=== PATIENT | male | born 1950 | race Asian ===

== ENCOUNTER 2018-08-08 03:59 | Inpatient (IN) | payer MEDICARE, MEDICAID ==
[~2018-08-08] VITALS: Ht 165.1 cm; Wt 59.9 kg
--- NOTE | 2018-08-08 04:07 | NUR ---
ED Nurse Note: Received report from PERLA Aguilar. Patient awake and eating. AO2. NAD. Denies pain and SOB.
--- NOTE | 2018-08-08 04:08 | Emergency Room Report ---
History of Present Illness General Chief Complaint: Altered Level of Consciousness Source: Patient, Medical Record, EMS Present Illness HPI Is a 67-year-old Irish male with a history of insulin-dependent diabetes. He presents with chief complaint of hypoglycemia. He was at long term and was diaphoretic and hypotensive and altered mental status. Blood glucose was 27. He was given amp of D50. He felt better now. Still weak. No nausea no vomiting. No fever chills. Unknown reason why he was hypoglycemic. Allergies: Coded Allergies: No Known Allergies (Unverified , 08/08/18) Patient History Past Medical History: see triage record, old chart reviewed, DM Past Surgical History: other Pertinent Family History: none Social History: Denies: smoking Immunizations: other Reviewed Nursing Documentation: PMH: Agreed; PSxH: Agreed Nursing Documentation-PMH Past Medical History Deferred: Patient Unconscious Review of Systems Constitutional: Reports: malaise, weakness Eye: Denies: eye pain, blurred vision ENT: Denies: ear pain, nose congestion, throat swelling Respiratory: Denies: cough, shortness of breath Cardiovascular: Denies: chest pain, palpitations Gastrointestinal: Denies: abdominal pain, diarrhea, nausea, vomiting Musculoskeletal: Denies: back pain, joint pain Skin: Denies: rash Neurological: Denies: headache, numbness Endocrine: Denies: increased thirst, increased urine Hematologic/Lymphatic: Denies: easy bruising All Other Systems: negative except mentioned in HPI Physical Exam Vital Signs Date Time Temp Pulse Resp B/P (MAP) Pulse Ox O2 Delivery O2 Flow Rate FiO2 08/08/18 03:41 98.4 60 22 100/53 100 Room Air vitals normal Sp02 EP Interpretation: reviewed, normal General Appearance: well appearing, no apparent distress, alert, lethargic Head: normocephalic, atraumatic Eyes: bilateral eye PERRL, bilateral eye EOMI ENT: hearing grossly normal, normal pharynx Neck: full range of motion, supple, no meningismus Respiratory: chest non-tender, lungs clear, normal breath sounds Cardiovascular #1: regular rate, rhythm, no murmur Gastrointestinal: normal bowel sounds, non tender, no mass, no organomegaly, no bruit, non-distended Musculoskeletal: back normal, normal range of motion Psychiatric: mood/affect normal Skin: warm/dry Medical Decision Making Diagnostic Impression: Primary Impression: Altered level of consciousness Additional Impressions: Hypoglycemia due to type 1 diabetes mellitus UTI (urinary tract infection) Qualified Codes: N30.00 - Acute cystitis without hematuria Anemia Qualified Codes: D64.9 - Anemia, unspecified Leukopenia Qualified Codes: D72.819 - Decreased white blood cell count, unspecified Thrombocytopenia ER Course Patient presents with altered mental status secondary to hypoglycemia. Blood sugar glucose improved. Patient failure. He still little bit confused. No focal deficit to indicate TIA or CVA. He does have infectious process. We'll treat for UTI. Will admit for glucose monitoring and IV antibiotics. I discussed the case with Dr. Fontenot who will admit. Lab Results Impression lab with pantocytopenia EKG Diagnostic Results Rate: normal Rhythm: NSR ST Segments: no acute changes Rhythm Strip Diag. Results Rhythm Strip Time: 04:08 EP Interpretation: yes Rate: 60 Rhythm: NSR, no PVC's, no ectopy Last Vital Signs Date Time Temp Pulse Resp B/P (MAP) Pulse Ox O2 Delivery O2 Flow Rate FiO2 08/08/18 03:41 98.4 60 22 100/53 100 Room Air Status: improved Disposition: ADMITTED INPATIENT Condition: Serious Mauri Jackson MD Aug 08, 2018 04:08
--- NOTE | 2018-08-08 04:15 | NUR ---
ED Nurse Note: Imaging at bedside
[2018-08-08 04:26] LABS: HEMATOCRIT 29.4 % (42.0-52.0); HEMOGLOBIN 10.4 G/DL (14.2-18.0); MEAN CORPUSCULAR VOLUME 95 FL (80-99); PLATELET COUNT 47 K/UL (150-450); RED BLOOD COUNT 3.09 M/UL (4.70-6.10); RED CELL DISTRIBUTION WIDTH 12.6 % (11.6-14.8); WHITE BLOOD COUNT 2.9 K/UL (4.8-10.8)
[2018-08-08 04:37] VITALS: BP 104/51
[2018-08-08 04:38] LABS: ANION GAP 3 mmol/L (5-15); BLOOD UREA NITROGEN 19 mg/dL (7-18); CALCIUM 7.6 MG/DL (8.5-10.1); CARBON DIOXIDE 29 MMOL/L (21-32); CHLORIDE 104 MMOL/L (98-107); CREATININE 0.8 MG/DL (0.55-1.30); POTASSIUM 3.3 MMOL/L (3.5-5.1); SODIUM 136 MMOL/L (136-145)
--- NOTE | 2018-08-08 04:50 | NUR ---
ED Nurse Note: Urine collected; sent down to lab. Assessed blood glucose; 171. ERMD made aware
[2018-08-08 05:27] LABS: APPEARANCE,URINE CLOUDY; BILIRUBIN, URINE NEGATIVE (NEGATIVE); COLOR,URINE PALE YELLOW; GLUCOSE, URINE (UA) 2+ (NEGATIVE); KETONES,URINE NEGATIVE (NEGATIVE); LEUKOCYTE ESTERASE ,URINE 3+ (NEGATIVE); NITRITE,URINE NEGATIVE (NEGATIVE); PH,URINE 7 (4.5-8.0); PROTEIN,URINE 1+ (NEGATIVE); UROBILINOGEN,URINE NORMAL MG/DL (0.0-1.0)
--- NOTE | 2018-08-08 05:31 | NUR ---
Spoke with Luba at [facility]-aware of patient going back by ambulance.
--- NOTE | 2018-08-08 05:44 | NUR ---
Spoke with Luba again, informed her of patient being admitted to [facility] [place] [place].
[2018-08-08] MEDS ORDERED: cefTRIAXone 1 GM in NS 55 ML IVPB ONE (05:45)
--- NOTE | 2018-08-08 05:58 | NUR ---
ED Nurse Note: VRE CRE MRSA swabs collected; sent down to lab
[2018-08-08 06:00] VITALS: BP 102/66
[2018-08-08] MEDS ORDERED: XIFAXAN550 MG ORAL (06:11)
[2018-08-08] MEDS ORDERED: TAMSULOSIN HCL0.4 MG ORAL (06:11)
[2018-08-08] MEDS ORDERED: LACTULOSE20 GM/301 ORAL (06:11)
[2018-08-08] MEDS ORDERED: SPIRONOLACTONE100 MG ORAL (06:11)
[2018-08-08] MEDS ORDERED: PROPRANOLOL HCL10 MG ORAL (06:11)
[2018-08-08] MEDS ORDERED: VIREAD300 MG ORAL (06:11)
[2018-08-08] MEDS ORDERED: DITROPAN10 MG ORAL (06:11)
[2018-08-08] MEDS ORDERED: HUMALOG100 UNIT/3 SUBQ (06:11)
[2018-08-08] MEDS ORDERED: FUROSEMIDE20 M1 ORAL (06:11)
[2018-08-08] MEDS ORDERED: ASPIR 8181 MG ORAL (06:11)
[2018-08-08] MEDS ORDERED: ATORVASTATIN CA20 MG ORAL (06:11)
[2018-08-08] MEDS ORDERED: NOVOLIN 70100 UNIT/2 SQ ×2 (06:11)
[2018-08-08] MEDS ORDERED: ISOSORBIDE DINI30 MG ORAL (06:11)
[2018-08-08 06:30] VITALS: BP 115/55
[2018-08-08 07:00] VITALS: BP 102/81
[2018-08-08] MEDS: D5 1/2NS w/KCl 20mEq 1,000 ML IV SCH ×6 (07:04→16:14)
--- NOTE | 2018-08-08 07:12 | NUR ---
ED Nurse Note: Called Med Surg for report. Currently shift change report. Will attempt again at 0730
--- NOTE | 2018-08-08 07:31 | NUR ---
TRANSFER TO FLOOR: Patient transferred to Med Surg 315-2 as ordered, per MD Po. Report given to PERLA Rapp. Belongings list completed with receiving RN. Pt AO2. PARAG. VSS.
--- NOTE | 2018-08-08 08:00 | NUR ---
NURSE NOTES: Pt received from ER Polish speaker. Will follow up with Dr Fontenot for orders. Breathing room air no signs of distress or facial grimace of pain
[2018-08-08] MEDS: cefTRIAXone 1 GM in D5W 55 ML IVPB SCH (12:00)
--- NOTE | 2018-08-08 12:22 | Consultation ---
History of Present Illness General Date patient seen: Aug 08, 2018 Chief Complaint: Altered Level of Consciousness Present Illness HPI 67-year-old Faroese male with a history of insulin-dependent diabetes, Hepatitis , cirrhosis, was recently discharged form [facility] to [facility] , brought in by paramedics with CC of ALOC secondary to hypoglycemia. He was diaphoretic and hypotensive. His Blood glucose was 27. He was given amp of D50. Pt is admitted for further work up. Pt is awake, doesn't speak Australian and according to children at bed site, he is confused. Allergies: Coded Allergies: No Known Allergies (Unverified , 08/08/18) Medication History Scheduled Aspirin* (Aspir 81*), 81 MG ORAL DAILY, (Reported) Atorvastatin Calcium* (Atorvastatin Calcium*), 20 MG ORAL BEDTIME, (Reported) Furosemide* (Lasix*), 20 MG ORAL DAILY, (Reported) Insulin NPH Hum/Reg Insulin Hm (Novolin 70-30 Flexpen), 50 UNIT SQ QHS, ( Reported) Isosorbide Dinitrate* (Isordil*), 30 MG ORAL DAILY, (Reported) Lactulose (Lactulose*), 30 ML ORAL BID, (Reported) Oxybutynin Chloride (Oxybutynin Chloride), 10 MG ORAL DAILY, (Reported) Propranolol Hcl* (Inderal*), 10 MG ORAL BID, (Reported) Rifaximin* (Xifaxan*), 550 MG ORAL TWICE A DAY, (Reported) Spironolactone* (Spironolactone*), 50 MG ORAL DAILY, (Reported) Tamsulosin Hcl (Tamsulosin Hcl*), 0.4 MG ORAL BEDTIME, (Reported) Tenofovir Disoproxil Fumarate* (Viread*), 25 MG ORAL DAILY, (Reported) Miscellaneous Medications Insulin Lispro (Humalog), 0 SUBQ, (Reported) Insulin NPH Hum/Reg Insulin Hm (Novolin 70-30 Flexpen), 100 UNIT SQ, (Reported) Patient History Healthcare decision maker Resuscitation status Full Code Advanced Directive on File Past Medical/Surgical History Past Medical/Surgical History: (1) History of diabetes mellitus (2) Hepatic cirrhosis (3) hepatitis Review of Systems All Other Systems: negative except mentioned in HPI Physical Exam General Appearance: cachetic Lines, tubes and drains: peripheral HEENT: normocephalic, atraumatic Neck: non-tender, normal alignment Respiratory/Chest: chest wall non-tender, lungs clear Breasts: no masses Cardiovascular/Chest: normal peripheral pulses, normal rate Abdomen: normal bowel sounds, no organomegaly, other - ? ascites Genitourinary/Rectal: normal genital exam Extremities: normal range of motion Skin Exam: normal pigmentation Last 24 Hour Vital Signs Date Time Temp Pulse Resp B/P (MAP) Pulse Ox O2 Delivery O2 Flow Rate FiO2 08/08/18 08:13 Room Air 08/08/18 07:23 97.6 67 15 102/81 100 Nasal Cannula 2.0 08/08/18 07:00 97.6 67 15 102/81 100 Nasal Cannula 2.0 08/08/18 06:30 97.6 63 18 115/55 96 Nasal Cannula 2.0 08/08/18 06:00 98.4 64 16 102/66 99 Nasal Cannula 2.0 08/08/18 05:29 60 22 Nasal Cannula 2.0 08/08/18 04:37 98.4 60 22 104/51 100 Nasal Cannula 2.0 08/08/18 03:41 98.4 60 22 100/53 100 Room Air Intake and Output 08/07/18 08/08/18 19:00 07:00 Intake Total 1055 ml Balance 1055 ml Intake IV Total 1055 ml # Voids 1 Laboratory Tests Test 08/08/18 04:02 08/08/18 04:50 White Blood Count 2.9 K/UL (4.8-10.8) L Red Blood Count 3.09 M/UL (4.70-6.10) L Hemoglobin 10.4 G/DL (14.2-18.0) L Hematocrit 29.4 % (42.0-52.0) L Mean Corpuscular Volume 95 FL (80-99) Mean Corpuscular Hemoglobin 33.5 PG (27.0-31.0) H Mean Corpuscular Hemoglobin Concent 35.3 G/DL (32.0-36.0) Red Cell Distribution Width 12.6 % (11.6-14.8) Platelet Count 47 K/UL (150-450) L Mean Platelet Volume 7.6 FL (6.5-10.1) Neutrophils (%) (Auto) % (45.0-75.0) Lymphocytes (%) (Auto) % (20.0-45.0) Monocytes (%) (Auto) % (1.0-10.0) Eosinophils (%) (Auto) % (0.0-3.0) Basophils (%) (Auto) % (0.0-2.0) Differential Total Cells Counted 100 Neutrophils % (Manual) 70 % (45-75) Lymphocytes % (Manual) 19 % (20-45) L Monocytes % (Manual) 9 % (1-10) Eosinophils % (Manual) 1 % (0-3) Basophils % (Manual) 1 % (0-2) Band Neutrophils 0 % (0-8) Platelet Estimate Decreased L Platelet Morphology Normal Hypochromasia 1+ Sodium Level 136 MMOL/L (136-145) Potassium Level 3.3 MMOL/L (3.5-5.1) L Chloride Level 104 MMOL/L (98-107) Carbon Dioxide Level 29 MMOL/L (21-32) Anion Gap 3 mmol/L (5-15) L Blood Urea Nitrogen 19 mg/dL (7-18) H Creatinine 0.8 MG/DL (0.55-1.30) Estimat Glomerular Filtration Rate > 60 mL/min (>60) Glucose Level 185 MG/DL (74-106) H Calcium Level 7.6 MG/DL (8.5-10.1) L Troponin I 0.041 ng/mL (0.000-0.056) Urine Color Pale yellow Urine Appearance Cloudy Urine pH 7 (4.5-8.0) Urine Specific [place] 1.010 (1.005-1.035) Urine Protein 1+ (NEGATIVE) H Urine Glucose (UA) 2+ (NEGATIVE) H Urine Ketones Negative (NEGATIVE) Urine Blood 4+ (NEGATIVE) H Urine Nitrite Negative (NEGATIVE) Urine Bilirubin Negative (NEGATIVE) Urine Urobilinogen Normal MG/DL (0.0-1.0) Urine Leukocyte Esterase 3+ (NEGATIVE) H Urine RBC 2-4 /HPF (0 - 0) H Urine WBC 20-30 /HPF (0 - 0) H Urine Squamous Epithelial Cells Occasional /LPF Urine Bacteria Few /HPF (NONE) Urine Yeast Moderate /HPF (NONE) H Microbiology Date/Time Source Procedure Growth Status 08/08/18 05:50 Rectum Received Height (Feet): 5 Height (Inches): 7.00 Weight (Pounds): 170 Medications Current Medications Medications (Trade) Dose Ordered Sig/Aubrey Route PRN Reason Start Time Stop Time Status Last Admin Dose Admin Ceftriaxone Sodium 1 gm/ Dextrose 55 ml @ 110 mls/hr Q24H IVPB 08/08/18 12:00 08/15/18 11:59 Dextrose (Dextrose 50%) 25 ml Q30M PRN IV Hypoglycemia 08/08/18 12:00 09/07/18 11:59 UNV Dextrose (Dextrose 50%) 50 ml Q30M PRN IV Hypoglycemia 08/08/18 12:00 09/07/18 11:59 UNV Dextrose/ Electrolytes 1,000 ml @ 100 mls/hr Q10H IV 08/08/18 07:00 09/07/18 06:59 08/08/18 07:04 Insulin Aspart (NovoLOG) BEFORE MEALS AND HS SUBQ 08/08/18 16:30 09/07/18 16:29 UNV Isosorbide Dinitrate (Isordil) 30 mg DAILY ORAL 08/08/18 11:00 09/07/18 10:59 Lactulose (Cephulac) 30 gm THREE TIMES A DAY ORAL 08/08/18 13:00 09/07/18 12:59 UNV Oxybutynin Chloride (Ditropan) 10 mg BEFORE BREAKFAST ORAL 08/09/18 06:30 09/08/18 06:29 Propranolol HCl (Inderal) 10 mg EVERY 12 HOURS ORAL 08/08/18 21:00 09/07/18 20:59 Rifaximin (Xifaxan) 550 mg EVERY 12 HOURS ORAL 08/08/18 21:00 08/15/18 20:59 Tamsulosin HCl (Flomax) 0.4 mg BEDTIME ORAL 08/08/18 21:00 09/07/18 20:59 Assessment/Plan Problem List: (1) Acute encephalopathy ICD Codes: G93.40 - Encephalopathy, unspecified SNOMED: 61847256, 670505668 (2) Hypoglycemia due to type 1 diabetes mellitus ICD Codes: E10.649 - Type 1 diabetes mellitus with hypoglycemia without coma SNOMED: 53609409373140, 41173158 (3) UTI (urinary tract infection) ICD Codes: N39.0 - Urinary tract infection, site not specified SNOMED: 08820182, 49596806 Qualifiers: Qualified Codes: N30.00 - Acute cystitis without hematuria (4) Thrombocytopenia ICD Codes: D69.6 - Thrombocytopenia, unspecified SNOMED: 315633302, 969055617 (5) Anemia ICD Codes: D64.9 - Anemia, unspecified SNOMED: 042265719 Qualifiers: Qualified Codes: D64.9 - Anemia, unspecified (6) Leukopenia ICD Codes: D72.819 - Decreased white blood cell count, unspecified SNOMED: 89212704, 679290114 Qualifiers: Qualified Codes: D72.819 - Decreased white blood cell count, unspecified (7) hepatitis (8) History of diabetes mellitus ICD Codes: Z86.39 - Personal history of other endocrine, nutritional and metabolic disease SNOMED: 603205373 (9) Hepatic cirrhosis ICD Codes: K74.60 - Unspecified cirrhosis of liver SNOMED: 04717065 Assessment/Plan paracentesis IV abx sliding scale check ammonia level GI and endo evaluation dvt prophylaxis f/u labs check pt/ptt. Macy Jasso MD Aug 08, 2018 12:22
--- NOTE | 2018-08-08 12:50 | NUR ---
NURSE NOTES: pt extremely confused family here at bedside earlier in shift stating that pt does not understand the need for IV. Georgian speaker, unable to understand what pt is saying family translating " HE is not making sense right now" Will follow up with MD for possible change from IV to PO
[2018-08-08] MEDS: Lactulose 20gm/30ml UDC ORAL SCH ×2 (13:21→17:24)
--- NOTE | 2018-08-08 15:52 | Diagnostic Imaging Report ---
EXAM: XR Chest, 1 View CLINICAL HISTORY: AMS TECHNIQUE: Frontal view of the chest. COMPARISON: No relevant prior studies available. FINDINGS: Lungs: There are some mild bronchiectatic changes in the left hilar area. Pleural space: Unremarkable. No pneumothorax. Heart: Unremarkable. No cardiomegaly. Mediastinum: Unremarkable. Bones/joints: Degenerative changes in the thoracic spine. IMPRESSION: Mild left hilar bronchiectasis. No acute consolidation.
[2018-08-08] MEDS: Fluconazole 100mg tab ORAL SCH (16:08)
[2018-08-08] MEDS: NovoLOG Insulin Flexpen SUBQ SCH ×2 (17:23→22:21)
[2018-08-08] MEDS ORDERED: Propranolol 10mg tab ORAL SCH (18:00)
--- NOTE | 2018-08-08 19:45 | NUR ---
HAND-OFF: Report given to Jesús DUNCAN.
--- NOTE | 2018-08-08 19:45 | NUR ---
NURSE NOTES: Dr Fontenot phoned to be made aware of pt bx of pulling on iv tubing and pole, and suddenly attempting to get out of bed. Pt blood sugar running in the 300 D5 with 20meq, Dr gave orders to d/c previous fluid and change fluid to NS with [address] informed that end of shift while radio script writer was providing pereneal care hematuria noted. made aware that pt does not have heparin as a dvt prophylaxis. Pt has an order for sequential devices , yet walk frequently , placing devices may potentiate fall risk. made aware of patient impulse bx. Dr gave instructions to reattempt to place IV if not possible , gave okay to attempt in leg. If the leg iv is not successful no further orders
[2018-08-08 20:00] VITALS: BP 118/63
--- NOTE | 2018-08-08 20:00 | NUR ---
NURSE NOTES: Pt lying in bed w/bed in lowest position and call light within reach. Pt alert to self only and alternates between speaking Irish/Upper Sorbian and VSS. Per morning shift RN, pt pulled out IV and presently has no IV access; will attempt to start IV. Skin intact and pt in no apparent distress at this time. Will continue to monitor.
[2018-08-08] MEDS ORDERED: Atorvastatin 20mg tab ORAL SCH (21:00)
[2018-08-08] MEDS ORDERED: NS w/KCl 20mEq 1,000 ML IV SCH (21:00)
[2018-08-08] MEDS ORDERED: Tamsulosin 0.4mg cap ORAL SCH (21:00)
--- NOTE | 2018-08-08 21:00 | History and Physical Report ---
DATE OF ADMISSION: 08/08/2018 NOTE: INCOMPLETE DICTATION CHIEF COMPLAINT: The patient is a 67-year-old male, who presents with chief complaint of altered mental status. HISTORY OF PRESENT ILLNESS: The patient has history of insulin-dependent diabetes. The patient himself is Bulgarian-speaking. The patient is able to speak some Greek. Apparently, the patient was confused at [facility]. He was noted to have blood sugar of 27. EMS was called. The patient was transported to [facility]. The patient was admitted for hypoglycemia secondary to insulin use in diabetes. REVIEW OF SYSTEMS: CONSTITUTIONAL: The patient denies weight loss or weight gain. The patient denies fevers or chills. HEENT: The patient denies ear or throat pain. The patient denies headache. CARDIOVASCULAR: The patient denies palpitation or chest pain. CHEST: The patient denies wheeze or shortness breath. ABDOMINAL: The patient denies nausea, vomiting, diarrhea, or constipation. GENITOURINARY: The patient denies dysuria or increased frequency of urination. NEUROMUSCULAR: The patient denies seizures or generalized weakness. PAST MEDICAL HISTORY: Significant for: 1. Diabetes type 2. 2. Hypercholesterolemia. 3. Chronic hepatitis B. 4. Liver cirrhosis. 5. Portal hypertension. 6. Benign prostatic hypertrophy. PAST SURGICAL HISTORY: The patient denies. CURRENT MEDICATIONS: 1. Aspirin 81 mg one tablet p.o. daily. 2. Atorvastatin 20 mg p.o. daily. 3. Lasix 20 mg p.o. daily. 4. Lispro sliding scale. 5. Isosorbide dinitrate 30 mg p.o. daily. 6. 70/30 insulin 25 units subcutaneously nightly. 7. Insulin 70/30, 50 units subcutaneously every morning. 8. Oxybutynin 10 mg p.o. daily. 9. Propranolol 10 mg p.o. p.r.n. systolic greater than one p.o. twice daily. 10. Spironolactone 50 mg p.o. daily. 11. Flomax 0.4 mg p.o. daily. 12. Tenofovir 25 mg p.o. daily. 13. Xifaxan 550 mg p.o. twice daily. ALLERGIES: No known drug allergies. SOCIAL HISTORY: The patient is single and is a resident of [facility]. The patient denies tobacco or alcohol use. PHYSICAL EXAMINATION: VITAL SIGNS: Temperature 98.4, respirations 16, blood pressure 102/66, pulse 64. GENERAL: The patient is thin-appearing male, in no apparent distress. HEENT: Eyes, pupils equal and responsive to light and accommodation. Extraocular movements are intact. NECK: Supple without lymphadenopathy. CHEST: Lungs are clear to auscultation bilaterally without wheezes or rales. CARDIOVASCULAR: Regular rhythm and rate. S1 and S2 normal without murmurs, rubs, or gallops. ABDOMEN: Soft, nontender, and nondistended. Positive bowel sounds. No evidence of hepatosplenomegaly. Currently, no rebound or guarding noted. EXTREMITIES: Negative for clubbing, cyanosis, or edema. RECTAL: Refused. GENITAL: Refused. NEUROLOGIC: Cranial nerves II through XII are grossly intact without focal deficits. Motor strength is 5/5 bilaterally intact. Deep tendon reflexes are 2+, plantar. LABORATORY STUDIES: WBC 2.9, hemoglobin 10.4, hematocrit 29.4, platelets 47,000. Sodium 136, potassium 3.3, chloride 104, CO2 29, BUN 19, creatinine 0.8, glucose 185. Urinalysis showed 1+ protein, 2+ glucose, 4+ blood, 3+ leukocyte esterase with 20-30 wbc's. ASSESSMENT: This is a 67-year-old male with: 1. Hypoglycemia. 2. Urinary tract infection. 3. Diabetes type 2. 4. Hypercholesterolemia. 5. Chronic hepatitis B. 6. Liver cirrhosis. 7. Portal hypertension. 8. Benign prostatic hypertrophy. TREATMENT: 1. Hypoglycemia/diabetes type 2. The patient has been started on NovoLog sliding scale. The patient is currently receiving intravenous fluids. An endocrinology consultation has been obtained with Dr. Kellogg. 2. Urinary tract infection. The patient has been started empirically on intravenous ceftriaxone. A urine culture is pending. We will follow recommendation. 3. Hypercholesterolemia. Continue Lipitor as above. 4. Hypertension. Prudence Whitaker JOB#: [id number] CC:
--- NOTE | 2018-08-08 21:30 | NUR ---
NURSE NOTES: Per morning shift RN stated that if cannot re-establish IV access may DC IVF. Will attempt to start IV.
--- NOTE | 2018-08-08 21:45 | History and Physical Report ---
DATE OF ADMISSION: 08/08/2018 CHIEF COMPLAINT: The patient is a 67-year-old male, who presents with chief complaint of low blood sugar. HISTORY OF PRESENT ILLNESS: The patient is a resident of [facility]. The patient became increasingly confused this morning. The patient's blood sugar was checked. The patient's fingerstick glucose was found to be 27. The patient was transported to [facility]. The patient was admitted for hypoglycemia. REVIEW OF SYSTEMS: CONSTITUTIONAL: The patient denies weight loss or weight gain. The patient denies fevers or chills. HEENT: The patient denies ear or throat pain. The patient denies headache. CARDIOVASCULAR: The patient denies palpitations or chest pain. CHEST: The patient denies wheeze or shortness of breath. ABDOMEN: The patient denies nausea, vomiting, diarrhea, or constipation. GENITOURINARY: The patient denies dysuria or increased frequency of urination. NEUROMUSCULAR: The patient denies seizures or generalized weakness. PAST MEDICAL HISTORY: Significant for, 1. Diabetes type 2. 2. Hypercholesterolemia. 3. Chronic hepatitis B. 4. Liver cirrhosis. 5. Portal hypertension. 6. Benign prostatic hypertrophy. PAST SURGICAL HISTORY: The patient denies. CURRENT MEDICATIONS: 1. Aspirin 81 mg one tablet p.o. daily. 2. Atorvastatin 20 mg p.o. daily. 3. Furosemide 20 mg p.o. daily. 4. Lispro sliding scale. 5. Isosorbide dinitrate 30 mg p.o. daily. 6. Lactulose 30 mL p.o. twice daily. 7. NPH insulin 25 units subcutaneously at bedtime. 8. 70/30, insulin 50 units subcutaneously q.a.m. 9. 70/30, insulin 25 units subcutaneously at bedtime. 10. Oxybutynin 10 mg p.o. daily. 11. Propranolol 10 mg p.o. twice daily. 12. Spironolactone 50 mg p.o. daily. 13. Flomax 0.4 mg p.o. daily. 14. Tenofovir 25 mg p.o. daily. 15. Xifaxan 550 mg p.o. twice daily. ALLERGIES: No known drug allergies. SOCIAL HISTORY: The patient is single and lives at [facility]. The patient denies tobacco or alcohol use. PHYSICAL EXAMINATION: VITAL SIGNS: Temperature 98.4, respirations 16, pulse 64, and blood pressure 102/66. GENERAL: The patient is a well-developed and well-nourished thin appearing male, in no apparent distress. HEENT: Eyes, pupils are equal and responsive to light and accommodation. Extraocular movements are intact. NECK: Supple without lymphadenopathy. CHEST: Lungs are clear to auscultation bilaterally without wheezes or rales. CARDIOVASCULAR: Regular rhythm and rate. S1 and S2 are normal without murmurs, rubs, or gallops. ABDOMEN: Soft, nontender, and nondistended. Positive bowel sounds. No evidence of hepatosplenomegaly. Currently, no rebound or guarding noted. EXTREMITIES: Negative for clubbing, cyanosis, or edema. RECTAL: Refused. GENITAL: Refused. NEUROLOGIC: Cranial nerves II through XII are grossly intact without focal deficits. Motor strength is 5/5 bilaterally. Deep tendon reflexes are 2+ plantar. LABORATORY STUDIES: WBC 2.9, hemoglobin 10.4, hematocrit 29.4, and platelets 47,000. Sodium 136, potassium 3.2, chloride 104, CO2 29, BUN 19, creatinine 0.8, and glucose 185. Ammonia level elevated at 80. Urinalysis showed 1+ protein, 2+ glucose, 4+ blood, and 3+ leukocyte esterase with 20 to 30 wbc's. ASSESSMENT: This is a 67-year-old male. 1. Hypoglycemia. 2. Diabetes type 2. 3. Hypercholesteremia. 4. Hepatitis B. 5. Liver cirrhosis. 6. Portal hypertension. 7. Benign prostatic hypertrophy. TREATMENT: 1. Hypoglycemia/diabetes type 2. The patient has already been placed on NovoLog sliding scale. An Endocrinology consultation is pending with Dr. Kellogg. The patient is currently receiving D5 intravenously. 2. Urinary tract infection. A urine culture is pending. The patient has been started on ceftriaxone empirically. 3. Hypercholesteremia. Continue Lipitor as above. 4. Hepatitis B. Continue tenofovir as above. 5. Liver cirrhosis. 6. Portal hypertension. 7. Benign prostatic hypertrophy. Continue Flomax as above. Salty Bailey M.D. DR: MARIUSZ JOB#: [id number] CC:
[2018-08-08] MEDS: Propranolol 10mg tab ORAL SCH (22:17)
[2018-08-08] MEDS: Tamsulosin 0.4mg cap ORAL SCH (22:17)
[2018-08-09] VITALS: BP 132/64
[2018-08-09 04:00] VITALS: BP 104/68
--- NOTE | 2018-08-09 04:00 | NUR ---
NURSE NOTES: Left vm for re: pt's fever of 101.7 F; do not have acetaminophen order but implemented cooling measures. Will await call back.
--- NOTE | 2018-08-09 04:30 | NUR ---
NURSE NOTES: Left second vm for MD re: pt's fever of 101.7 F. Will continue to monitor.
[2018-08-09] MEDS: Oxybutynin 5mg tab ORAL SCH (06:27)
[2018-08-09] MEDS: NovoLOG Insulin Flexpen SUBQ SCH ×5 (06:29→21:01)
--- NOTE | 2018-08-09 07:30 | NUR ---
NURSE NOTES: Patient is in bed awake and able to verbalize needs. Patient denies pain at this time. Patient is stable with no s/s acute distress. Patient had blood drawn for morning labs. Patient in bed in lowest and locked position and call light within reach. All safety measures provided. Will continue to monitor.
--- NOTE | 2018-08-09 07:30 | NUR ---
HAND-OFF: Report given to PERLA Reynolds. Endorsed pt has fever and to please administer Tylenol 650 mg PO once it's verified by pharmacy.
[2018-08-09 08:00] VITALS: BP 112/58
--- NOTE | 2018-08-09 08:00 | NUR ---
NURSE NOTES: Rechecked patient's temperature 99.4. Will recheck temperature in 15 minutes.
--- NOTE | 2018-08-09 08:15 | NUR ---
NURSE NOTES: Rechecked patient's temperature, 98.4. Will continue to monitor.
[2018-08-09 08:28] LABS: HEMATOCRIT 26.1 % (42.0-52.0); HEMOGLOBIN 8.9 G/DL (14.2-18.0); MEAN CORPUSCULAR VOLUME 97 FL (80-99); PLATELET COUNT 29 K/UL (150-450); RED BLOOD COUNT 2.68 M/UL (4.70-6.10); RED CELL DISTRIBUTION WIDTH 13.1 % (11.6-14.8); WHITE BLOOD COUNT 4.4 K/UL (4.8-10.8)
[2018-08-09 08:37] LABS: LACTATE DEHYDROGENASE 322 U/L (81-234)
[2018-08-09] MEDS: Fluconazole 100mg tab ORAL SCH (08:49)
[2018-08-09] MEDS: Lactulose 20gm/30ml UDC ORAL SCH ×3 (08:49→17:32)
[2018-08-09] MEDS: Propranolol 10mg tab ORAL SCH ×2 (08:49→21:00)
[2018-08-09] MEDS: Spironolactone 50mg tab ORAL SCH (08:49)
[2018-08-09 08:51] LABS: % IRON SATURATION 23 % (15-50); IRON 39 ug/dL (50-175); TOTAL IRON BINDING CAPACITY 169 ug/dL (250-450)
[2018-08-09] MEDS: [UNRECOGNIZED DRUG - REMARK] ORAL SCH (08:51)
[2018-08-09 08:57] LABS: ALANINE AMINOTRANSFERASE 98 U/L (12-78); ALBUMIN 1.4 G/DL (3.4-5.0); ALBUMIN/GLOBULIN RATIO 0.4 (1.0-2.7); ALKALINE PHOSPHATASE 114 U/L (46-116); ANION GAP 3 mmol/L (5-15); ASPARTATE AMINO TRANSFERASE 92 U/L (15-37); BILIRUBIN,TOTAL 3.2 MG/DL (0.2-1.0); CALCIUM 6.6 MG/DL (8.5-10.1); CARBON DIOXIDE 21 MMOL/L (21-32); CHLORIDE 112 MMOL/L (98-107); CREATININE 0.9 MG/DL (0.55-1.30); PHOSPHORUS 1.9 MG/DL (2.5-4.9); SODIUM 136 MMOL/L (136-145)
[2018-08-09] MEDS ORDERED: Aspirin Baby 81mg ORAL SCH (09:00)
--- NOTE | 2018-08-09 09:20 | NUR ---
NURSE NOTES:K:7 RESULT GIVEN BY MELQUIADES(FR. LAB),RELAYED TO ASHLEE DUNCAN(PRIMARY NURSE).
[2018-08-09 09:23] LABS: BLOOD UREA NITROGEN 21 mg/dL (7-18)
[2018-08-09 09:24] LABS: BILIRUBIN,DIRECT 1.1 MG/DL (0.0-0.3)
--- NOTE | 2018-08-09 09:33 | NUR ---
NURSE NOTES: Left message for Dr. Bailey regarding lab values. Potassium level 7.0. Awaiting response. Patient is stable, will continue to monitor.
--- NOTE | 2018-08-09 10:16 | NUR ---
NURSE NOTES: Spoke to Dr. Fontenot about patient's potassium level 7.0. Received new orders to recheck potassium level and hold NS with 20meq KCl IV. Will continue to monitor patient.
[2018-08-09] MEDS ORDERED: NS w/KCl 20mEq 1,000 ML IV SCH (10:30)
--- NOTE | 2018-08-09 11:06 | Diagnostic Imaging Report ---
EXAM: XR Chest, 1 View CLINICAL HISTORY: INFECT TECHNIQUE: Frontal view of the chest. COMPARISON: Chest x-ray dated 08/08/18 FINDINGS: Lungs: Mildly prominent perihilar interstitial markings with mild bronchiectasis, not significantly changed. The lungs are otherwise clear without focal consolidation. Pleural space: Unremarkable. The costophrenic angles are sharp. No visible pneumothorax. Heart: Unremarkable. No cardiomegaly. Mediastinum: Unremarkable. Bones/joints: Unremarkable. IMPRESSION: Mildly prominent perihilar interstitial markings with mild bronchiectasis, not significantly changed.
--- NOTE | 2018-08-09 11:44 | NUR ---
NURSE NOTES: Left a message for Dr. Fontenot about patient's rechecked potassium level within range. Awaiting response. Will continue to monitor patient.
[2018-08-09 11:59] VITALS: BP 108/58
--- NOTE | 2018-08-09 12:30 | NUR ---
NURSE NOTES: Received new orders to change patient's diet to CCHO medium, patient tolerated meal well. Will continue to monitor.
--- NOTE | 2018-08-09 13:00 | General Progress Note ---
Assessment/Plan Problem List: (1) Hepatic cirrhosis ICD Codes: K74.60 - Unspecified cirrhosis of liver SNOMED: 99776920 (2) History of diabetes mellitus ICD Codes: Z86.39 - Personal history of other endocrine, nutritional and metabolic disease SNOMED: 858339610 (3) Acute encephalopathy ICD Codes: G93.40 - Encephalopathy, unspecified SNOMED: 59235574, 447203712 (4) Hypoglycemia due to type 1 diabetes mellitus ICD Codes: E10.649 - Type 1 diabetes mellitus with hypoglycemia without coma SNOMED: 60862900128532, 53724688 (5) Thrombocytopenia ICD Codes: D69.6 - Thrombocytopenia, unspecified SNOMED: 832389235, 168637365 Assessment/Plan start Levemir 15 units daily - first dose now start Novolog 5 units ac tid continue NISS Subjective ROS Limited/Unobtainable: Yes Allergies: Coded Allergies: No Known Allergies (Unverified , 08/08/18) Subjective admitted with hypoglycemia resident of [facility] DM managed by mixed insulin 70/30 he is currently NPO for abdominal US Objective Last 24 Hour Vital Signs Date Time Temp Pulse Resp B/P (MAP) Pulse Ox O2 Delivery O2 Flow Rate FiO2 08/09/18 11:59 99.6 99 19 108/58 (75) 98 08/09/18 09:00 Room Air 08/09/18 08:49 90 112/58 08/09/18 08:49 112/58 08/09/18 08:00 99.4 90 18 112/58 (76) 98 08/09/18 05:30 100.9 08/09/18 04:00 101.7 104 20 104/68 (80) 98 08/09/18 00:00 98.5 108 20 132/64 (86) 97 08/08/18 22:17 113 118/63 08/08/18 21:00 Room Air 08/08/18 20:00 100.3 113 19 118/63 (81) 97 08/08/18 16:00 98.7 08/08/18 16:00 61 17 97 Intake and Output 08/08/18 08/09/18 19:00 07:00 Intake Total 360 ml Balance 360 ml Intake Oral 360 ml # Voids 4 Laboratory Tests 08/09/18 08:00: White Blood Count 4.4#L, Red Blood Count 2.68L, Hemoglobin 8.9L, Hematocrit 26.1L, Mean Corpuscular Volume 97, Mean Corpuscular Hemoglobin 33.1H, Mean Corpuscular Hemoglobin Concent 34.1, Red Cell Distribution Width 13.1, Platelet Count 29L, Mean Platelet Volume 10.4H, Neutrophils (%) (Auto) , Lymphocytes (%) (Auto) , Monocytes (%) (Auto) , Eosinophils (%) (Auto) , Basophils (%) (Auto) , Differential Total Cells Counted 100, Neutrophils % (Manual) 83H, Lymphocytes % (Manual) 10L, Monocytes % (Manual) 4, Eosinophils % (Manual) 0, Basophils % ( Manual) 0, Band Neutrophils 3, Platelet Estimate DecreasedL, Platelet Morphology Normal, Polychromasia Occasional, Hypochromasia 1+, Erythrocyte Sedimentation Rate 23H, Reticulocyte Count 4.2H, Prothrombin Time 19.9H, Prothromb Time International Ratio 2.0H, Activated Partial Thromboplast Time 52H , Sodium Level 136, Potassium Level 7.0#*H, Chloride Level 112H, Carbon Dioxide Level 21, Anion Gap 3L, Blood Urea Nitrogen 21H, Creatinine 0.9, Estimat Glomerular Filtration Rate > 60, Glucose Level 225H, Calcium Level 6.6L, Phosphorus Level 1.9L, Magnesium Level 1.2L, Iron Level 39L, Total Iron Binding Capacity 169L, Percent Iron Saturation 23, Unsaturated Iron Binding 130, Total Bilirubin 3.2H, Direct Bilirubin 1.1H, Aspartate Amino Transf (AST/SGOT) 92H, Alanine Aminotransferase (ALT/SGPT) 98H, Alkaline Phosphatase 114, Ammonia 32, Lactate Dehydrogenase 322H, Total Protein 4.6L, Albumin 1.4L, Globulin 3.2, Albumin/Globulin Ratio 0.4L, Carcinoembryonic Antigen [Pending], Vitamin B12 Level 1804H, Folate 9.2 08/09/18 10:30: Potassium Level 4.6 Height (Feet): 5 Height (Inches): 7.00 Weight (Pounds): 170 General Appearance: no apparent distress Neck: normal alignment Cardiovascular: normal rate Respiratory/Chest: lungs clear Abdomen: normal bowel sounds Edema: no edema noted Arm (L), no edema noted Arm (R), no edema noted Leg (L), no edema noted Leg (R), no edema noted Pedal (L), no edema noted Pedal (R), no edema noted Generalized Objective Current Medications Medications (Trade) Dose Ordered Sig/Aubrey Route PRN Reason Start Time Stop Time Status Last Admin Dose Admin Acetaminophen (Tylenol) 650 mg Q6H PRN ORAL Mild Pain/Temp > 100.5 08/09/18 07:45 09/08/18 07:44 Ceftriaxone Sodium 1 gm/ Dextrose 55 ml @ 110 mls/hr Q24H IVPB 08/08/18 12:00 08/15/18 11:59 08/08/18 12:00 Dextrose (Dextrose 50%) 25 ml Q30M PRN IV Hypoglycemia 08/08/18 12:00 09/07/18 11:59 Dextrose (Dextrose 50%) 50 ml Q30M PRN IV Hypoglycemia 08/08/18 12:00 09/07/18 11:59 Fluconazole (Diflucan) 100 mg DAILY ORAL 08/08/18 16:00 08/15/18 15:59 08/09/18 08:49 Insulin Aspart (NovoLOG) BEFORE MEALS AND HS SUBQ 08/08/18 16:30 09/07/18 16:29 08/09/18 12:20 Isosorbide Dinitrate (Isordil) 30 mg DAILY ORAL 08/08/18 11:00 09/07/18 10:59 08/09/18 08:49 Lactulose (Cephulac) 30 gm THREE TIMES A DAY ORAL 08/08/18 13:00 09/07/18 12:59 08/09/18 08:49 Oxybutynin Chloride (Ditropan) 10 mg BEFORE BREAKFAST ORAL 08/09/18 06:30 09/08/18 06:29 08/09/18 06:27 Patient Own Medication (Patient's Own Med) 1 ea DAILY ORAL 08/09/18 09:00 09/08/18 08:59 08/09/18 08:51 Propranolol HCl (Inderal) 10 mg EVERY 12 HOURS ORAL 08/08/18 21:00 09/07/18 20:59 08/09/18 08:49 Rifaximin (Xifaxan) 550 mg EVERY 12 HOURS ORAL 08/08/18 21:00 08/15/18 20:59 08/09/18 08:49 Sodium Chloride 1,000 ml @ 50 mls/hr Q20H IV 08/09/18 10:30 09/07/18 10:29 Spironolactone (Aldactone) 50 mg DAILY ORAL 08/09/18 09:00 09/08/18 08:59 08/09/18 08:49 Tamsulosin HCl (Flomax) 0.4 mg BEDTIME ORAL 08/08/18 21:00 09/07/18 20:59 08/08/18 22:17 Item Value Date Time Bedside Blood Glucose 292 mg/dl H 08/09/18 1220 Bedside Blood Glucose 268 mg/dl H 08/09/18 0630 Bedside Blood Glucose 373 mg/dl H 08/08/18 2221 Bedside Blood Glucose 354 mg/dl H 08/08/18 1723 Cedric Kellogg MD Aug 09, 2018 13:00
[2018-08-09] MEDS: cefTRIAXone 1 GM in D5W 55 ML IVPB SCH (13:02)
[2018-08-09] MEDS ORDERED: Levemir Flexpen SUBQ SCH (14:00)
--- NOTE | 2018-08-09 14:41 | Internal Med Progress Note ---
Subjective Date of Service: Aug 09, 2018 Physician Name Salty Bailey Attending Physician Charles Fontenot MD Current Medications Medications (Trade) Dose Ordered Sig/Aubrey Route PRN Reason Start Time Stop Time Status Last Admin Dose Admin Acetaminophen (Tylenol) 650 mg Q6H PRN ORAL Mild Pain/Temp > 100.5 08/09/18 07:45 09/08/18 07:44 Ceftriaxone Sodium 1 gm/ Dextrose 55 ml @ 110 mls/hr Q24H IVPB 08/08/18 12:00 08/15/18 11:59 08/09/18 13:02 Dextrose (Dextrose 50%) 25 ml Q30M PRN IV Hypoglycemia 08/09/18 13:15 09/08/18 13:14 Dextrose (Dextrose 50%) 50 ml Q30M PRN IV Hypoglycemia 08/09/18 13:15 09/08/18 13:14 Fluconazole (Diflucan) 100 mg DAILY ORAL 08/08/18 16:00 08/15/18 15:59 08/09/18 08:49 Insulin Aspart (NovoLOG) BEFORE MEALS AND HS SUBQ 08/08/18 16:30 09/07/18 16:29 08/09/18 12:20 Insulin Aspart (NovoLOG) 5 units NOVOTIAC SUBQ 08/09/18 16:50 09/08/18 16:49 Insulin Detemir (Levemir) 15 units DAILY SUBQ 08/09/18 14:00 09/08/18 13:59 08/09/18 13:45 Isosorbide Dinitrate (Isordil) 30 mg DAILY ORAL 08/08/18 11:00 09/07/18 10:59 08/09/18 08:49 Lactulose (Cephulac) 30 gm THREE TIMES A DAY ORAL 08/08/18 13:00 09/07/18 12:59 08/09/18 13:02 Oxybutynin Chloride (Ditropan) 10 mg BEFORE BREAKFAST ORAL 08/09/18 06:30 09/08/18 06:29 08/09/18 06:27 Patient Own Medication (Patient's Own Med) 1 ea DAILY ORAL 08/09/18 09:00 09/08/18 08:59 08/09/18 08:51 Propranolol HCl (Inderal) 10 mg EVERY 12 HOURS ORAL 08/08/18 21:00 09/07/18 20:59 08/09/18 08:49 Rifaximin (Xifaxan) 550 mg EVERY 12 HOURS ORAL 08/08/18 21:00 08/15/18 20:59 08/09/18 08:49 Sodium Chloride 1,000 ml @ 50 mls/hr Q20H IV 08/09/18 10:30 09/07/18 10:29 Spironolactone (Aldactone) 50 mg DAILY ORAL 08/09/18 09:00 09/08/18 08:59 08/09/18 08:49 Tamsulosin HCl (Flomax) 0.4 mg BEDTIME ORAL 08/08/18 21:00 09/07/18 20:59 08/08/18 22:17 Allergies: Coded Allergies: No Known Allergies (Unverified , 08/08/18) ROS Limited/Unobtainable: No Constitutional: Reports: no symptoms HEENT: Reports: no symptoms Cardiovascular: Reports: no symptoms Respiratory: Reports: no symptoms Gastrointestinal/Abdominal: Reports: no symptoms Genitourinary: Reports: no symptoms Neurologic/Psychiatric: Reports: no symptoms Subjective 67 YO M admitted with hypoglycemia. Now UTI. Febrile overnight. Cover for Int Med-Dr Fontenot. Objective Last Vital Signs Date Time Temp Pulse Resp B/P (MAP) Pulse Ox O2 Delivery O2 Flow Rate FiO2 08/09/18 11:59 99.6 99 19 108/58 (75) 98 08/09/18 09:00 Room Air 08/08/18 07:23 2.0 General Appearance: WD/WN, no apparent distress, alert EENT: PERRL/EOMI, normal ENT inspection Neck: non-tender, normal alignment, supple, normal inspection Cardiovascular: normal peripheral pulses, normal rate, regular rhythm, no gallop/murmur, no JVD Respiratory/Chest: chest wall non-tender, lungs clear, normal breath sounds, no respiratory distress, no accessory muscle use Abdomen: normal bowel sounds, non tender, soft, no organomegaly, no mass Extremities: normal range of motion, non-tender Neurologic: kinesiology internship II-XII grossly normal, no motor/sensory deficits Skin: normal pigmentation, warm/dry Laboratory Tests Test 08/09/18 08:00 08/09/18 10:30 White Blood Count 4.4 K/UL (4.8-10.8) #L Red Blood Count 2.68 M/UL (4.70-6.10) L Hemoglobin 8.9 G/DL (14.2-18.0) L Hematocrit 26.1 % (42.0-52.0) L Mean Corpuscular Volume 97 FL (80-99) Mean Corpuscular Hemoglobin 33.1 PG (27.0-31.0) H Mean Corpuscular Hemoglobin Concent 34.1 G/DL (32.0-36.0) Red Cell Distribution Width 13.1 % (11.6-14.8) Platelet Count 29 K/UL (150-450) L Mean Platelet Volume 10.4 FL (6.5-10.1) H Neutrophils (%) (Auto) % (45.0-75.0) Lymphocytes (%) (Auto) % (20.0-45.0) Monocytes (%) (Auto) % (1.0-10.0) Eosinophils (%) (Auto) % (0.0-3.0) Basophils (%) (Auto) % (0.0-2.0) Differential Total Cells Counted 100 Neutrophils % (Manual) 83 % (45-75) H Lymphocytes % (Manual) 10 % (20-45) L Monocytes % (Manual) 4 % (1-10) Eosinophils % (Manual) 0 % (0-3) Basophils % (Manual) 0 % (0-2) Band Neutrophils 3 % (0-8) Platelet Estimate Decreased L Platelet Morphology Normal Polychromasia Occasional Hypochromasia 1+ Erythrocyte Sedimentation Rate 23 MM/HR (0-20) H Reticulocyte Count 4.2 % (0.0-2.0) H Prothrombin Time 19.9 SEC (9.30-11.50) H Prothromb Time International Ratio 2.0 (0.9-1.1) H Activated Partial Thromboplast Time 52 SEC (23-33) H Sodium Level 136 MMOL/L (136-145) Potassium Level 7.0 MMOL/L (3.5-5.1) #*H 4.6 MMOL/L (3.5-5.1) Chloride Level 112 MMOL/L (98-107) H Carbon Dioxide Level 21 MMOL/L (21-32) Anion Gap 3 mmol/L (5-15) L Blood Urea Nitrogen 21 mg/dL (7-18) H Creatinine 0.9 MG/DL (0.55-1.30) Estimat Glomerular Filtration Rate > 60 mL/min (>60) Glucose Level 225 MG/DL (74-106) H Calcium Level 6.6 MG/DL (8.5-10.1) L Phosphorus Level 1.9 MG/DL (2.5-4.9) L Magnesium Level 1.2 MG/DL (1.8-2.4) L Iron Level 39 ug/dL (50-175) L Total Iron Binding Capacity 169 ug/dL (250-450) L Percent Iron Saturation 23 % (15-50) Unsaturated Iron Binding 130 ug/dL (112-346) Total Bilirubin 3.2 MG/DL (0.2-1.0) H Direct Bilirubin 1.1 MG/DL (0.0-0.3) H Aspartate Amino Transf (AST/SGOT) 92 U/L (15-37) H Alanine Aminotransferase (ALT/SGPT) 98 U/L (12-78) H Alkaline Phosphatase 114 U/L (46-116) Ammonia 32 umol/L (11-32) Lactate Dehydrogenase 322 U/L (81-234) H Total Protein 4.6 G/DL (6.4-8.2) L Albumin 1.4 G/DL (3.4-5.0) L Globulin 3.2 g/dL Albumin/Globulin Ratio 0.4 (1.0-2.7) L Carcinoembryonic Antigen Pending Vitamin B12 Level 1804 PG/ML (193-986) H Folate 9.2 NG/ML (8.6-58.9) Microbiology Date/Time Source Procedure Growth Status 08/08/18 04:50 Urine,Clean Catch Urine Culture - Preliminary Resulted 08/08/18 05:50 Rectum Received Intake and Output 08/08/18 08/09/18 19:00 07:00 Intake Total 360 ml Balance 360 ml Intake Oral 360 ml # Voids 4 Assessment/Plan Problem List: (1) Diabetes mellitus type II, uncontrolled Assessment & Plan: Continue levemir and novolog sliding sclae per endocrinology (2) Hepatitis B (3) Cirrhosis of liver (4) Portal hypertension (5) BPH (benign prostatic hyperplasia) Assessment & Plan: Continue flomax (6) Hypoglycemia due to type 1 diabetes mellitus Assessment & Plan: See endocrinology note. (7) UTI (urinary tract infection) Assessment & Plan: Await culture results. Continue ceftriaxone for now (8) Fever Assessment & Plan: Continue ceftriaxone. Await blood culture results. Status: not improved Salty Bailey MD Aug 09, 2018 14:41
--- NOTE | 2018-08-09 15:30 | Consultation ---
DATE OF CONSULTATION: 08/09/2018 GASTROENTEROLOGY CONSULTATION CONSULTING PHYSICIAN: Jamarcus Floyd M.D. CHIEF COMPLAINT: Fever, abdominal pain, cirrhosis, hepatitis B, and altered mental status. HISTORY OF PRESENT ILLNESS: This is a 67-year-old Portuguese male, living in long term, with history of hepatitis C induced cirrhosis, was admitted to the hospital with altered mental status. This admission, he has been having some fevers. GI consultation was requested for evaluation of cirrhosis and abdominal pain. PAST MEDICAL HISTORY: 1. Diabetes type 2. 2. Hypercholesterolemia. 3. Chronic hepatitis B. 4. Liver cirrhosis. 5. Portal hypertension. 6. BPH. ALLERGIES: No known drug allergies. MEDICATIONS: Please see medication reconciliation list. SOCIAL HISTORY: Currently lives in a long term. No recent history of tobacco, alcohol, or drug abuse. FAMILY HISTORY: Noncontributory. PAST SURGICAL HISTORY: None. PHYSICAL EXAMINATION: VITAL SIGNS: Temperature is 101.7, T-max was 101.7, T-current is 100.9, pulse is 104, respirations are 20, and blood pressure is 104/68. HEENT: Normocephalic and atraumatic. Sclerae mildly pale. NECK: Supple. No evidence of lymphadenopathy. CARDIOVASCULAR: Tachy. Regular rate. Plus S1 and S2. LUNGS: Decreased breath sounds bilaterally based on the supine exam. ABDOMEN: Soft. Bowel sounds are present. No rebound. No guarding. No peritoneal sign. EXTREMITIES: No cyanosis, no clubbing, and no edema. LABORATORY DATA: White count is 2.9, hemoglobin 10.4, hematocrit 29, and platelet count is 47,000. Sodium is 136, potassium 3.3, BUN is 19, creatinine is 0.8, glucose is 185, and ammonia is 80. ASSESSMENT AND PLAN: A 67-year-old male with hepatitis B cirrhosis complicated with thrombocytopenia, most probably has portal hypertension, most probably has varices. The patient is currently on propranolol. Most probably at one point had a variceal bleeding and that is why he is on propranolol. He is also currently on lactulose and Xifaxan for encephalopathy and his ammonia level was 80. Plan is to do an abdominal ultrasound for evaluation of the liver malignancy and also ascites and degree of cirrhosis. Continue on lactulose and Xifaxan. Continue on propranolol. Serum alpha-fetoprotein. The patient might benefit from an endoscopy for evaluation of varices, consider the patient is more stable and afebrile. The patient also had fever of 101.7 last night. Plan will be to continue on ceftriaxone. Order blood cultures, UA, urine cultures, and chest x-ray. We will follow. I want to thank, Dr. Charles Fontenot, for this kind referral. Jamarcus Floyd M.D. DR: YUN JOB#: [id number] CC: Charles Fontenot M.D.; Fax#: [phone]
--- NOTE | 2018-08-09 15:49 | Pulmonology Progress Note ---
Assessment/Plan Problems: (1) Acute encephalopathy (2) Hepatic cirrhosis (3) Hypoglycemia due to type 1 diabetes mellitus (4) UTI (urinary tract infection) (5) Thrombocytopenia (6) Anemia (7) Leukopenia (8) hepatitis (9) History of diabetes mellitus Assessment/Plan f/u ammonia level check cultures iv fluids lactulose blood smear pending feeling better Hepatitis panel pending Subjective ROS Limited/Unobtainable: No Constitutional: Reports: no symptoms HEENT: Repors: no symptoms Respiratory: Reports: no symptoms Allergies: Coded Allergies: No Known Allergies (Unverified , 08/08/18) Objective Last 24 Hour Vital Signs Date Time Temp Pulse Resp B/P (MAP) Pulse Ox O2 Delivery O2 Flow Rate FiO2 08/09/18 11:59 99.6 99 19 108/58 (75) 98 08/09/18 09:00 Room Air 08/09/18 08:49 90 112/58 08/09/18 08:49 112/58 08/09/18 08:00 99.4 90 18 112/58 (76) 98 08/09/18 05:30 100.9 08/09/18 04:00 101.7 104 20 104/68 (80) 98 08/09/18 00:00 98.5 108 20 132/64 (86) 97 08/08/18 22:17 113 118/63 08/08/18 21:00 Room Air 08/08/18 20:00 100.3 113 19 118/63 (81) 97 08/08/18 16:00 98.7 08/08/18 16:00 61 17 97 Intake and Output 08/08/18 08/09/18 19:00 07:00 Intake Total 360 ml Balance 360 ml Intake Oral 360 ml # Voids 4 General Appearance: cachetic HEENT: normocephalic, atraumatic Respiratory/Chest: chest wall non-tender, lungs clear Cardiovascular: normal peripheral pulses, normal rate Abdomen: normal bowel sounds, soft, non tender, no scars Extremities: no clubbing Skin: no rash Microbiology Date/Time Source Procedure Growth Status 08/08/18 04:50 Urine,Clean Catch Urine Culture - Preliminary Resulted 08/08/18 05:50 Rectum Received Laboratory Tests 08/09/18 08:00: White Blood Count 4.4#L, Red Blood Count 2.68L, Hemoglobin 8.9L, Hematocrit 26.1L, Mean Corpuscular Volume 97, Mean Corpuscular Hemoglobin 33.1H, Mean Corpuscular Hemoglobin Concent 34.1, Red Cell Distribution Width 13.1, Platelet Count 29L, Mean Platelet Volume 10.4H, Neutrophils (%) (Auto) , Lymphocytes (%) (Auto) , Monocytes (%) (Auto) , Eosinophils (%) (Auto) , Basophils (%) (Auto) , Differential Total Cells Counted 100, Neutrophils % (Manual) 83H, Lymphocytes % (Manual) 10L, Monocytes % (Manual) 4, Eosinophils % (Manual) 0, Basophils % ( Manual) 0, Band Neutrophils 3, Platelet Estimate DecreasedL, Platelet Morphology Normal, Polychromasia Occasional, Hypochromasia 1+, Erythrocyte Sedimentation Rate 23H, Reticulocyte Count 4.2H, Prothrombin Time 19.9H, Prothromb Time International Ratio 2.0H, Activated Partial Thromboplast Time 52H , Sodium Level 136, Potassium Level 7.0#*H, Chloride Level 112H, Carbon Dioxide Level 21, Anion Gap 3L, Blood Urea Nitrogen 21H, Creatinine 0.9, Estimat Glomerular Filtration Rate > 60, Glucose Level 225H, Calcium Level 6.6L, Phosphorus Level 1.9L, Magnesium Level 1.2L, Iron Level 39L, Total Iron Binding Capacity 169L, Percent Iron Saturation 23, Unsaturated Iron Binding 130, Total Bilirubin 3.2H, Direct Bilirubin 1.1H, Aspartate Amino Transf (AST/SGOT) 92H, Alanine Aminotransferase (ALT/SGPT) 98H, Alkaline Phosphatase 114, Ammonia 32, Lactate Dehydrogenase 322H, Total Protein 4.6L, Albumin 1.4L, Globulin 3.2, Albumin/Globulin Ratio 0.4L, Carcinoembryonic Antigen [Pending], Vitamin B12 Level 1804H, Folate 9.2 08/09/18 10:30: Potassium Level 4.6 Current Medications Medications (Trade) Dose Ordered Sig/Aubrey Route PRN Reason Start Time Stop Time Status Last Admin Dose Admin Acetaminophen (Tylenol) 650 mg Q6H PRN ORAL Mild Pain/Temp > 100.5 08/09/18 07:45 09/08/18 07:44 Ceftriaxone Sodium 1 gm/ Dextrose 55 ml @ 110 mls/hr Q24H IVPB 08/08/18 12:00 08/15/18 11:59 08/09/18 13:02 Dextrose (Dextrose 50%) 25 ml Q30M PRN IV Hypoglycemia 08/09/18 13:15 09/08/18 13:14 Dextrose (Dextrose 50%) 50 ml Q30M PRN IV Hypoglycemia 08/09/18 13:15 09/08/18 13:14 Fluconazole (Diflucan) 100 mg DAILY ORAL 08/08/18 16:00 08/15/18 15:59 08/09/18 08:49 Insulin Aspart (NovoLOG) BEFORE MEALS AND HS SUBQ 08/08/18 16:30 09/07/18 16:29 08/09/18 12:20 Insulin Aspart (NovoLOG) 5 units NOVOTIAC SUBQ 08/09/18 16:50 09/08/18 16:49 Insulin Detemir (Levemir) 15 units DAILY SUBQ 08/09/18 14:00 09/08/18 13:59 08/09/18 13:45 Isosorbide Dinitrate (Isordil) 30 mg DAILY ORAL 08/08/18 11:00 09/07/18 10:59 08/09/18 08:49 Lactulose (Cephulac) 30 gm THREE TIMES A DAY ORAL 08/08/18 13:00 09/07/18 12:59 08/09/18 13:02 Oxybutynin Chloride (Ditropan) 10 mg BEFORE BREAKFAST ORAL 08/09/18 06:30 09/08/18 06:29 08/09/18 06:27 Patient Own Medication (Patient's Own Med) 1 ea DAILY ORAL 08/09/18 09:00 09/08/18 08:59 08/09/18 08:51 Propranolol HCl (Inderal) 10 mg EVERY 12 HOURS ORAL 08/08/18 21:00 09/07/18 20:59 08/09/18 08:49 Rifaximin (Xifaxan) 550 mg EVERY 12 HOURS ORAL 08/08/18 21:00 08/15/18 20:59 08/09/18 08:49 Sodium Chloride 1,000 ml @ 50 mls/hr Q20H IV 08/09/18 15:00 09/08/18 14:59 08/09/18 15:10 Spironolactone (Aldactone) 50 mg DAILY ORAL 08/09/18 09:00 09/08/18 08:59 08/09/18 08:49 Tamsulosin HCl (Flomax) 0.4 mg BEDTIME ORAL 08/08/18 21:00 09/07/18 20:59 08/08/18 22:17 Macy Jasso MD Aug 09, 2018 15:49
[2018-08-09 16:00] VITALS: BP 122/60
[2018-08-09] MEDS ORDERED: LORazepam Inj 2mg/ml 1ml IV PRN ×2 (16:00)
--- NOTE | 2018-08-09 16:05 | NUR ---
CASE MANAGEMENT:REVIEW BIBA FROM [facility] CC: ALOC. HYPOGLYCEMIA GLUCOSE 27 SI: ANEMIA. LEUKOPENIA. UTI THROMBOCYTOPENIA. HYPOGLYCEMIA 98.5 60 22 100/53 100% ON RA WBC-2.9 PLT-47 IS: IV D50 GIVEN BY EMS 1L NS BOLUS IV ROCEPHIN URINE CX CXR : TO MED/SURG [facility]
--- NOTE | 2018-08-09 17:00 | NUR ---
NURSE NOTES: Patient is agitated, confused, and wandering around the unit. Patient became aggressive and grabbed [employer] and RN. Security called. Received new orders for Ativan IV for agitation. Will give medication as ordered. All safety measures provided. Will continue to monitor patient.
--- NOTE | 2018-08-09 18:56 | NUR ---
NURSE NOTES: Patient's daughter Krupa requested for Dr. Fontenot to call her to answer some questions she has about her father. She can be reached at
--- NOTE | 2018-08-09 19:20 | NUR ---
HAND-OFF: Report given to Brooklyn DUNCAN. Patient is stable.
--- NOTE | 2018-08-09 19:30 | NUR ---
NURSE NOTES: Received report from outgoing RN Gail. Pt in bed asleep. IV right hand 20g dry & intact. Call light in reach, bed in lowest position, side rails up x2. Will continue to monitor pt.
[2018-08-09 20:00] VITALS: BP 107/55
[2018-08-09] MEDS: Tamsulosin 0.4mg cap ORAL SCH ×2 (20:59→21:00)
--- NOTE | 2018-08-09 21:00 | NUR ---
NURSE NOTES: Pt asleep/ lethargic. Unable to give 2100 PO meds. Per day shift RN Gail, Risperidone 0.25mg given at 1713 and Ativan 0.5mg IV at 1618. VSS, no signs of distress, will continue to monitor.
[2018-08-10] VITALS: BP 116/55
[2018-08-10 04:00] VITALS: BP 113/58
[2018-08-10 06:29] LABS: HEMATOCRIT 28.1 % (42.0-52.0); HEMOGLOBIN 9.6 G/DL (14.2-18.0); MEAN CORPUSCULAR VOLUME 98 FL (80-99); PLATELET COUNT 31 K/UL (150-450); RED BLOOD COUNT 2.87 M/UL (4.70-6.10); RED CELL DISTRIBUTION WIDTH 13.5 % (11.6-14.8)
[2018-08-10] MEDS: NovoLOG Insulin Flexpen SUBQ SCH ×7 (06:30→21:33)
[2018-08-10 06:37] LABS: INR 1.7 (0.9-1.1)
[2018-08-10] MEDS: Oxybutynin 5mg tab ORAL SCH (06:53)
[2018-08-10 06:57] LABS: ALANINE AMINOTRANSFERASE 93 U/L (12-78); ALBUMIN 1.5 G/DL (3.4-5.0); ALBUMIN/GLOBULIN RATIO 0.4 (1.0-2.7); ALKALINE PHOSPHATASE 119 U/L (46-116); ANION GAP 3 mmol/L (5-15); ASPARTATE AMINO TRANSFERASE 73 U/L (15-37); BLOOD UREA NITROGEN 23 mg/dL (7-18); CALCIUM 7.7 MG/DL (8.5-10.1); CARBON DIOXIDE 26 MMOL/L (21-32); CHLORIDE 105 MMOL/L (98-107); CREATININE 0.9 MG/DL (0.55-1.30); POTASSIUM 4.7 MMOL/L (3.5-5.1); SODIUM 134 MMOL/L (136-145)
[2018-08-10 07:00] LABS: BILIRUBIN,DIRECT 1.1 MG/DL (0.0-0.3)
--- NOTE | 2018-08-10 07:08 | General Progress Note ---
Assessment/Plan Problem List: (1) Hepatic cirrhosis ICD Codes: K74.60 - Unspecified cirrhosis of liver SNOMED: 82566911 (2) History of diabetes mellitus ICD Codes: Z86.39 - Personal history of other endocrine, nutritional and metabolic disease SNOMED: 271934277 (3) Acute encephalopathy ICD Codes: G93.40 - Encephalopathy, unspecified SNOMED: 44355945, 915685910 (4) Hypoglycemia due to type 1 diabetes mellitus ICD Codes: E10.649 - Type 1 diabetes mellitus with hypoglycemia without coma SNOMED: 21201915073603, 70811386 (5) Thrombocytopenia ICD Codes: D69.6 - Thrombocytopenia, unspecified SNOMED: 320699304, 247666881 Assessment/Plan increase Levemir to 12 units bid increase Novolog to 8 units ac tid continue NISS Subjective ROS Limited/Unobtainable: Yes Allergies: Coded Allergies: No Known Allergies (Unverified , 08/08/18) Subjective events noted Objective Last 24 Hour Vital Signs Date Time Temp Pulse Resp B/P (MAP) Pulse Ox O2 Delivery O2 Flow Rate FiO2 08/10/18 04:00 97.2 77 19 113/58 (76) 97 08/10/18 00:00 98.2 80 18 116/55 (75) 97 08/09/18 21:00 Room Air 08/09/18 21:00 89 107/55 08/09/18 20:00 98.4 87 19 107/55 (72) 96 08/09/18 16:39 99.6 08/09/18 16:00 100.5 98 17 122/60 (80) 96 08/09/18 11:59 99.6 99 19 108/58 (75) 98 08/09/18 09:00 Room Air 08/09/18 08:49 90 112/58 08/09/18 08:49 112/58 08/09/18 08:00 99.4 90 18 112/58 (76) 98 Intake and Output 08/09/18 08/10/18 18:59 06:59 Intake Total 205 ml 490 ml Balance 205 ml 490 ml Intake Oral 240 ml IV Total 205 ml 250 ml # Voids 1 Laboratory Tests 08/09/18 08:00: White Blood Count 4.4#L, Red Blood Count 2.68L, Hemoglobin 8.9L, Hematocrit 26.1L, Mean Corpuscular Volume 97, Mean Corpuscular Hemoglobin 33.1H, Mean Corpuscular Hemoglobin Concent 34.1, Red Cell Distribution Width 13.1, Platelet Count 29L, Mean Platelet Volume 10.4H, Neutrophils (%) (Auto) , Lymphocytes (%) (Auto) , Monocytes (%) (Auto) , Eosinophils (%) (Auto) , Basophils (%) (Auto) , Differential Total Cells Counted 100, Neutrophils % (Manual) 83H, Lymphocytes % (Manual) 10L, Monocytes % (Manual) 4, Eosinophils % (Manual) 0, Basophils % ( Manual) 0, Band Neutrophils 3, Platelet Estimate DecreasedL, Platelet Morphology Normal, Polychromasia Occasional, Hypochromasia 1+, Erythrocyte Sedimentation Rate 23H, Reticulocyte Count 4.2H, Prothrombin Time 19.9H, Prothromb Time International Ratio 2.0H, Activated Partial Thromboplast Time 52H , Sodium Level 136, Potassium Level 7.0#*H, Chloride Level 112H, Carbon Dioxide Level 21, Anion Gap 3L, Blood Urea Nitrogen 21H, Creatinine 0.9, Estimat Glomerular Filtration Rate > 60, Glucose Level 225H, Calcium Level 6.6L, Phosphorus Level 1.9L, Magnesium Level 1.2L, Iron Level 39L, Total Iron Binding Capacity 169L, Percent Iron Saturation 23, Unsaturated Iron Binding 130, Total Bilirubin 3.2H, Direct Bilirubin 1.1H, Aspartate Amino Transf (AST/SGOT) 92H, Alanine Aminotransferase (ALT/SGPT) 98H, Alkaline Phosphatase 114, Ammonia 32, Lactate Dehydrogenase 322H, Total Protein 4.6L, Albumin 1.4L, Globulin 3.2, Albumin/Globulin Ratio 0.4L, Carcinoembryonic Antigen [Pending], Vitamin B12 Level 1804H, Folate 9.2 08/09/18 10:30: Potassium Level 4.6 08/10/18 05:10: White Blood Count 3.0L, Red Blood Count 2.87L, Hemoglobin 9.6L, Hematocrit 28.1L , Mean Corpuscular Volume 98, Mean Corpuscular Hemoglobin 33.5H, Mean Corpuscular Hemoglobin Concent 34.2, Red Cell Distribution Width 13.5, Platelet Count 31L, Mean Platelet Volume 8.9, Neutrophils (%) (Auto) , Lymphocytes (%) ( Auto) , Monocytes (%) (Auto) , Eosinophils (%) (Auto) , Basophils (%) (Auto) , Neutrophils % (Manual) [Pending], Lymphocytes % (Manual) [Pending], Platelet Estimate [Pending], Platelet Morphology [Pending], Prothrombin Time 17.4H, Prothromb Time International Ratio 1.7H, Sodium Level 134L, Potassium Level 4.7 , Chloride Level 105, Carbon Dioxide Level 26, Anion Gap 3L, Blood Urea Nitrogen 23H, Creatinine 0.9, Estimat Glomerular Filtration Rate > 60, Glucose Level 272H, Calcium Level 7.7L, Iron Level [Pending], Unsaturated Iron Binding [ Pending], Total Bilirubin 3.0H, Direct Bilirubin 1.1H, Aspartate Amino Transf ( AST/SGOT) 73H, Alanine Aminotransferase (ALT/SGPT) 93H, Alkaline Phosphatase 119H, Ammonia [Pending], Total Protein 5.2L, Albumin 1.5L, Globulin 3.7, Albumin /Globulin Ratio 0.4L, Folate [Pending], Alpha Fetoprotein [Pending] Height (Feet): 5 Height (Inches): 7.00 Weight (Pounds): 170 General Appearance: no apparent distress Neck: normal alignment Cardiovascular: normal rate Respiratory/Chest: lungs clear Abdomen: normal bowel sounds Pelvis: normal external exam Objective Current Medications Medications (Trade) Dose Ordered Sig/Aubrey Route PRN Reason Start Time Stop Time Status Last Admin Dose Admin Acetaminophen (Tylenol) 650 mg Q6H PRN ORAL Mild Pain/Temp > 100.5 08/09/18 07:45 09/08/18 07:44 08/09/18 16:09 Ceftriaxone Sodium 1 gm/ Dextrose 55 ml @ 110 mls/hr Q24H IVPB 08/08/18 12:00 08/15/18 11:59 08/09/18 13:02 Dextrose (Dextrose 50%) 25 ml Q30M PRN IV Hypoglycemia 08/09/18 13:15 09/08/18 13:14 Dextrose (Dextrose 50%) 50 ml Q30M PRN IV Hypoglycemia 08/09/18 13:15 09/08/18 13:14 Fluconazole (Diflucan) 100 mg DAILY ORAL 08/08/18 16:00 08/15/18 15:59 08/09/18 08:49 Insulin Aspart (NovoLOG) BEFORE MEALS AND HS SUBQ 08/08/18 16:30 09/07/18 16:29 08/10/18 06:56 Insulin Aspart (NovoLOG) 5 units NOVOTIAC SUBQ 08/09/18 16:50 09/08/18 16:49 Insulin Detemir (Levemir) 15 units DAILY SUBQ 08/09/18 14:00 09/08/18 13:59 08/09/18 13:45 Isosorbide Dinitrate (Isordil) 30 mg DAILY ORAL 08/08/18 11:00 09/07/18 10:59 08/09/18 08:49 Lactulose (Cephulac) 30 gm THREE TIMES A DAY ORAL 08/08/18 13:00 09/07/18 12:59 08/09/18 17:32 Lorazepam (Ativan 2mg/ml 1ml) 1 mg Q4H PRN IV For Anxiety 08/09/18 19:00 08/16/18 18:59 Oxybutynin Chloride (Ditropan) 10 mg BEFORE BREAKFAST ORAL 08/09/18 06:30 09/08/18 06:29 08/10/18 06:53 Patient Own Medication (Patient's Own Med) 1 ea DAILY ORAL 08/09/18 09:00 09/08/18 08:59 08/09/18 08:51 Propranolol HCl (Inderal) 10 mg EVERY 12 HOURS ORAL 08/08/18 21:00 09/07/18 20:59 08/09/18 08:49 Rifaximin (Xifaxan) 550 mg EVERY 12 HOURS ORAL 08/08/18 21:00 08/15/18 20:59 08/09/18 08:49 Sodium Chloride 1,000 ml @ 50 mls/hr Q20H IV 08/09/18 15:00 09/08/18 14:59 08/09/18 15:10 Spironolactone (Aldactone) 50 mg DAILY ORAL 08/09/18 09:00 09/08/18 08:59 08/09/18 08:49 Tamsulosin HCl (Flomax) 0.4 mg BEDTIME ORAL 08/08/18 21:00 09/07/18 20:59 08/08/18 22:17 Item Value Date Time Bedside Blood Glucose 298 mg/dl H 08/10/18 0656 Bedside Blood Glucose 360 mg/dl H 08/09/18 2101 Bedside Blood Glucose 355 mg/dl H 08/09/18 1733 Bedside Blood Glucose 292 mg/dl H 08/09/18 1345 Bedside Blood Glucose 268 mg/dl H 08/09/18 0630 Cedric Kellogg MD Aug 10, 2018 07:08
[2018-08-10 07:29] LABS: % IRON SATURATION 25 % (15-50); IRON 38 ug/dL (50-175); TOTAL IRON BINDING CAPACITY 151 ug/dL (250-450)
--- NOTE | 2018-08-10 07:30 | NUR ---
NURSE NOTES: Patient is in bed awake and confused. Patient denies pain at this time. Patient is stable, no s/s distress at this time. Patient is in bed in locked position and call light within reach. All needs met at this time. Will continue to monitor.
--- NOTE | 2018-08-10 07:34 | NUR ---
HAND-OFF: Report given to PERLA Reynolds. Pt is stable.
[2018-08-10 07:50] LABS: AMMONIA 56 umol/L (11-32)
[2018-08-10 08:00] VITALS: BP 120/65
[2018-08-10] MEDS: Lactulose 20gm/30ml UDC ORAL SCH ×3 (08:38→18:47)
[2018-08-10] MEDS: Fluconazole 100mg tab ORAL SCH (08:39)
[2018-08-10] MEDS: [UNRECOGNIZED DRUG - REMARK] ORAL SCH (08:39)
[2018-08-10] MEDS: Propranolol 10mg tab ORAL SCH ×2 (08:39→21:00)
[2018-08-10] MEDS: Spironolactone 50mg tab ORAL SCH (08:39)
[2018-08-10] MEDS: LORazepam Inj 2mg/ml 1ml IV PRN (08:41)
[2018-08-10] MEDS: Levemir Flexpen SUBQ SCH ×2 (09:00→18:47)
--- NOTE | 2018-08-10 10:28 | Consultation ---
History of Present Illness General Date patient seen: Aug 10, 2018 Chief Complaint: Altered Level of Consciousness Reason for Consultation: UTI Present Illness HPI Ms. Reilly is a 67 yo male with PMHx of DM, Hep B, Liver cerrhosis and BPH who [facility] for increaed confusion and and low bloos sugar. He had a fever to 102 on admit but no leukcocytosis. His UA was positive and he is growing yeast. Today he is awake and alert but still somewhat confused. He has no complaints and says that he feels well. No dysuria or hematuria ID was consulted for UTI PMHx/PSHx DM HLD Liver cirrhosis Hep B Portal hypertention BPH SocHx No E/T/D FamHx Not contributory Allergies: Coded Allergies: No Known Allergies (Unverified , 08/08/18) Medication History Scheduled Aspirin* (Aspir 81*), 81 MG ORAL DAILY, (Reported) Atorvastatin Calcium* (Atorvastatin Calcium*), 20 MG ORAL BEDTIME, (Reported) Furosemide* (Lasix*), 20 MG ORAL DAILY, (Reported) Insulin NPH Hum/Reg Insulin Hm (Novolin 70-30 Flexpen), 50 UNIT SQ QHS, ( Reported) Isosorbide Dinitrate* (Isordil*), 30 MG ORAL DAILY, (Reported) Lactulose (Lactulose*), 30 ML ORAL BID, (Reported) Oxybutynin Chloride (Oxybutynin Chloride), 10 MG ORAL DAILY, (Reported) Propranolol Hcl* (Inderal*), 10 MG ORAL BID, (Reported) Rifaximin* (Xifaxan*), 550 MG ORAL TWICE A DAY, (Reported) Spironolactone* (Spironolactone*), 50 MG ORAL DAILY, (Reported) Tamsulosin Hcl (Tamsulosin Hcl*), 0.4 MG ORAL BEDTIME, (Reported) Tenofovir Disoproxil Fumarate* (Viread*), 25 MG ORAL DAILY, (Reported) Miscellaneous Medications Insulin Lispro (Humalog), 0 SUBQ, (Reported) Insulin NPH Hum/Reg Insulin Hm (Novolin 70-30 Flexpen), 100 UNIT SQ, (Reported) Patient History Healthcare decision maker Resuscitation status Full Code Advanced Directive on File Review of Systems ROS Narrative 12 point ROS negative except as note in the HPI. Physical Exam Last 24 Hour Vital Signs Date Time Temp Pulse Resp B/P (MAP) Pulse Ox O2 Delivery O2 Flow Rate FiO2 08/10/18 09:00 120/65 08/10/18 09:00 Room Air 08/10/18 08:39 84 120/65 08/10/18 08:00 97.6 84 18 120/65 (83) 97 08/10/18 04:00 97.2 77 19 113/58 (76) 97 08/10/18 00:00 98.2 80 18 116/55 (75) 97 08/09/18 21:00 Room Air 08/09/18 21:00 89 107/55 08/09/18 20:00 98.4 87 19 107/55 (72) 96 08/09/18 16:39 99.6 08/09/18 16:00 100.5 98 17 122/60 (80) 96 08/09/18 11:59 99.6 99 19 108/58 (75) 98 Intake and Output 08/09/18 08/10/18 19:00 07:00 Intake Total 205 ml 840 ml Balance 205 ml 840 ml Intake Oral 240 ml IV Total 205 ml 600 ml # Voids 1 Laboratory Tests Test 08/09/18 10:30 08/10/18 05:10 Potassium Level 4.6 MMOL/L (3.5-5.1) 4.7 MMOL/L (3.5-5.1) White Blood Count 3.0 K/UL (4.8-10.8) L Red Blood Count 2.87 M/UL (4.70-6.10) L Hemoglobin 9.6 G/DL (14.2-18.0) L Hematocrit 28.1 % (42.0-52.0) L Mean Corpuscular Volume 98 FL (80-99) Mean Corpuscular Hemoglobin 33.5 PG (27.0-31.0) H Mean Corpuscular Hemoglobin Concent 34.2 G/DL (32.0-36.0) Red Cell Distribution Width 13.5 % (11.6-14.8) Platelet Count 31 K/UL (150-450) L Mean Platelet Volume 8.9 FL (6.5-10.1) Neutrophils (%) (Auto) % (45.0-75.0) Lymphocytes (%) (Auto) % (20.0-45.0) Monocytes (%) (Auto) % (1.0-10.0) Eosinophils (%) (Auto) % (0.0-3.0) Basophils (%) (Auto) % (0.0-2.0) Differential Total Cells Counted 100 Neutrophils % (Manual) 86 % (45-75) H Lymphocytes % (Manual) 9 % (20-45) L Monocytes % (Manual) 5 % (1-10) Eosinophils % (Manual) 0 % (0-3) Basophils % (Manual) 0 % (0-2) Band Neutrophils 0 % (0-8) Platelet Estimate Decreased L Platelet Morphology Normal Hypochromasia 1+ Prothrombin Time 17.4 SEC (9.30-11.50) H Prothromb Time International Ratio 1.7 (0.9-1.1) H Sodium Level 134 MMOL/L (136-145) L Chloride Level 105 MMOL/L (98-107) Carbon Dioxide Level 26 MMOL/L (21-32) Anion Gap 3 mmol/L (5-15) L Blood Urea Nitrogen 23 mg/dL (7-18) H Creatinine 0.9 MG/DL (0.55-1.30) Estimat Glomerular Filtration Rate > 60 mL/min (>60) Glucose Level 272 MG/DL (74-106) H Calcium Level 7.7 MG/DL (8.5-10.1) L Iron Level 38 ug/dL (50-175) L Total Iron Binding Capacity 151 ug/dL (250-450) L Percent Iron Saturation 25 % (15-50) Unsaturated Iron Binding 113 ug/dL (112-346) Total Bilirubin 3.0 MG/DL (0.2-1.0) H Direct Bilirubin 1.1 MG/DL (0.0-0.3) H Aspartate Amino Transf (AST/SGOT) 73 U/L (15-37) H Alanine Aminotransferase (ALT/SGPT) 93 U/L (12-78) H Alkaline Phosphatase 119 U/L (46-116) H Ammonia 56 umol/L (11-32) H Total Protein 5.2 G/DL (6.4-8.2) L Albumin 1.5 G/DL (3.4-5.0) L Globulin 3.7 g/dL Albumin/Globulin Ratio 0.4 (1.0-2.7) L Alpha Fetoprotein Pending Folate 12.2 NG/ML (8.6-58.9) Height (Feet): 5 Height (Inches): 7.00 Weight (Pounds): 170 Medications Current Medications Medications (Trade) Dose Ordered Sig/Aubrey Route PRN Reason Start Time Stop Time Status Last Admin Dose Admin Acetaminophen (Tylenol) 650 mg Q6H PRN ORAL Mild Pain/Temp > 100.5 08/09/18 07:45 09/08/18 07:44 08/09/18 16:09 Ceftriaxone Sodium 1 gm/ Dextrose 55 ml @ 110 mls/hr Q24H IVPB 08/08/18 12:00 08/15/18 11:59 08/09/18 13:02 Dextrose (Dextrose 50%) 25 ml Q30M PRN IV Hypoglycemia 08/09/18 13:15 09/08/18 13:14 Dextrose (Dextrose 50%) 50 ml Q30M PRN IV Hypoglycemia 08/09/18 13:15 09/08/18 13:14 Fluconazole (Diflucan) 100 mg DAILY ORAL 08/08/18 16:00 08/15/18 15:59 08/10/18 08:39 Insulin Aspart (NovoLOG) BEFORE MEALS AND HS SUBQ 08/08/18 16:30 09/07/18 16:29 08/10/18 06:56 Insulin Aspart (NovoLOG) 8 units NOVOTIAC SUBQ 08/10/18 11:50 09/08/18 16:49 Insulin Detemir (Levemir) 12 units BID SUBQ 08/10/18 09:00 09/08/18 13:59 Isosorbide Dinitrate (Isordil) 30 mg DAILY ORAL 08/08/18 11:00 09/07/18 10:59 08/09/18 08:49 Lactulose (Cephulac) 30 gm THREE TIMES A DAY ORAL 08/08/18 13:00 09/07/18 12:59 08/10/18 08:38 Lorazepam (Ativan 2mg/ml 1ml) 1 mg Q4H PRN IV For Anxiety 08/09/18 19:00 08/16/18 18:59 08/10/18 08:41 Oxybutynin Chloride (Ditropan) 10 mg BEFORE BREAKFAST ORAL 08/09/18 06:30 09/08/18 06:29 08/10/18 06:53 Patient Own Medication (Patient's Own Med) 1 ea DAILY ORAL 08/09/18 09:00 09/08/18 08:59 08/10/18 08:39 Propranolol HCl (Inderal) 10 mg EVERY 12 HOURS ORAL 08/08/18 21:00 09/07/18 20:59 08/10/18 08:39 Rifaximin (Xifaxan) 550 mg EVERY 12 HOURS ORAL 08/08/18 21:00 08/15/18 20:59 08/10/18 08:39 Sodium Chloride 1,000 ml @ 50 mls/hr Q20H IV 08/09/18 15:00 09/08/18 14:59 08/09/18 15:10 Spironolactone (Aldactone) 50 mg DAILY ORAL 08/09/18 09:00 09/08/18 08:59 08/10/18 08:39 Tamsulosin HCl (Flomax) 0.4 mg BEDTIME ORAL 08/08/18 21:00 09/07/18 20:59 08/08/18 22:17 Objective Narrative Gen: NAD, well appearing, alert on RA but confused HEENT: NCAT, MMM, EOMI, PERRL, No Oral lesion, no scleral icterus NECK: full range of motion, supple, no meningismus, No LAD, No JVD LUNGS: CTAB, No W/C, No Accessory muscle use CARDS: RRR, S1, S2, No M/R/G, ABD: Soft, NT, Distended, No R/G, + BS, No HSM, No Masses : Deferred Ext: C/C/E, Pulses 2+ B/L (DP, Rad): Right hip tender NEURO: A/O x 2, Strength and Sensation Grossly intact, Mild tremor PSYCH: Mood/affect normal SKIN: Warm/dry, No rashes Assessment/Plan Assessment/Plan 67 yo male with PMHx of DM, Hep B, Liver cerrhosis and BPH who [facility] for increaed confusion and and low bloos sugar. UTI UA positive, confusion decreased glucose UCx 08/08 - Yeast Fever 102 - resolved No leukocytosis Hypogylcememia - Resolved Confusion - Not at baseline per family Ascites No pain or leukocytosis so SBP less likely DM HLD Liver cirrhosis Hep B Portal hypertention BPH PLAN - Continue Ceftriaxone #2 - (UTI? less likely SBP) - Will stop if no infection evident - Continue Flucoanzole 100mg PO Qday for 7 days ( End date 08/15/18) - Consider paracentesis - Monitor CBC and temps Thank you for this consult. We will continue to follow the patient during this hospitalization. Raji Thomas MD Aug 10, 2018 10:28
--- NOTE | 2018-08-10 10:50 | GI Progress Note ---
Assessment/Plan Problems: (1) Acute encephalopathy ICD Codes: G93.40 - Encephalopathy, unspecified SNOMED: 33964707, 432026168 (2) Hepatic cirrhosis ICD Codes: K74.60 - Unspecified cirrhosis of liver SNOMED: 46859975 (3) Anemia ICD Codes: D64.9 - Anemia, unspecified SNOMED: 302015963 Qualifiers: Qualified Codes: D64.9 - Anemia, unspecified (4) Cirrhosis of liver ICD Codes: K74.60 - Unspecified cirrhosis of liver SNOMED: 75825480 (5) Hepatitis B ICD Codes: B19.10 - Unspecified viral hepatitis B without hepatic coma SNOMED: 94117306 (6) Portal hypertension ICD Codes: K76.6 - Portal hypertension SNOMED: 66083867 (7) hepatitis Status: stable Status Narrative Discussed with Dr. Floyd Assessment/Plan Follow-up abdominal ultrasound continue propranolol Continue lactulose and rifaximin Follow-up alpha-fetoprotein As needed transfusions PPI Patient may benefit from endoscopy for evaluation of varices when more stable Follow-up labs The patient was seen and examined at bedside and all new and available data was reviewed in the patients chart. I agree with the above findings, impression and plan. (Patient seen earlier today. Signature stamp does not reflect patient encounter time.). - Jamarcus Floyd MD Subjective Subjective Limited Objective Last 24 Hour Vital Signs Date Time Temp Pulse Resp B/P (MAP) Pulse Ox O2 Delivery O2 Flow Rate FiO2 08/10/18 09:00 120/65 08/10/18 09:00 Room Air 08/10/18 08:39 84 120/65 08/10/18 08:00 97.6 84 18 120/65 (83) 97 08/10/18 04:00 97.2 77 19 113/58 (76) 97 08/10/18 00:00 98.2 80 18 116/55 (75) 97 08/09/18 21:00 Room Air 08/09/18 21:00 89 107/55 08/09/18 20:00 98.4 87 19 107/55 (72) 96 08/09/18 16:39 99.6 08/09/18 16:00 100.5 98 17 122/60 (80) 96 08/09/18 11:59 99.6 99 19 108/58 (75) 98 Intake and Output 1/6/19 1/7/19 19:00 07:00 Intake Total 205 ml 840 ml Balance 205 ml 840 ml Intake Oral 240 ml IV Total 205 ml 600 ml # Voids 1 Laboratory Tests Test 08/10/18 05:10 White Blood Count 3.0 K/UL (4.8-10.8) L Red Blood Count 2.87 M/UL (4.70-6.10) L Hemoglobin 9.6 G/DL (14.2-18.0) L Hematocrit 28.1 % (42.0-52.0) L Mean Corpuscular Volume 98 FL (80-99) Mean Corpuscular Hemoglobin 33.5 PG (27.0-31.0) H Mean Corpuscular Hemoglobin Concent 34.2 G/DL (32.0-36.0) Red Cell Distribution Width 13.5 % (11.6-14.8) Platelet Count 31 K/UL (150-450) L Mean Platelet Volume 8.9 FL (6.5-10.1) Neutrophils (%) (Auto) % (45.0-75.0) Lymphocytes (%) (Auto) % (20.0-45.0) Monocytes (%) (Auto) % (1.0-10.0) Eosinophils (%) (Auto) % (0.0-3.0) Basophils (%) (Auto) % (0.0-2.0) Differential Total Cells Counted 100 Neutrophils % (Manual) 86 % (45-75) H Lymphocytes % (Manual) 9 % (20-45) L Monocytes % (Manual) 5 % (1-10) Eosinophils % (Manual) 0 % (0-3) Basophils % (Manual) 0 % (0-2) Band Neutrophils 0 % (0-8) Platelet Estimate Decreased L Platelet Morphology Normal Hypochromasia 1+ Prothrombin Time 17.4 SEC (9.30-11.50) H Prothromb Time International Ratio 1.7 (0.9-1.1) H Sodium Level 134 MMOL/L (136-145) L Potassium Level 4.7 MMOL/L (3.5-5.1) Chloride Level 105 MMOL/L (98-107) Carbon Dioxide Level 26 MMOL/L (21-32) Anion Gap 3 mmol/L (5-15) L Blood Urea Nitrogen 23 mg/dL (7-18) H Creatinine 0.9 MG/DL (0.55-1.30) Estimat Glomerular Filtration Rate > 60 mL/min (>60) Glucose Level 272 MG/DL (74-106) H Calcium Level 7.7 MG/DL (8.5-10.1) L Iron Level 38 ug/dL (50-175) L Total Iron Binding Capacity 151 ug/dL (250-450) L Percent Iron Saturation 25 % (15-50) Unsaturated Iron Binding 113 ug/dL (112-346) Total Bilirubin 3.0 MG/DL (0.2-1.0) H Direct Bilirubin 1.1 MG/DL (0.0-0.3) H Aspartate Amino Transf (AST/SGOT) 73 U/L (15-37) H Alanine Aminotransferase (ALT/SGPT) 93 U/L (12-78) H Alkaline Phosphatase 119 U/L (46-116) H Ammonia 56 umol/L (11-32) H Total Protein 5.2 G/DL (6.4-8.2) L Albumin 1.5 G/DL (3.4-5.0) L Globulin 3.7 g/dL Albumin/Globulin Ratio 0.4 (1.0-2.7) L Alpha Fetoprotein Pending Folate 12.2 NG/ML (8.6-58.9) Height (Feet): 5 Height (Inches): 7.00 Weight (Pounds): 170 General Appearance: WD/WN, no apparent distress, alert, thin Cardiovascular: normal rate Respiratory/Chest: normal breath sounds, no respiratory distress Abdominal Exam: normal bowel sounds, non tender, soft Extremities: non-tender Sujata Jackson [employer] OPER[employer] Aug 10, 2018 10:50
[2018-08-10 12:00] VITALS: BP 129/74
--- NOTE | 2018-08-10 12:32 | Pulmonology Progress Note ---
Assessment/Plan Problems: (1) Acute encephalopathy (2) Hepatic cirrhosis (3) Hypoglycemia due to type 1 diabetes mellitus (4) UTI (urinary tract infection) (5) Thrombocytopenia (6) Anemia (7) Leukopenia (8) hepatitis (9) History of diabetes mellitus Assessment/Plan all reviewed no new complains f/u ammonia level check cultures iv fluids lactulose blood smear pending feeling better Hepatitis panel pending Subjective ROS Limited/Unobtainable: No Interval Events: doing better, eating well Allergies: Coded Allergies: No Known Allergies (Unverified , 08/08/18) Objective Last 24 Hour Vital Signs Date Time Temp Pulse Resp B/P (MAP) Pulse Ox O2 Delivery O2 Flow Rate FiO2 08/10/18 09:00 120/65 08/10/18 09:00 Room Air 08/10/18 08:39 84 120/65 08/10/18 08:00 97.6 84 18 120/65 (83) 97 08/10/18 04:00 97.2 77 19 113/58 (76) 97 08/10/18 00:00 98.2 80 18 116/55 (75) 97 08/09/18 21:00 Room Air 08/09/18 21:00 89 107/55 08/09/18 20:00 98.4 87 19 107/55 (72) 96 08/09/18 16:39 99.6 08/09/18 16:00 100.5 98 17 122/60 (80) 96 Intake and Output 08/09/18 08/10/18 19:00 07:00 Intake Total 205 ml 840 ml Balance 205 ml 840 ml Intake Oral 240 ml IV Total 205 ml 600 ml # Voids 1 General Appearance: WD/WN HEENT: normocephalic Respiratory/Chest: chest wall non-tender, lungs clear Cardiovascular: normal peripheral pulses, normal rate Abdomen: normal bowel sounds, soft, non tender Genitourinary: normal external genitalia Extremities: no clubbing Skin: no rash Microbiology Date/Time Source Procedure Growth Status 08/08/18 05:50 Nasal Nares MRSA Culture - Final NO METHICILLIN RESISTANT STAPH AUREUS... Complete 08/08/18 04:50 Urine,Clean Catch Urine Culture - Preliminary YEAST Resulted 08/08/18 05:50 Rectum VRE Culture - Final Enterococcus Faecalis - Vre Complete Laboratory Tests 08/10/18 05:10: White Blood Count 3.0L, Red Blood Count 2.87L, Hemoglobin 9.6L, Hematocrit 28.1L , Mean Corpuscular Volume 98, Mean Corpuscular Hemoglobin 33.5H, Mean Corpuscular Hemoglobin Concent 34.2, Red Cell Distribution Width 13.5, Platelet Count 31L, Mean Platelet Volume 8.9, Neutrophils (%) (Auto) , Lymphocytes (%) ( Auto) , Monocytes (%) (Auto) , Eosinophils (%) (Auto) , Basophils (%) (Auto) , Differential Total Cells Counted 100, Neutrophils % (Manual) 86H, Lymphocytes % (Manual) 9L, Monocytes % (Manual) 5, Eosinophils % (Manual) 0, Basophils % ( Manual) 0, Band Neutrophils 0, Platelet Estimate DecreasedL, Platelet Morphology Normal, Hypochromasia 1+, Prothrombin Time 17.4H, Prothromb Time International Ratio 1.7H, Sodium Level 134L, Potassium Level 4.7, Chloride Level 105, Carbon Dioxide Level 26, Anion Gap 3L, Blood Urea Nitrogen 23H, Creatinine 0.9, Estimat Glomerular Filtration Rate > 60, Glucose Level 272H, Calcium Level 7.7L, Iron Level 38L, Total Iron Binding Capacity 151L, Percent Iron Saturation 25, Unsaturated Iron Binding 113, Total Bilirubin 3.0H, Direct Bilirubin 1.1H, Aspartate Amino Transf (AST/SGOT) 73H, Alanine Aminotransferase (ALT/SGPT) 93H, Alkaline Phosphatase 119H, Ammonia 56H, Total Protein 5.2L, Albumin 1.5L, Globulin 3.7, Albumin/Globulin Ratio 0.4L, Alpha Fetoprotein [ Pending], Folate 12.2 Current Medications Medications (Trade) Dose Ordered Sig/Aubrey Route PRN Reason Start Time Stop Time Status Last Admin Dose Admin Acetaminophen (Tylenol) 650 mg Q6H PRN ORAL Mild Pain/Temp > 100.5 08/09/18 07:45 09/08/18 07:44 08/09/18 16:09 Ceftriaxone Sodium 1 gm/ Dextrose 55 ml @ 110 mls/hr Q24H IVPB 08/08/18 12:00 08/15/18 11:59 08/09/18 13:02 Dextrose (Dextrose 50%) 25 ml Q30M PRN IV Hypoglycemia 08/09/18 13:15 09/08/18 13:14 Dextrose (Dextrose 50%) 50 ml Q30M PRN IV Hypoglycemia 08/09/18 13:15 09/08/18 13:14 Fluconazole (Diflucan) 100 mg DAILY ORAL 08/08/18 16:00 08/15/18 15:59 08/10/18 08:39 Insulin Aspart (NovoLOG) BEFORE MEALS AND HS SUBQ 08/08/18 16:30 09/07/18 16:29 08/10/18 12:18 Insulin Aspart (NovoLOG) 8 units NOVOTIAC SUBQ 08/10/18 11:50 09/08/18 16:49 08/10/18 12:19 Insulin Detemir (Levemir) 12 units BID SUBQ 08/10/18 09:00 09/08/18 13:59 Isosorbide Dinitrate (Isordil) 30 mg DAILY ORAL 08/08/18 11:00 09/07/18 10:59 08/09/18 08:49 Lactulose (Cephulac) 30 gm THREE TIMES A DAY ORAL 08/08/18 13:00 09/07/18 12:59 08/10/18 08:38 Lorazepam (Ativan 2mg/ml 1ml) 1 mg Q4H PRN IV For Anxiety 08/09/18 19:00 08/16/18 18:59 08/10/18 08:41 Oxybutynin Chloride (Ditropan) 10 mg BEFORE BREAKFAST ORAL 08/09/18 06:30 09/08/18 06:29 08/10/18 06:53 Patient Own Medication (Patient's Own Med) 1 ea DAILY ORAL 08/09/18 09:00 09/08/18 08:59 08/10/18 08:39 Phytonadione 1 mg/ Dextrose 55.5 ml @ 222 mls/hr ONCE IVPB 08/10/18 13:00 08/10/18 14:00 Propranolol HCl (Inderal) 10 mg EVERY 12 HOURS ORAL 08/08/18 21:00 09/07/18 20:59 08/10/18 08:39 Rifaximin (Xifaxan) 550 mg EVERY 12 HOURS ORAL 08/08/18 21:00 08/15/18 20:59 08/10/18 08:39 Sodium Chloride 1,000 ml @ 50 mls/hr Q20H IV 08/09/18 15:00 09/08/18 14:59 08/09/18 15:10 Spironolactone (Aldactone) 50 mg DAILY ORAL 08/09/18 09:00 09/08/18 08:59 08/10/18 08:39 Tamsulosin HCl (Flomax) 0.4 mg BEDTIME ORAL 08/08/18 21:00 09/07/18 20:59 08/08/18 22:17 Macy Jasso MD Aug 10, 2018 12:32
[2018-08-10] MEDS: cefTRIAXone 1 GM in D5W 55 ML IVPB SCH (12:38)
[2018-08-10] MEDS ORDERED: Phytonadione 1 MG in D5W 55 ML IVPB SCH ×2 (13:00→15:00)
--- NOTE | 2018-08-10 13:00 | NUR ---
NURSE NOTES: Patient transferred to as ordered. Patient is stable, no s/s distress noted. Skin intact. IV patent, fluids running as ordered. Patient denies pain or discomfort while transferring, tolerated well. All belongings with patient, family notified (Krupa, daughter). patient is in bed in locked position, all safety measures provided and call light within reach. Report given to Kelli DUNCAN.
--- NOTE | 2018-08-10 13:06 | Consultation ---
History of Present Illness General Date patient seen: Aug 09, 2018 Chief Complaint: Altered Level of Consciousness Reason for Consultation: UTI Present Illness HPI 67-year-old male, who presents with chief complaint of low blood sugar. The patient is a resident of [facility] and im well familiar with her. The patient became increasingly confused and unable to provide meaningful hx. the pt is disorganized and agitated. the pt is unable to provide any meaningful hx. Allergies: Coded Allergies: No Known Allergies (Unverified , 08/08/18) Medication History Scheduled Aspirin* (Aspir 81*), 81 MG ORAL DAILY, (Reported) Atorvastatin Calcium* (Atorvastatin Calcium*), 20 MG ORAL BEDTIME, (Reported) Furosemide* (Lasix*), 20 MG ORAL DAILY, (Reported) Insulin NPH Hum/Reg Insulin Hm (Novolin 70-30 Flexpen), 50 UNIT SQ QHS, ( Reported) Isosorbide Dinitrate* (Isordil*), 30 MG ORAL DAILY, (Reported) Lactulose (Lactulose*), 30 ML ORAL BID, (Reported) Oxybutynin Chloride (Oxybutynin Chloride), 10 MG ORAL DAILY, (Reported) Propranolol Hcl* (Inderal*), 10 MG ORAL BID, (Reported) Rifaximin* (Xifaxan*), 550 MG ORAL TWICE A DAY, (Reported) Spironolactone* (Spironolactone*), 50 MG ORAL DAILY, (Reported) Tamsulosin Hcl (Tamsulosin Hcl*), 0.4 MG ORAL BEDTIME, (Reported) Tenofovir Disoproxil Fumarate* (Viread*), 25 MG ORAL DAILY, (Reported) Miscellaneous Medications Insulin Lispro (Humalog), 0 SUBQ, (Reported) Insulin NPH Hum/Reg Insulin Hm (Novolin 70-30 Flexpen), 100 UNIT SQ, (Reported) Patient History Limited by: medical condition History Provided By: Medical Record, PMD Healthcare decision maker Resuscitation status Full Code Advanced Directive on File Past Medical/Surgical History Past Medical/Surgical History: (1) hepatitis (2) Portal hypertension (3) Cirrhosis of liver (4) Hepatitis B (5) Diabetes mellitus type II, uncontrolled (6) BPH (benign prostatic hyperplasia) (7) Fever (8) Anemia (9) Leukopenia (10) Thrombocytopenia (11) UTI (urinary tract infection) (12) Hypoglycemia due to type 1 diabetes mellitus (13) Hepatic cirrhosis (14) History of diabetes mellitus (15) Acute encephalopathy Review of Systems Psychiatric: Reports: prior hx, anxiety, depressed feelings, emotional problems , hallucinations Physical Exam General Appearance: alert, confused, agitated Neurologic: depressed affect Last 24 Hour Vital Signs Date Time Temp Pulse Resp B/P (MAP) Pulse Ox O2 Delivery O2 Flow Rate FiO2 08/10/18 09:00 120/65 08/10/18 09:00 Room Air 08/10/18 08:39 84 120/65 08/10/18 08:00 97.6 84 18 120/65 (83) 97 08/10/18 04:00 97.2 77 19 113/58 (76) 97 08/10/18 00:00 98.2 80 18 116/55 (75) 97 08/09/18 21:00 Room Air 08/09/18 21:00 89 107/55 08/09/18 20:00 98.4 87 19 107/55 (72) 96 08/09/18 16:39 99.6 08/09/18 16:00 100.5 98 17 122/60 (80) 96 Intake and Output 08/09/18 08/10/18 19:00 07:00 Intake Total 205 ml 840 ml Balance 205 ml 840 ml Intake Oral 240 ml IV Total 205 ml 600 ml # Voids 1 Laboratory Tests Test 08/10/18 05:10 White Blood Count 3.0 K/UL (4.8-10.8) L Red Blood Count 2.87 M/UL (4.70-6.10) L Hemoglobin 9.6 G/DL (14.2-18.0) L Hematocrit 28.1 % (42.0-52.0) L Mean Corpuscular Volume 98 FL (80-99) Mean Corpuscular Hemoglobin 33.5 PG (27.0-31.0) H Mean Corpuscular Hemoglobin Concent 34.2 G/DL (32.0-36.0) Red Cell Distribution Width 13.5 % (11.6-14.8) Platelet Count 31 K/UL (150-450) L Mean Platelet Volume 8.9 FL (6.5-10.1) Neutrophils (%) (Auto) % (45.0-75.0) Lymphocytes (%) (Auto) % (20.0-45.0) Monocytes (%) (Auto) % (1.0-10.0) Eosinophils (%) (Auto) % (0.0-3.0) Basophils (%) (Auto) % (0.0-2.0) Differential Total Cells Counted 100 Neutrophils % (Manual) 86 % (45-75) H Lymphocytes % (Manual) 9 % (20-45) L Monocytes % (Manual) 5 % (1-10) Eosinophils % (Manual) 0 % (0-3) Basophils % (Manual) 0 % (0-2) Band Neutrophils 0 % (0-8) Platelet Estimate Decreased L Platelet Morphology Normal Hypochromasia 1+ Prothrombin Time 17.4 SEC (9.30-11.50) H Prothromb Time International Ratio 1.7 (0.9-1.1) H Sodium Level 134 MMOL/L (136-145) L Potassium Level 4.7 MMOL/L (3.5-5.1) Chloride Level 105 MMOL/L (98-107) Carbon Dioxide Level 26 MMOL/L (21-32) Anion Gap 3 mmol/L (5-15) L Blood Urea Nitrogen 23 mg/dL (7-18) H Creatinine 0.9 MG/DL (0.55-1.30) Estimat Glomerular Filtration Rate > 60 mL/min (>60) Glucose Level 272 MG/DL (74-106) H Calcium Level 7.7 MG/DL (8.5-10.1) L Iron Level 38 ug/dL (50-175) L Total Iron Binding Capacity 151 ug/dL (250-450) L Percent Iron Saturation 25 % (15-50) Unsaturated Iron Binding 113 ug/dL (112-346) Total Bilirubin 3.0 MG/DL (0.2-1.0) H Direct Bilirubin 1.1 MG/DL (0.0-0.3) H Aspartate Amino Transf (AST/SGOT) 73 U/L (15-37) H Alanine Aminotransferase (ALT/SGPT) 93 U/L (12-78) H Alkaline Phosphatase 119 U/L (46-116) H Ammonia 56 umol/L (11-32) H Total Protein 5.2 G/DL (6.4-8.2) L Albumin 1.5 G/DL (3.4-5.0) L Globulin 3.7 g/dL Albumin/Globulin Ratio 0.4 (1.0-2.7) L Alpha Fetoprotein Pending Folate 12.2 NG/ML (8.6-58.9) Height (Feet): 5 Height (Inches): 7.00 Weight (Pounds): 170 Medications Current Medications Medications (Trade) Dose Ordered Sig/Aubrey Route PRN Reason Start Time Stop Time Status Last Admin Dose Admin Acetaminophen (Tylenol) 650 mg Q6H PRN ORAL Mild Pain/Temp > 100.5 08/09/18 07:45 09/08/18 07:44 08/09/18 16:09 Ceftriaxone Sodium 1 gm/ Dextrose 55 ml @ 110 mls/hr Q24H IVPB 08/08/18 12:00 08/15/18 11:59 08/10/18 12:38 Dextrose (Dextrose 50%) 25 ml Q30M PRN IV Hypoglycemia 08/09/18 13:15 09/08/18 13:14 Dextrose (Dextrose 50%) 50 ml Q30M PRN IV Hypoglycemia 08/09/18 13:15 09/08/18 13:14 Fluconazole (Diflucan) 100 mg DAILY ORAL 08/08/18 16:00 08/15/18 15:59 08/10/18 08:39 Insulin Aspart (NovoLOG) BEFORE MEALS AND HS SUBQ 08/08/18 16:30 09/07/18 16:29 08/10/18 12:18 Insulin Aspart (NovoLOG) 8 units NOVOTIAC SUBQ 08/10/18 11:50 09/08/18 16:49 08/10/18 12:19 Insulin Detemir (Levemir) 12 units BID SUBQ 08/10/18 09:00 09/08/18 13:59 Isosorbide Dinitrate (Isordil) 30 mg DAILY ORAL 08/08/18 11:00 09/07/18 10:59 08/09/18 08:49 Lactulose (Cephulac) 30 gm THREE TIMES A DAY ORAL 08/08/18 13:00 09/07/18 12:59 08/10/18 08:38 Lorazepam (Ativan 2mg/ml 1ml) 1 mg Q4H PRN IV For Anxiety 08/09/18 19:00 08/16/18 18:59 08/10/18 08:41 Oxybutynin Chloride (Ditropan) 10 mg BEFORE BREAKFAST ORAL 08/09/18 06:30 09/08/18 06:29 08/10/18 06:53 Patient Own Medication (Patient's Own Med) 1 ea DAILY ORAL 08/09/18 09:00 09/08/18 08:59 08/10/18 08:39 Phytonadione 1 mg/ Dextrose 55.5 ml @ 222 mls/hr ONCE IVPB 08/10/18 13:00 08/10/18 14:00 Propranolol HCl (Inderal) 10 mg EVERY 12 HOURS ORAL 08/08/18 21:00 09/07/18 20:59 08/10/18 08:39 Rifaximin (Xifaxan) 550 mg EVERY 12 HOURS ORAL 08/08/18 21:00 08/15/18 20:59 08/10/18 08:39 Sodium Chloride 1,000 ml @ 50 mls/hr Q20H IV 08/09/18 15:00 09/08/18 14:59 08/09/18 15:10 Spironolactone (Aldactone) 50 mg DAILY ORAL 08/09/18 09:00 09/08/18 08:59 08/10/18 08:39 Tamsulosin HCl (Flomax) 0.4 mg BEDTIME ORAL 08/08/18 21:00 09/07/18 20:59 08/08/18 22:17 Assessment/Plan Problem List: (1) Acute encephalopathy ICD Codes: G93.40 - Encephalopathy, unspecified SNOMED: 08698511, [id number] Assessment/Plan risperdal .5mg po qhs the pt lacks capacity to make decisions/ Luis Jackson MD Aug 10, 2018 13:06
--- NOTE | 2018-08-10 14:01 | Diagnostic Imaging Report ---
Indication: Abdominal pain Technique: Allison-scale and duplex images of the upper abdomen were obtained Comparison: none Findings: Exam is limited due to patient restlessness and body habitus Gallbladder is unremarkable, without stones, wall thickening, nor pericholecystic fluid. Sonographic Nicholson's sign is negative. Common bile duct measures 5 mm in diameter. No intrahepatic biliary ductal dilatation. Liver demonstrates increased echogenicity with coarsening. The surface is nodular. There is a small cyst within the left hepatic lobe. Unusual mixed echogenicity structure is seen anterior and medial to the right hepatic lobe. This equivocally demonstrates peristalsis. Portal vein and hepatic veins are patent. Pancreas is unremarkable. The spleen is enlarged, measuring 14 20 cm long axis dimension. Left kidney measures 11.3 cm in length. Right kidney measures 10.5 cm length. Both kidneys demonstrate normal echogenicity. There is no hydronephrosis. No focal abnormality . Non-aneurysmal abdominal aorta . There is trace ascites present. The splenic vein is somewhat prominent small. It is also unusually tortuous and there are questionably varices within the splenic hilum. Possible small varices are seen within the bronson hepatis. Impression: Evidence of hepatic cirrhosis, with hepatic surface nodularity and coarsened echogenicity Evidence of portal hypertension, with trace ascites, enlarged splenic vein, and possible bronson hepatis, splenic hilar varices, and splenomegaly Unusual structure anteromedial to the right hepatic lobe. Suspect that this represents a markedly stool-filled hepatic flexure of the colon, as there is equivocally some peristalsis within. However, true mass lesion not completely excludable, and CT should be considered for better characterization Somewhat technically limited exam, as described Negative for gallstones or dilated ducts
[2018-08-10 16:00] VITALS: BP 109/69
--- NOTE | 2018-08-10 18:21 | Internal Med Progress Note ---
Subjective Date of Service: Aug 10, 2018 Physician Name Salty Bailey Attending Physician Charles Fontenot MD Current Medications Medications (Trade) Dose Ordered Sig/Aubrey Route PRN Reason Start Time Stop Time Status Last Admin Dose Admin Acetaminophen (Tylenol) 650 mg Q6H PRN ORAL Mild Pain/Temp > 100.5 08/09/18 07:45 09/08/18 07:44 08/09/18 16:09 Ceftriaxone Sodium 1 gm/ Dextrose 55 ml @ 110 mls/hr Q24H IVPB 08/08/18 12:00 08/15/18 11:59 08/10/18 12:38 Dextrose (Dextrose 50%) 25 ml Q30M PRN IV Hypoglycemia 08/09/18 13:15 09/08/18 13:14 Dextrose (Dextrose 50%) 50 ml Q30M PRN IV Hypoglycemia 08/09/18 13:15 09/08/18 13:14 Fluconazole (Diflucan) 100 mg DAILY ORAL 08/08/18 16:00 08/15/18 15:59 08/10/18 08:39 Insulin Aspart (NovoLOG) BEFORE MEALS AND HS SUBQ 08/08/18 16:30 09/07/18 16:29 08/10/18 17:34 Insulin Aspart (NovoLOG) 8 units NOVOTIAC SUBQ 08/10/18 11:50 09/08/18 16:49 08/10/18 17:35 Insulin Detemir (Levemir) 12 units BID SUBQ 08/10/18 09:00 09/08/18 13:59 Isosorbide Dinitrate (Isordil) 30 mg DAILY ORAL 08/08/18 11:00 09/07/18 10:59 08/09/18 08:49 Lactulose (Cephulac) 30 gm THREE TIMES A DAY ORAL 08/08/18 13:00 09/07/18 12:59 08/10/18 14:11 Lorazepam (Ativan 2mg/ml 1ml) 1 mg Q4H PRN IV For Anxiety 08/09/18 19:00 08/16/18 18:59 08/10/18 08:41 Oxybutynin Chloride (Ditropan) 10 mg BEFORE BREAKFAST ORAL 08/09/18 06:30 09/08/18 06:29 08/10/18 06:53 Patient Own Medication (Patient's Own Med) 1 ea DAILY ORAL 08/09/18 09:00 09/08/18 08:59 08/10/18 08:39 Propranolol HCl (Inderal) 10 mg EVERY 12 HOURS ORAL 08/08/18 21:00 09/07/18 20:59 08/10/18 08:39 Rifaximin (Xifaxan) 550 mg EVERY 12 HOURS ORAL 08/08/18 21:00 08/15/18 20:59 08/10/18 08:39 Risperidone (RisperDAL) 0.5 mg BEDTIME ORAL 08/10/18 21:00 09/09/18 20:59 Sodium Chloride 1,000 ml @ 50 mls/hr Q20H IV 08/09/18 15:00 09/08/18 14:59 08/09/18 15:10 Spironolactone (Aldactone) 50 mg DAILY ORAL 08/09/18 09:00 09/08/18 08:59 08/10/18 08:39 Tamsulosin HCl (Flomax) 0.4 mg BEDTIME ORAL 08/08/18 21:00 09/07/18 20:59 08/08/18 22:17 Allergies: Coded Allergies: No Known Allergies (Unverified , 08/08/18) Subjective 67 YO M admitted with hypoglycemia. Now UTI. Febrile overnight. Cover for Int Med-Dr Fontenot. Objective Last Vital Signs Date Time Temp Pulse Resp B/P (MAP) Pulse Ox O2 Delivery O2 Flow Rate FiO2 08/10/18 12:00 98.4 81 18 129/74 (92) 98 08/10/18 09:00 Room Air 08/08/18 07:23 2.0 Laboratory Tests Test 08/10/18 05:10 White Blood Count 3.0 K/UL (4.8-10.8) L Red Blood Count 2.87 M/UL (4.70-6.10) L Hemoglobin 9.6 G/DL (14.2-18.0) L Hematocrit 28.1 % (42.0-52.0) L Mean Corpuscular Volume 98 FL (80-99) Mean Corpuscular Hemoglobin 33.5 PG (27.0-31.0) H Mean Corpuscular Hemoglobin Concent 34.2 G/DL (32.0-36.0) Red Cell Distribution Width 13.5 % (11.6-14.8) Platelet Count 31 K/UL (150-450) L Mean Platelet Volume 8.9 FL (6.5-10.1) Neutrophils (%) (Auto) % (45.0-75.0) Lymphocytes (%) (Auto) % (20.0-45.0) Monocytes (%) (Auto) % (1.0-10.0) Eosinophils (%) (Auto) % (0.0-3.0) Basophils (%) (Auto) % (0.0-2.0) Differential Total Cells Counted 100 Neutrophils % (Manual) 86 % (45-75) H Lymphocytes % (Manual) 9 % (20-45) L Monocytes % (Manual) 5 % (1-10) Eosinophils % (Manual) 0 % (0-3) Basophils % (Manual) 0 % (0-2) Band Neutrophils 0 % (0-8) Platelet Estimate Decreased L Platelet Morphology Normal Hypochromasia 1+ Prothrombin Time 17.4 SEC (9.30-11.50) H Prothromb Time International Ratio 1.7 (0.9-1.1) H Sodium Level 134 MMOL/L (136-145) L Potassium Level 4.7 MMOL/L (3.5-5.1) Chloride Level 105 MMOL/L (98-107) Carbon Dioxide Level 26 MMOL/L (21-32) Anion Gap 3 mmol/L (5-15) L Blood Urea Nitrogen 23 mg/dL (7-18) H Creatinine 0.9 MG/DL (0.55-1.30) Estimat Glomerular Filtration Rate > 60 mL/min (>60) Glucose Level 272 MG/DL (74-106) H Calcium Level 7.7 MG/DL (8.5-10.1) L Iron Level 38 ug/dL (50-175) L Total Iron Binding Capacity 151 ug/dL (250-450) L Percent Iron Saturation 25 % (15-50) Unsaturated Iron Binding 113 ug/dL (112-346) Total Bilirubin 3.0 MG/DL (0.2-1.0) H Direct Bilirubin 1.1 MG/DL (0.0-0.3) H Aspartate Amino Transf (AST/SGOT) 73 U/L (15-37) H Alanine Aminotransferase (ALT/SGPT) 93 U/L (12-78) H Alkaline Phosphatase 119 U/L (46-116) H Ammonia 56 umol/L (11-32) H Total Protein 5.2 G/DL (6.4-8.2) L Albumin 1.5 G/DL (3.4-5.0) L Globulin 3.7 g/dL Albumin/Globulin Ratio 0.4 (1.0-2.7) L Alpha Fetoprotein Pending Folate 12.2 NG/ML (8.6-58.9) Microbiology Date/Time Source Procedure Growth Status 08/08/18 05:50 Nasal Nares MRSA Culture - Final NO METHICILLIN RESISTANT STAPH AUREUS... Complete 08/08/18 04:50 Urine,Clean Catch Urine Culture - Preliminary YEAST Resulted 08/08/18 05:50 Rectum VRE Culture - Final Enterococcus Faecalis - Vre Complete Intake and Output 08/09/18 08/10/18 19:00 07:00 Intake Total 205 ml 840 ml Balance 205 ml 840 ml Intake Oral 240 ml IV Total 205 ml 600 ml # Voids 1 Assessment/Plan Problem List: (1) Diabetes mellitus type II, uncontrolled Assessment & Plan: [id number]. Continue levemir and novolog sliding sclae per endocrinology (2) Hepatitis B (3) Cirrhosis of liver (4) Portal hypertension (5) BPH (benign prostatic hyperplasia) Assessment & Plan: Continue flomax (6) Hypoglycemia due to type 1 diabetes mellitus Assessment & Plan: See endocrinology note. (7) UTI (urinary tract infection) Assessment & Plan: Yeast-start fluconazole. Continue ceftriaxone. (8) Fever Assessment & Plan: Continue ceftriaxone. Await blood culture results. Status: not improved Salty Bailey MD Aug 10, 2018 18:21
--- NOTE | 2018-08-10 19:30 | NUR ---
NURSE NOTES: Received patient in bed, awake and alert, No acute distress noted, No c/o pain or any comfort noted, IV patient and fluid running as ordered, instructed how to use call light when need assistance, Call light and need within reach, Will continue to monitor.
[2018-08-10 20:00] VITALS: BP 107/64
[2018-08-10] MEDS: Tamsulosin 0.4mg cap ORAL SCH (21:29)
--- NOTE | 2018-08-10 21:30 | NUR ---
NURSE NOTES: Noted BS 236 for 9PM Novolog sliding scale with 6 units coverage, Patient is going to be NPO midnight for EGD on 08/11/18 next morning, Called Dr. Kellogg and left message regarding patient's condition. Received call back from Dr. Kellogg with order to give 4units at this time, done.
[2018-08-11] VITALS (10 sets, daily range): BP systolic 105–121; BP diastolic 61–74
[2018-08-11] MEDS: NovoLOG Insulin Flexpen SUBQ SCH ×7 (06:29→21:46)
[2018-08-11] MEDS: Oxybutynin 5mg tab ORAL SCH (06:29)
[2018-08-11] MEDS ORDERED: Levemir Flexpen SUBQ ONE (06:30)
[2018-08-11] MEDS: Levemir Flexpen SUBQ SCH ×2 (06:32→17:24)
--- NOTE | 2018-08-11 07:03 | General Progress Note ---
Assessment/Plan Problem List: (1) Hepatic cirrhosis ICD Codes: K74.60 - Unspecified cirrhosis of liver SNOMED: 11602638 (2) History of diabetes mellitus ICD Codes: Z86.39 - Personal history of other endocrine, nutritional and metabolic disease SNOMED: 378069844 (3) Acute encephalopathy ICD Codes: G93.40 - Encephalopathy, unspecified SNOMED: 12502229, 496569117 (4) Hypoglycemia due to type 1 diabetes mellitus ICD Codes: E10.649 - Type 1 diabetes mellitus with hypoglycemia without coma SNOMED: 25745229399621, 33223051 (5) Thrombocytopenia ICD Codes: D69.6 - Thrombocytopenia, unspecified SNOMED: 794128236, 196186960 Assessment/Plan Levemir 6 units and Novolog 6 units one dose of each now after diet resumed: - resume Levemir 12 units bid - resume Novolog 8 units ac tid - continue NISS Subjective ROS Limited/Unobtainable: Yes Allergies: Coded Allergies: No Known Allergies (Unverified , 08/08/18) Subjective events noted NPO for EGD - scheduled around noon today Objective Last 24 Hour Vital Signs Date Time Temp Pulse Resp B/P (MAP) Pulse Ox O2 Delivery O2 Flow Rate FiO2 08/11/18 04:00 97.7 80 18 106/66 (79) 96 08/11/18 00:00 97.2 80 18 121/70 (87) 98 08/10/18 21:00 95 107/64 08/10/18 21:00 Room Air 08/10/18 20:00 97.3 95 18 107/64 (78) 98 08/10/18 16:00 98.1 67 18 109/69 (82) 96 08/10/18 12:00 98.4 81 18 129/74 (92) 98 08/10/18 09:00 120/65 08/10/18 09:00 Room Air 08/10/18 08:39 84 120/65 08/10/18 08:00 97.6 84 18 120/65 (83) 97 Intake and Output 08/10/18 08/11/18 18:59 06:59 Intake Total 460 ml 50 ml Balance 460 ml 50 ml Intake Oral 360 ml IV Total 100 ml 50 ml # Voids 2 2 # Bowel Movements 1 Height (Feet): 5 Height (Inches): 5.00 Weight (Pounds): 128 General Appearance: no apparent distress Neck: normal alignment Cardiovascular: normal rate Respiratory/Chest: lungs clear Abdomen: normal bowel sounds Objective Current Medications Medications (Trade) Dose Ordered Sig/Aubrey Route PRN Reason Start Time Stop Time Status Last Admin Dose Admin Acetaminophen (Tylenol) 650 mg Q6H PRN ORAL Mild Pain/Temp > 100.5 08/09/18 07:45 09/08/18 07:44 08/09/18 16:09 Ceftriaxone Sodium 1 gm/ Dextrose 55 ml @ 110 mls/hr Q24H IVPB 08/08/18 12:00 08/15/18 11:59 08/10/18 12:38 Dextrose (Dextrose 50%) 25 ml Q30M PRN IV Hypoglycemia 08/09/18 13:15 09/08/18 13:14 Dextrose (Dextrose 50%) 50 ml Q30M PRN IV Hypoglycemia 08/09/18 13:15 09/08/18 13:14 Fluconazole (Diflucan) 100 mg DAILY ORAL 08/11/18 09:00 08/18/18 08:59 Insulin Aspart (NovoLOG) BEFORE MEALS AND HS SUBQ 08/08/18 16:30 09/07/18 16:29 08/11/18 06:33 Insulin Aspart (NovoLOG) 8 units NOVOTIAC SUBQ 08/10/18 11:50 09/08/18 16:49 08/10/18 17:35 Insulin Detemir (Levemir) 12 units BID SUBQ 08/10/18 09:00 09/08/18 13:59 08/11/18 06:32 Isosorbide Dinitrate (Isordil) 30 mg DAILY ORAL 08/08/18 11:00 09/07/18 10:59 08/09/18 08:49 Lactulose (Cephulac) 30 gm THREE TIMES A DAY ORAL 08/08/18 13:00 09/07/18 12:59 08/10/18 18:47 Lorazepam (Ativan 2mg/ml 1ml) 1 mg Q4H PRN IV For Anxiety 08/09/18 19:00 08/16/18 18:59 08/10/18 08:41 Oxybutynin Chloride (Ditropan) 10 mg BEFORE BREAKFAST ORAL 08/09/18 06:30 09/08/18 06:29 08/10/18 06:53 Patient Own Medication (Patient's Own Med) 1 ea DAILY ORAL 08/09/18 09:00 09/08/18 08:59 08/10/18 08:39 Propranolol HCl (Inderal) 10 mg EVERY 12 HOURS ORAL 08/08/18 21:00 09/07/18 20:59 08/10/18 08:39 Rifaximin (Xifaxan) 550 mg EVERY 12 HOURS ORAL 08/08/18 21:00 08/15/18 20:59 08/10/18 21:29 Risperidone (RisperDAL) 0.5 mg BEDTIME ORAL 08/10/18 21:00 09/09/18 20:59 08/10/18 21:28 Sodium Chloride 1,000 ml @ 50 mls/hr Q20H IV 08/09/18 15:00 09/08/18 14:59 08/11/18 03:18 Spironolactone (Aldactone) 50 mg DAILY ORAL 08/09/18 09:00 09/08/18 08:59 08/10/18 08:39 Tamsulosin HCl (Flomax) 0.4 mg BEDTIME ORAL 08/08/18 21:00 09/07/18 20:59 08/10/18 21:29 Item Value Date Time Bedside Blood Glucose 285 mg/dl H 08/11/18 0633 Bedside Blood Glucose 236 mg/dl H 08/10/18 2133 Bedside Blood Glucose 331 mg/dl H 08/10/18 1847 Bedside Blood Glucose 235 mg/dl H 08/10/18 1219 Bedside Blood Glucose 298 mg/dl H 08/10/18 0900 Bedside Blood Glucose 298 mg/dl H 08/10/18 0656 Cedric Kellogg MD Aug 11, 2018 07:03
--- NOTE | 2018-08-11 07:13 | NUR ---
HAND-OFF: Report given to PERLA Lopez.
[2018-08-11 08:28] LABS: HEMATOCRIT 33.3 % (42.0-52.0); HEMOGLOBIN 11.7 G/DL (14.2-18.0); MEAN CORPUSCULAR VOLUME 97 FL (80-99); PLATELET COUNT 40 K/UL (150-450); RED BLOOD COUNT 3.44 M/UL (4.70-6.10); RED CELL DISTRIBUTION WIDTH 13.1 % (11.6-14.8); WHITE BLOOD COUNT 3.3 K/UL (4.8-10.8)
[2018-08-11] MEDS: Fluconazole 100mg tab ORAL SCH (08:37)
[2018-08-11] MEDS: [UNRECOGNIZED DRUG - REMARK] ORAL SCH (08:37)
[2018-08-11] MEDS: Lactulose 20gm/30ml UDC ORAL SCH ×3 (08:37→17:23)
[2018-08-11] MEDS: Spironolactone 50mg tab ORAL SCH (08:37)
[2018-08-11] MEDS: Propranolol 10mg tab ORAL SCH ×2 (08:39→20:58)
[2018-08-11 08:45] LABS: INR 1.5 (0.9-1.1)
[2018-08-11 08:57] LABS: PHOSPHORUS 2.6 MG/DL (2.5-4.9)
[2018-08-11 09:09] LABS: ALANINE AMINOTRANSFERASE 93 U/L (12-78); ALBUMIN 1.6 G/DL (3.4-5.0); ALBUMIN/GLOBULIN RATIO 0.4 (1.0-2.7); ALKALINE PHOSPHATASE 140 U/L (46-116); ANION GAP 4 mmol/L (5-15); ASPARTATE AMINO TRANSFERASE 79 U/L (15-37); BILIRUBIN,TOTAL 2.9 MG/DL (0.2-1.0); BLOOD UREA NITROGEN 13 mg/dL (7-18); CALCIUM 7.5 MG/DL (8.5-10.1); CARBON DIOXIDE 27 MMOL/L (21-32); CHLORIDE 104 MMOL/L (98-107); CREATININE 0.9 MG/DL (0.55-1.30); POTASSIUM 3.7 MMOL/L (3.5-5.1); SODIUM 135 MMOL/L (136-145)
[2018-08-11 09:13] LABS: BILIRUBIN,DIRECT 1.1 MG/DL (0.0-0.3)
--- NOTE | 2018-08-11 10:33 | Anethesia Preoperative Eval ---
Anesthesia Pre-op PMH/ROS General Date of Evaluation: Aug 11, 2018 Time of Evaluation: 10:30 Anesthesiologist: Felipe ASA Score: ASA 3 Mallampati Score Class I : Soft palate, uvula, fauces, pillars visible Class II: Soft palate, uvula, fauces visible Class III: Soft palate, base of uvula visible Class IV: Only hard plate visible Mallampati Classification: Class III Surgeon: Mariel Diagnosis: Abdominal pain Surgical Procedure: EGD Anesthesia History: none Family History: no anesthesia problems Allergies: Coded Allergies: No Known Allergies (Unverified , 08/08/18) Medications: see eMAR Patient NPO?: Yes Past Medical History Cardiovascular: Reports: HTN; Denies: CAD, CO, valve dz, arrhythmia, other Pulmonary: Denies: asthma, COPD, ALETHEA, other Gastrointestinal/Genitourinary: Reports: GERD, other - liver cirrosis; Denies: CRI, ESRD Neurologic/Psychiatric: Reports: dementia, other - hepatic encephalopathy; Denies: CVA, depression/anxiety, TIA Endocrine: Denies: DM, hypothyroidism, steroids, other HEENT: Denies: cataract (L), cataract (R), glaucoma, [place] (L), [place] (R), other Hematology/Immune: Reports: anemia - mild; Denies: DVT, bleeding disorder, other Musculoskeletal/Integumentary: Denies: OA, RA, DJD, DDD, edema, other Other: other - malnourished PMH Narrative: as above PSxH Narrative: see H&P Anesthesia Pre-op Phys. Exam Physician Exam Last Vital Signs Date Time Temp Pulse Resp B/P (MAP) Pulse Ox O2 Delivery O2 Flow Rate FiO2 08/11/18 08:39 91 112/66 08/11/18 08:00 97.4 16 98 08/10/18 21:00 Room Air 08/08/18 07:23 2.0 Constitutional: NAD Neurologic: other - unable to obtaine Cardiovascular: RRR, no M/R/G Respiratory: CTA Gastrointestinal: S/NT/ND Airway Exam Mallampati Score: Class III MO: limited Neck: stiff ROM: limited Teeth: missing Dentures: no upper, no lower Anesthesia Pre-op A/P Labs Hematology Test 08/11/18 07:40 White Blood Count 3.3 K/UL (4.8-10.8) L Red Blood Count 3.44 M/UL (4.70-6.10) L Hemoglobin 11.7 G/DL (14.2-18.0) L Hematocrit 33.3 % (42.0-52.0) L Mean Corpuscular Volume 97 FL (80-99) Mean Corpuscular Hemoglobin 33.9 PG (27.0-31.0) H Mean Corpuscular Hemoglobin Concent 35.0 G/DL (32.0-36.0) Red Cell Distribution Width 13.1 % (11.6-14.8) Platelet Count 40 K/UL (150-450) L Mean Platelet Volume 7.3 FL (6.5-10.1) Neutrophils (%) (Auto) % (45.0-75.0) Lymphocytes (%) (Auto) % (20.0-45.0) Monocytes (%) (Auto) % (1.0-10.0) Eosinophils (%) (Auto) % (0.0-3.0) Basophils (%) (Auto) % (0.0-2.0) Neutrophils % (Manual) Pending Lymphocytes % (Manual) Pending Platelet Estimate Pending Platelet Morphology Pending Erythrocyte Sedimentation Rate 36 MM/HR (0-20) H Coagulation Test 08/11/18 07:40 Prothrombin Time 15.7 SEC (9.30-11.50) H Prothromb Time International Ratio 1.5 (0.9-1.1) H Activated Partial Thromboplast Time 45 SEC (23-33) H Chemistry Test 08/11/18 07:40 Sodium Level 135 MMOL/L (136-145) L Potassium Level 3.7 MMOL/L (3.5-5.1) Chloride Level 104 MMOL/L (98-107) Carbon Dioxide Level 27 MMOL/L (21-32) Anion Gap 4 mmol/L (5-15) L Blood Urea Nitrogen 13 mg/dL (7-18) Creatinine 0.9 MG/DL (0.55-1.30) Estimat Glomerular Filtration Rate > 60 mL/min (>60) Glucose Level 220 MG/DL (74-106) H Calcium Level 7.5 MG/DL (8.5-10.1) L Phosphorus Level 2.6 MG/DL (2.5-4.9) Magnesium Level 1.6 MG/DL (1.8-2.4) L Total Bilirubin 2.9 MG/DL (0.2-1.0) H Direct Bilirubin 1.1 MG/DL (0.0-0.3) H Aspartate Amino Transf (AST/SGOT) 79 U/L (15-37) H Alanine Aminotransferase (ALT/SGPT) 93 U/L (12-78) H Alkaline Phosphatase 140 U/L (46-116) H C-Reactive Protein, Quantitative 2.3 mg/dL (0.00-0.90) H Total Protein 5.5 G/DL (6.4-8.2) L Albumin 1.6 G/DL (3.4-5.0) L Globulin 3.9 g/dL Albumin/Globulin Ratio 0.4 (1.0-2.7) L Amylase Level 42 U/L (25-115) Lipase 323 U/L (73-393) Risk Assessment & Plan Assessment: ASA 3 Plan: MAC Status Change Before Surgery: No Pre-Antibiotics Drug: none Hemal Wang MD Aug 11, 2018 10:33
[2018-08-11] MEDS ORDERED: LR 1000ml 1,000 ML IVLG SCH (10:34)
--- NOTE | 2018-08-11 10:37 | Infectious Diseases Prog Note ---
Assessment/Plan Assessment/Plan 67 yo male with PMHx of DM, Hep B, Liver cerrhosis and BPH who was sent to the ED from his longterm for increaed confusion and and low bloos sugar. UTI UA positive, confusion decreased glucose UCx 08/08 - Yeast Fever 102 - resolved No leukocytosis Hypogylcememia - Resolved Confusion - Not at baseline per family Ascites No pain or leukocytosis so SBP less likely US 08/09/18 - Evidence of hepatic cirrhosis, with hepatic surface nodularity and coarsened echogenicity, portal hypertension, with trace ascites, enlarged splenic vein, and possible bronson hepatis, splenic hilar varices, and splenomegaly, Unusual structure anteromedial to the right hepatic lobe. Stool-filled hepatic flexure of the colon. However, true mass lesion not completely excludable, and CT should be considered for better characterization DM HLD Liver cirrhosis Hep B Portal hypertention BPH PLAN - Continue Ceftriaxone #10/08 - (UTI? less likely SBP) - Will stop if no infection evident - Continue Flucoanzole 100mg PO Qday for 7 days ( End date 08/15/18) - Consider paracentesis - Monitor CBC and temps We will continue to follow the patient during this hospitalization. Subjective Allergies: Coded Allergies: No Known Allergies (Unverified , 08/08/18) Subjective Aferbile No leukocytosis Objective Vital Signs Last 24 Hour Vital Signs Date Time Temp Pulse Resp B/P (MAP) Pulse Ox O2 Delivery O2 Flow Rate FiO2 08/11/18 08:39 91 112/66 08/11/18 08:39 112/66 08/11/18 08:00 97.4 91 16 112/66 (81) 98 08/11/18 04:00 97.7 80 18 106/66 (79) 96 08/11/18 00:00 97.2 80 18 121/70 (87) 98 08/10/18 21:00 95 107/64 08/10/18 21:00 Room Air 08/10/18 20:00 97.3 95 18 107/64 (78) 98 08/10/18 16:00 98.1 67 18 109/69 (82) 96 08/10/18 12:00 98.4 81 18 129/74 (92) 98 Height (Feet): 5 Height (Inches): 5.00 Weight (Pounds): 128 Objective Gen: NAD, well appearing, alert on RA HEENT: NCAT, MMM, EOMI LUNGS: CTAB, No W CARDS: RRR, S1, S2 ABD: Soft, NT, Distended, + BS Ext: C/C/E, Pulses 2+ B/L (DP, Rad): Right hip tender NEURO: A/O x 2, Strength and Sensation Grossly intact Microbiology Date/Time Source Procedure Growth Status 08/09/18 08:15 Blood Blood Culture - Preliminary NO GROWTH AFTER 24 HOURS Resulted 08/09/18 08:00 Blood Blood Culture - Preliminary NO GROWTH AFTER 24 HOURS Resulted Laboratory Tests Test 08/11/18 07:40 White Blood Count 3.3 K/UL (4.8-10.8) L Red Blood Count 3.44 M/UL (4.70-6.10) L Hemoglobin 11.7 G/DL (14.2-18.0) L Hematocrit 33.3 % (42.0-52.0) L Mean Corpuscular Volume 97 FL (80-99) Mean Corpuscular Hemoglobin 33.9 PG (27.0-31.0) H Mean Corpuscular Hemoglobin Concent 35.0 G/DL (32.0-36.0) Red Cell Distribution Width 13.1 % (11.6-14.8) Platelet Count 40 K/UL (150-450) L Mean Platelet Volume 7.3 FL (6.5-10.1) Neutrophils (%) (Auto) % (45.0-75.0) Lymphocytes (%) (Auto) % (20.0-45.0) Monocytes (%) (Auto) % (1.0-10.0) Eosinophils (%) (Auto) % (0.0-3.0) Basophils (%) (Auto) % (0.0-2.0) Neutrophils % (Manual) Pending Lymphocytes % (Manual) Pending Platelet Estimate Pending Platelet Morphology Pending Erythrocyte Sedimentation Rate 36 MM/HR (0-20) H Prothrombin Time 15.7 SEC (9.30-11.50) H Prothromb Time International Ratio 1.5 (0.9-1.1) H Activated Partial Thromboplast Time 45 SEC (23-33) H Sodium Level 135 MMOL/L (136-145) L Potassium Level 3.7 MMOL/L (3.5-5.1) Chloride Level 104 MMOL/L (98-107) Carbon Dioxide Level 27 MMOL/L (21-32) Anion Gap 4 mmol/L (5-15) L Blood Urea Nitrogen 13 mg/dL (7-18) Creatinine 0.9 MG/DL (0.55-1.30) Estimat Glomerular Filtration Rate > 60 mL/min (>60) Glucose Level 220 MG/DL (74-106) H Calcium Level 7.5 MG/DL (8.5-10.1) L Phosphorus Level 2.6 MG/DL (2.5-4.9) Magnesium Level 1.6 MG/DL (1.8-2.4) L Total Bilirubin 2.9 MG/DL (0.2-1.0) H Direct Bilirubin 1.1 MG/DL (0.0-0.3) H Aspartate Amino Transf (AST/SGOT) 79 U/L (15-37) H Alanine Aminotransferase (ALT/SGPT) 93 U/L (12-78) H Alkaline Phosphatase 140 U/L (46-116) H C-Reactive Protein, Quantitative 2.3 mg/dL (0.00-0.90) H Total Protein 5.5 G/DL (6.4-8.2) L Albumin 1.6 G/DL (3.4-5.0) L Globulin 3.9 g/dL Albumin/Globulin Ratio 0.4 (1.0-2.7) L Amylase Level 42 U/L (25-115) Lipase 323 U/L (73-393) Current Medications Medications (Trade) Dose Ordered Sig/Aubrey Route PRN Reason Start Time Stop Time Status Last Admin Dose Admin Acetaminophen (Tylenol) 650 mg Q6H PRN ORAL Mild Pain/Temp > 100.5 08/09/18 07:45 09/08/18 07:44 08/09/18 16:09 Ceftriaxone Sodium 1 gm/ Dextrose 55 ml @ 110 mls/hr Q24H IVPB 08/08/18 12:00 08/15/18 11:59 08/10/18 12:38 Dextrose (Dextrose 50%) 25 ml Q30M PRN IV Hypoglycemia 08/09/18 13:15 09/08/18 13:14 Dextrose (Dextrose 50%) 50 ml Q30M PRN IV Hypoglycemia 08/09/18 13:15 09/08/18 13:14 Fluconazole (Diflucan) 100 mg DAILY ORAL 08/11/18 09:00 08/18/18 08:59 08/11/18 08:37 Insulin Aspart (NovoLOG) BEFORE MEALS AND HS SUBQ 08/08/18 16:30 09/07/18 16:29 08/11/18 06:33 Insulin Aspart (NovoLOG) 8 units NOVOTIAC SUBQ 08/10/18 11:50 09/08/18 16:49 08/10/18 17:35 Insulin Detemir (Levemir) 12 units BID SUBQ 08/10/18 09:00 09/08/18 13:59 08/11/18 06:32 Isosorbide Dinitrate (Isordil) 30 mg DAILY ORAL 08/08/18 11:00 09/07/18 10:59 08/09/18 08:49 Lactulose (Cephulac) 30 gm THREE TIMES A DAY ORAL 08/08/18 13:00 09/07/18 12:59 08/11/18 08:37 Lorazepam (Ativan 2mg/ml 1ml) 1 mg Q4H PRN IV For Anxiety 08/09/18 19:00 08/16/18 18:59 08/10/18 08:41 Oxybutynin Chloride (Ditropan) 10 mg BEFORE BREAKFAST ORAL 08/09/18 06:30 09/08/18 06:29 08/10/18 06:53 Patient Own Medication (Patient's Own Med) 1 ea DAILY ORAL 08/09/18 09:00 09/08/18 08:59 08/11/18 08:37 Propranolol HCl (Inderal) 10 mg EVERY 12 HOURS ORAL 08/08/18 21:00 09/07/18 20:59 08/10/18 08:39 Rifaximin (Xifaxan) 550 mg EVERY 12 HOURS ORAL 08/08/18 21:00 08/15/18 20:59 08/11/18 08:37 Risperidone (RisperDAL) 0.5 mg BEDTIME ORAL 08/10/18 21:00 09/09/18 20:59 08/10/18 21:28 Sodium Chloride 1,000 ml @ 50 mls/hr Q20H IV 08/09/18 15:00 09/08/18 14:59 08/11/18 03:18 Spironolactone (Aldactone) 50 mg DAILY ORAL 08/09/18 09:00 09/08/18 08:59 08/11/18 08:37 Tamsulosin HCl (Flomax) 0.4 mg BEDTIME ORAL 08/08/18 21:00 09/07/18 20:59 08/10/18 21:29 Raji Thomas MD Aug 11, 2018 10:37
[2018-08-11] MEDS ORDERED: fentaNYL 100 mcg/2 mL IV PRN (10:45)
[2018-08-11] MEDS ORDERED: DiphenhydrAMINE 50mg/ml Inj IVP PRN (10:45)
--- NOTE | 2018-08-11 11:56 | General Progress Note ---
Assessment/Plan Problem List: (1) Acute encephalopathy ICD Codes: G93.40 - Encephalopathy, unspecified SNOMED: 74341449, [id number] Status: stable Assessment/Plan risperdal .5mg po qhs the pt lacks capacity to make decisions/ Subjective Neurologic/Psychiatric: Reports: anxiety, depressed, emotional problems Allergies: Coded Allergies: No Known Allergies (Unverified , 08/08/18) Subjective the pt cont to be confused and disorganized Objective Last 24 Hour Vital Signs Date Time Temp Pulse Resp B/P (MAP) Pulse Ox O2 Delivery O2 Flow Rate FiO2 08/11/18 09:00 Room Air 08/11/18 08:39 91 112/66 08/11/18 08:39 112/66 08/11/18 08:00 97.4 91 16 112/66 (81) 98 08/11/18 04:00 97.7 80 18 106/66 (79) 96 08/11/18 00:00 97.2 80 18 121/70 (87) 98 08/10/18 21:00 95 107/64 08/10/18 21:00 Room Air 08/10/18 20:00 97.3 95 18 107/64 (78) 98 08/10/18 16:00 98.1 67 18 109/69 (82) 96 08/10/18 12:00 98.4 81 18 129/74 (92) 98 Intake and Output 08/10/18 08/11/18 19:00 07:00 Intake Total 510 ml 50 ml Balance 510 ml 50 ml Intake Oral 360 ml IV Total 150 ml 50 ml # Voids 2 2 # Bowel Movements 1 Laboratory Tests 08/11/18 07:40: White Blood Count 3.3L, Red Blood Count 3.44L, Hemoglobin 11.7L, Hematocrit 33.3L, Mean Corpuscular Volume 97, Mean Corpuscular Hemoglobin 33.9H, Mean Corpuscular Hemoglobin Concent 35.0, Red Cell Distribution Width 13.1, Platelet Count 40L, Mean Platelet Volume 7.3, Neutrophils (%) (Auto) , Lymphocytes (%) ( Auto) , Monocytes (%) (Auto) , Eosinophils (%) (Auto) , Basophils (%) (Auto) , Differential Total Cells Counted 100, Neutrophils % (Manual) 75, Lymphocytes % ( Manual) 17L, Monocytes % (Manual) 6, Eosinophils % (Manual) 2, Basophils % ( Manual) 0, Band Neutrophils 0, Platelet Estimate DecreasedL, Platelet Morphology Normal, Hypochromasia 1+, Anisocytosis 1+, Spherocytes 1+, Erythrocyte Sedimentation Rate 36H, Prothrombin Time 15.7H, Prothromb Time International Ratio 1.5H, Activated Partial Thromboplast Time 45H, Sodium Level 135L, Potassium Level 3.7, Chloride Level 104, Carbon Dioxide Level 27, Anion Gap 4L, Blood Urea Nitrogen 13, Creatinine 0.9, Estimat Glomerular Filtration Rate > 60, Glucose Level 220H, Calcium Level 7.5L, Phosphorus Level 2.6, Magnesium Level 1.6L, Total Bilirubin 2.9H, Direct Bilirubin 1.1H, Aspartate Amino Transf (AST/SGOT) 79H, Alanine Aminotransferase (ALT/SGPT) 93H, Alkaline Phosphatase 140H, C-Reactive Protein, Quantitative 2.3H, Total Protein 5.5L, Albumin 1.6L, Globulin 3.9, Albumin/Globulin Ratio 0.4L, Amylase Level 42, Lipase 323 Height (Feet): 5 Height (Inches): 5.00 Weight (Pounds): 128 General Appearance: alert, confused, agitated Luis Jackson MD Aug 11, 2018 11:56
[2018-08-11] MEDS: cefTRIAXone 1 GM in D5W 55 ML IVPB SCH (12:05)
--- NOTE | 2018-08-11 12:44 | Pre-Procedure Note/Attestation ---
Pre-Procedure Note/Attestation Complete Prior to Procedure Planned Procedure: not applicable Procedure Narrative: egd Indications for Procedure Pre-Operative Diagnosis: gib Attestation I attest that I discussed the nature of the procedure; its benefits; risks and complications; and alternatives (and the risks and benefits of such alternatives ), prior to the procedure, with the patient (or the patient's legal motor vehicle representative). I attest that, if there was a reasonable possibility of needing a blood transfusion, the patient (or the patient's legal motor vehicle representative) was given the [facility] standardized written summary, pursuant to the Antonino Marla Blood Safety Act ([place] Health and Safety Code # 1645, as amended). I attest that I re-evaluated the patient just prior to the surgery and that there has been no change in the patient's H&P, except as documented below: Jamarcus Floyd MD Aug 11, 2018 12:44
[2018-08-11] MEDS ORDERED: Propofol 200mg/20ml IV ONE (12:45)
[2018-08-11] MEDS ORDERED: fentaNYL 100 mcg/2 mL IV ONE (12:45)
[2018-08-11] MEDS ORDERED: Midazolam 2mg/2ml Inj ONE (12:45)
[2018-08-11] MEDS ORDERED: NS 500ML IVPB ONE (12:45)
--- NOTE | 2018-08-11 12:57 | Endoscopy Procedure Note ---
Endoscopy Procedure Note General Indication for Procedure: cirrhosis, anemia Procedures Performed: EGD Operative Findings/Diagnosis: gastritis Specimen: yes Pt Tolerated Procedure Well: Yes Estimated Blood Loss: none Anesthesia Anesthesiologist: terry Anesthesia: MAC Inserted Devices Implant(s) used?: No GI Core Measures 50 yrs or older w/o bx or poly: Not Applicable 10yrs. F/U not recommended: Not Applicable Jamarcus Floyd MD Aug 11, 2018 12:57
--- NOTE | 2018-08-11 13:10 | Immediate Post-Op Evaluation ---
Immediate Post-Op Evalulation Immediate Post-Op Evalulation Procedure: EGD with Bx. Date of Evaluation: Aug 11, 2018 Time of Evaluation: 13:09 IV Fluids: 200 Blood Products: none Estimated Blood Loss: none Urinary Output: none Blood Pressure Systolic: 116 Blood Pressure Diastolic: 72 Pulse Rate: 68 Respiratory Rate: 20 O2 Sat by Pulse Oximetry: 98 Temperature (Fahrenheit): 97.8 Pain Score (1-10): 1 Nausea: No Vomiting: No Complications none Patient Status: reacts, patent, none Hydration Status: adequate Hemal Wang MD Aug 11, 2018 13:10
--- NOTE | 2018-08-11 13:13 | 48 Hour Post Anesthesia Eval ---
Post Anesthesia Evaluation Procedure: EGD with Bx. Date of Evaluation: Aug 11, 2018 Time of Evaluation: 13:50 Blood Pressure Systolic: 118 0: 72 Pulse Rate: 68 Respiratory Rate: 18 Temperature (Fahrenheit): 97.4 O2 Sat by Pulse Oximetry: 98 Airway: patent Nausea: No Vomiting: No Pain Intensity: 1 Cardiopulmonary Status: stable Mental Status/LOC: patient returned to baseline Follow-up Care/Observations: n/a Post-Anesthesia Complications: none Follow-up care needed: N/A Hemal Wang MD Aug 11, 2018 13:13
--- NOTE | 2018-08-11 13:52 | Pulmonology Progress Note ---
Assessment/Plan Problems: (1) Acute encephalopathy (2) Hepatic cirrhosis (3) Hypoglycemia due to type 1 diabetes mellitus (4) UTI (urinary tract infection) (5) Thrombocytopenia (6) Anemia (7) Leukopenia (8) hepatitis (9) History of diabetes mellitus Assessment/Plan feeling better all reviewed no new complains f/u ammonia level check cultures iv fluids lactulose blood smear pending feeling better Hepatitis panel showing Hep S Subjective ROS Limited/Unobtainable: No Constitutional: Reports: no symptoms HEENT: Repors: no symptoms Respiratory: Reports: no symptoms Allergies: Coded Allergies: No Known Allergies (Unverified , 08/08/18) Objective Last 24 Hour Vital Signs Date Time Temp Pulse Resp B/P (MAP) Pulse Ox O2 Delivery O2 Flow Rate FiO2 08/11/18 13:32 97.8 75 18 106/65 100 Nasal Cannula 3 08/11/18 13:20 78 15 105/65 100 Nasal Cannula 3 08/11/18 13:15 78 13 111/61 100 Nasal Cannula 3 08/11/18 13:13 68 18 98 08/11/18 13:10 97.2 76 20 116/74 98 Nasal Cannula 3 08/11/18 13:10 68 20 98 08/11/18 12:00 97.5 83 16 107/61 (76) 97 08/11/18 09:00 Room Air 08/11/18 08:39 91 112/66 08/11/18 08:39 112/66 08/11/18 08:00 97.4 91 16 112/66 (81) 98 08/11/18 04:00 97.7 80 18 106/66 (79) 96 08/11/18 00:00 97.2 80 18 121/70 (87) 98 08/10/18 21:00 95 107/64 08/10/18 21:00 Room Air 08/10/18 20:00 97.3 95 18 107/64 (78) 98 08/10/18 16:00 98.1 67 18 109/69 (82) 96 Intake and Output 08/10/18 08/11/18 19:00 07:00 Intake Total 510 ml 50 ml Balance 510 ml 50 ml Intake Oral 360 ml IV Total 150 ml 50 ml # Voids 2 2 # Bowel Movements 1 General Appearance: WD/WN HEENT: normocephalic, atraumatic Respiratory/Chest: chest wall non-tender, lungs clear Cardiovascular: normal peripheral pulses, regular rhythm Abdomen: normal bowel sounds, soft, non tender Genitourinary: normal external genitalia Skin: no rash Microbiology Date/Time Source Procedure Growth Status 08/09/18 08:15 Blood Blood Culture - Preliminary NO GROWTH AFTER 24 HOURS Resulted 08/09/18 08:00 Blood Blood Culture - Preliminary NO GROWTH AFTER 24 HOURS Resulted Laboratory Tests 08/11/18 07:40: White Blood Count 3.3L, Red Blood Count 3.44L, Hemoglobin 11.7L, Hematocrit 33.3L, Mean Corpuscular Volume 97, Mean Corpuscular Hemoglobin 33.9H, Mean Corpuscular Hemoglobin Concent 35.0, Red Cell Distribution Width 13.1, Platelet Count 40L, Mean Platelet Volume 7.3, Neutrophils (%) (Auto) , Lymphocytes (%) ( Auto) , Monocytes (%) (Auto) , Eosinophils (%) (Auto) , Basophils (%) (Auto) , Differential Total Cells Counted 100, Neutrophils % (Manual) 75, Lymphocytes % ( Manual) 17L, Monocytes % (Manual) 6, Eosinophils % (Manual) 2, Basophils % ( Manual) 0, Band Neutrophils 0, Platelet Estimate DecreasedL, Platelet Morphology Normal, Hypochromasia 1+, Anisocytosis 1+, Spherocytes 1+, Erythrocyte Sedimentation Rate 36H, Prothrombin Time 15.7H, Prothromb Time International Ratio 1.5H, Activated Partial Thromboplast Time 45H, Sodium Level 135L, Potassium Level 3.7, Chloride Level 104, Carbon Dioxide Level 27, Anion Gap 4L, Blood Urea Nitrogen 13, Creatinine 0.9, Estimat Glomerular Filtration Rate > 60, Glucose Level 220H, Calcium Level 7.5L, Phosphorus Level 2.6, Magnesium Level 1.6L, Total Bilirubin 2.9H, Direct Bilirubin 1.1H, Aspartate Amino Transf (AST/SGOT) 79H, Alanine Aminotransferase (ALT/SGPT) 93H, Alkaline Phosphatase 140H, C-Reactive Protein, Quantitative 2.3H, Total Protein 5.5L, Albumin 1.6L, Globulin 3.9, Albumin/Globulin Ratio 0.4L, Amylase Level 42, Lipase 323 Current Medications Medications (Trade) Dose Ordered Sig/Aubrey Route PRN Reason Start Time Stop Time Status Last Admin Dose Admin Acetaminophen (Tylenol) 650 mg Q6H PRN ORAL Mild Pain/Temp > 100.5 08/09/18 07:45 09/08/18 07:44 08/09/18 16:09 Ceftriaxone Sodium 1 gm/ Dextrose 55 ml @ 110 mls/hr Q24H IVPB 08/08/18 12:00 08/15/18 11:59 08/11/18 12:05 Dextrose (Dextrose 50%) 25 ml Q30M PRN IV Hypoglycemia 08/09/18 13:15 09/08/18 13:14 Dextrose (Dextrose 50%) 50 ml Q30M PRN IV Hypoglycemia 08/09/18 13:15 09/08/18 13:14 Diphenhydramine HCl (Benadryl) 25 mg Q15M PRN IVP Itching 08/11/18 10:45 08/11/18 18:00 Fentanyl Citrate (Sublimaze 100 mcg/2 mL) 25 mcg Q10M PRN IV Moderate Pain (Pain Scale 4-6) 08/11/18 10:45 08/11/18 18:00 Fluconazole (Diflucan) 100 mg DAILY ORAL 08/11/18 09:00 08/18/18 08:59 08/11/18 08:37 Insulin Aspart (NovoLOG) BEFORE MEALS AND HS SUBQ 08/08/18 16:30 09/07/18 16:29 08/11/18 06:33 Insulin Aspart (NovoLOG) 8 units NOVOTIAC SUBQ 08/10/18 11:50 09/08/18 16:49 08/10/18 17:35 Insulin Detemir (Levemir) 12 units BID SUBQ 08/10/18 09:00 09/08/18 13:59 08/11/18 06:32 Isosorbide Dinitrate (Isordil) 30 mg DAILY ORAL 08/08/18 11:00 09/07/18 10:59 08/09/18 08:49 Lactulose (Cephulac) 30 gm THREE TIMES A DAY ORAL 08/08/18 13:00 09/07/18 12:59 08/11/18 08:37 Lorazepam (Ativan 2mg/ml 1ml) 1 mg Q4H PRN IV For Anxiety 08/09/18 19:00 08/16/18 18:59 08/10/18 08:41 Ondansetron HCl (Zofran) 4 mg Q1H PRN IVP Nausea & Vomiting 08/11/18 10:45 08/11/18 18:00 Oxybutynin Chloride (Ditropan) 10 mg BEFORE BREAKFAST ORAL 08/09/18 06:30 09/08/18 06:29 08/10/18 06:53 Patient Own Medication (Patient's Own Med) 1 ea DAILY ORAL 08/09/18 09:00 09/08/18 08:59 08/11/18 08:37 Propranolol HCl (Inderal) 10 mg EVERY 12 HOURS ORAL 08/08/18 21:00 09/07/18 20:59 08/10/18 08:39 Rifaximin (Xifaxan) 550 mg EVERY 12 HOURS ORAL 08/08/18 21:00 08/15/18 20:59 08/11/18 08:37 Risperidone (RisperDAL) 0.5 mg BEDTIME ORAL 08/10/18 21:00 09/09/18 20:59 08/10/18 21:28 Sodium Chloride 1,000 ml @ 50 mls/hr Q20H IV 08/09/18 15:00 09/08/18 14:59 08/11/18 03:18 Spironolactone (Aldactone) 50 mg DAILY ORAL 08/09/18 09:00 09/08/18 08:59 08/11/18 08:37 Tamsulosin HCl (Flomax) 0.4 mg BEDTIME ORAL 08/08/18 21:00 09/07/18 20:59 08/10/18 21:29 Macy Jasso MD Aug 11, 2018 13:52
--- NOTE | 2018-08-11 14:00 | NUR ---
NURSE NOTES: PT RETURNED FROM PACU FROM EGD. RECEIVED REPORT FROM PERLA REVELES. PT IN NO APPARENT DISTRESS AT THIS TIME. DENIES PAIN OR SOB. PT HAS CELLPHONE AND CELL PLASTERER CORD AT BEDSIDE. BED ALARM ON. PT IS AXOX1, CONFUSED/ PT WAS EDUCATED TO USE CALL LIGHT FOR ANY ASSISTANCE AND NOT TO AMBULATE INDEPENDENTLY. PT VERBALIZED UNDERSTANDING. BED IN LOWEST POSITION AND BEDSIDE RAILS X3 RAISED. BED ALARM ON. RESTING IN BED. WILL CONTINUE TO MONITOR.
--- NOTE | 2018-08-11 14:45 | NUR ---
PT EVALUATION NOTE: Patient seen for initial evaluation, see complete evaluation for details. Patient will benefit from skilled inpatient PT intervention to address strength, balance, safety awareness and functional mobility. Recommend SNF at discharge. DME needs to be determined based on progress. Addendum: 08/11/18 at 1525 by SEN GUZMAN PT Amended: Links added.
--- NOTE | 2018-08-11 16:15 | Procedure Note ---
DATE OF PROCEDURE: 08/11/2018 SURGEON: Jamarcus Floyd M.D. PROCEDURE: Upper endoscopy with biopsy. ANESTHESIA: Per Dr. Wang. INSTRUMENT: Olympus adult flexible upper endoscope. INDICATIONS: Cirrhosis and anemia. REASON FOR PROCEDURE: The procedure, risks, benefits, and possible consequences, including hemorrhage, aspiration, perforation and infection, and alternative treatments, were explained to the patient/legal guardian by Dr. Jamarcus Floyd and the patient/legal guardian understood and accepted these risks. PROCEDURE IN DETAIL: After informed consent was obtained and the patient was adequately sedated, Olympus upper endoscope was advanced from mouth into the second portion of the duodenum and retroflexion was performed in the stomach. The patient had 4 columns of grade 1 distal esophageal varices which was completely flattened out after we put air. There was some scar in the distal esophagus from prior banding. No need for this banding at this time. Then, the scope was advanced the stomach. There was evidence of portal hypertensive gastropathy, mild to moderate. Random biopsy from body and antrum was obtained to rule out H. pylori infection. The rest of the examination grossly within normal limits. SUMMARY OF FINDINGS: 1. Grade 1 distal esophageal varices. 2. Prior history of banding with scar in the distal esophagus. 3. Portal hypertensive gastropathy. RECOMMENDATIONS: Followup biopsy results and treat accordingly. I want to thank Dr. Charles Fontenot for this kind referral. Jamarcus Floyd M.D. DR: Bert JOB#: [id number] CC: Charles Fontenot M.D.; Fax#: [phone]
--- NOTE | 2018-08-11 18:13 | Internal Med Progress Note ---
Subjective Date of Service: Aug 11, 2018 Physician Name Salty Bailey Attending Physician Charles Fontenot MD Current Medications Medications (Trade) Dose Ordered Sig/Aubrey Route PRN Reason Start Time Stop Time Status Last Admin Dose Admin Acetaminophen (Tylenol) 650 mg Q6H PRN ORAL Mild Pain/Temp > 100.5 08/09/18 07:45 09/08/18 07:44 08/09/18 16:09 Ceftriaxone Sodium 1 gm/ Dextrose 55 ml @ 110 mls/hr Q24H IVPB 08/08/18 12:00 08/15/18 11:59 08/11/18 12:05 Dextrose (Dextrose 50%) 25 ml Q30M PRN IV Hypoglycemia 08/09/18 13:15 09/08/18 13:14 Dextrose (Dextrose 50%) 50 ml Q30M PRN IV Hypoglycemia 08/09/18 13:15 09/08/18 13:14 Fluconazole (Diflucan) 100 mg DAILY ORAL 08/11/18 09:00 08/18/18 08:59 08/11/18 08:37 Insulin Aspart (NovoLOG) BEFORE MEALS AND HS SUBQ 08/08/18 16:30 09/07/18 16:29 08/11/18 16:50 Insulin Aspart (NovoLOG) 8 units NOVOTIAC SUBQ 08/10/18 11:50 09/08/18 16:49 08/11/18 16:51 Insulin Detemir (Levemir) 12 units BID SUBQ 08/10/18 09:00 09/08/18 13:59 08/11/18 17:24 Isosorbide Dinitrate (Isordil) 30 mg DAILY ORAL 08/08/18 11:00 09/07/18 10:59 08/09/18 08:49 Lactulose (Cephulac) 30 gm THREE TIMES A DAY ORAL 08/08/18 13:00 09/07/18 12:59 08/11/18 17:23 Lorazepam (Ativan 2mg/ml 1ml) 1 mg Q4H PRN IV For Anxiety 08/09/18 19:00 08/16/18 18:59 08/10/18 08:41 Oxybutynin Chloride (Ditropan) 10 mg BEFORE BREAKFAST ORAL 08/09/18 06:30 09/08/18 06:29 08/10/18 06:53 Patient Own Medication (Patient's Own Med) 1 ea DAILY ORAL 08/09/18 09:00 09/08/18 08:59 08/11/18 08:37 Propranolol HCl (Inderal) 10 mg EVERY 12 HOURS ORAL 08/08/18 21:00 09/07/18 20:59 08/10/18 08:39 Rifaximin (Xifaxan) 550 mg EVERY 12 HOURS ORAL 08/08/18 21:00 08/15/18 20:59 08/11/18 08:37 Risperidone (RisperDAL) 0.5 mg BEDTIME ORAL 08/10/18 21:00 09/09/18 20:59 08/10/18 21:28 Sodium Chloride 1,000 ml @ 50 mls/hr Q20H IV 08/09/18 15:00 09/08/18 14:59 08/11/18 03:18 Spironolactone (Aldactone) 50 mg DAILY ORAL 08/09/18 09:00 09/08/18 08:59 08/11/18 08:37 Tamsulosin HCl (Flomax) 0.4 mg BEDTIME ORAL 08/08/18 21:00 09/07/18 20:59 08/10/18 21:29 Allergies: Coded Allergies: No Known Allergies (Unverified , 08/08/18) ROS Limited/Unobtainable: No Constitutional: Reports: no symptoms HEENT: Reports: no symptoms Cardiovascular: Reports: no symptoms Respiratory: Reports: no symptoms Gastrointestinal/Abdominal: Reports: no symptoms Genitourinary: Reports: no symptoms Neurologic/Psychiatric: Reports: no symptoms Subjective 67 YO M admitted with hypoglycemia. Now UTI. Cover for Int Med-Dr Fontenot. S/P endoscopy 08/11/18 Objective Last Vital Signs Date Time Temp Pulse Resp B/P (MAP) Pulse Ox O2 Delivery O2 Flow Rate FiO2 08/11/18 16:00 97.5 84 16 111/61 (78) 100 08/11/18 13:32 Nasal Cannula 3 Laboratory Tests Test 08/11/18 07:40 White Blood Count 3.3 K/UL (4.8-10.8) L Red Blood Count 3.44 M/UL (4.70-6.10) L Hemoglobin 11.7 G/DL (14.2-18.0) L Hematocrit 33.3 % (42.0-52.0) L Mean Corpuscular Volume 97 FL (80-99) Mean Corpuscular Hemoglobin 33.9 PG (27.0-31.0) H Mean Corpuscular Hemoglobin Concent 35.0 G/DL (32.0-36.0) Red Cell Distribution Width 13.1 % (11.6-14.8) Platelet Count 40 K/UL (150-450) L Mean Platelet Volume 7.3 FL (6.5-10.1) Neutrophils (%) (Auto) % (45.0-75.0) Lymphocytes (%) (Auto) % (20.0-45.0) Monocytes (%) (Auto) % (1.0-10.0) Eosinophils (%) (Auto) % (0.0-3.0) Basophils (%) (Auto) % (0.0-2.0) Differential Total Cells Counted 100 Neutrophils % (Manual) 75 % (45-75) Lymphocytes % (Manual) 17 % (20-45) L Monocytes % (Manual) 6 % (1-10) Eosinophils % (Manual) 2 % (0-3) Basophils % (Manual) 0 % (0-2) Band Neutrophils 0 % (0-8) Platelet Estimate Decreased L Platelet Morphology Normal Hypochromasia 1+ Anisocytosis 1+ Spherocytes 1+ Erythrocyte Sedimentation Rate 36 MM/HR (0-20) H Prothrombin Time 15.7 SEC (9.30-11.50) H Prothromb Time International Ratio 1.5 (0.9-1.1) H Activated Partial Thromboplast Time 45 SEC (23-33) H Sodium Level 135 MMOL/L (136-145) L Potassium Level 3.7 MMOL/L (3.5-5.1) Chloride Level 104 MMOL/L (98-107) Carbon Dioxide Level 27 MMOL/L (21-32) Anion Gap 4 mmol/L (5-15) L Blood Urea Nitrogen 13 mg/dL (7-18) Creatinine 0.9 MG/DL (0.55-1.30) Estimat Glomerular Filtration Rate > 60 mL/min (>60) Glucose Level 220 MG/DL (74-106) H Calcium Level 7.5 MG/DL (8.5-10.1) L Phosphorus Level 2.6 MG/DL (2.5-4.9) Magnesium Level 1.6 MG/DL (1.8-2.4) L Total Bilirubin 2.9 MG/DL (0.2-1.0) H Direct Bilirubin 1.1 MG/DL (0.0-0.3) H Aspartate Amino Transf (AST/SGOT) 79 U/L (15-37) H Alanine Aminotransferase (ALT/SGPT) 93 U/L (12-78) H Alkaline Phosphatase 140 U/L (46-116) H C-Reactive Protein, Quantitative 2.3 mg/dL (0.00-0.90) H Total Protein 5.5 G/DL (6.4-8.2) L Albumin 1.6 G/DL (3.4-5.0) L Globulin 3.9 g/dL Albumin/Globulin Ratio 0.4 (1.0-2.7) L Amylase Level 42 U/L (25-115) Lipase 323 U/L (73-393) Microbiology Date/Time Source Procedure Growth Status 08/09/18 08:15 Blood Blood Culture - Preliminary NO GROWTH AFTER 24 HOURS Resulted 08/09/18 08:00 Blood Blood Culture - Preliminary NO GROWTH AFTER 24 HOURS Resulted Intake and Output 08/10/18 08/11/18 19:00 07:00 Intake Total 510 ml 50 ml Balance 510 ml 50 ml Intake Oral 360 ml IV Total 150 ml 50 ml # Voids 2 2 # Bowel Movements 1 Assessment/Plan Problem List: (1) Diabetes mellitus type II, uncontrolled Assessment & Plan: [id number]. Continue levemir and novolog sliding sclae per endocrinology (2) Hepatitis B (3) Cirrhosis of liver (4) Portal hypertension (5) BPH (benign prostatic hyperplasia) Assessment & Plan: Continue flomax (6) Hypoglycemia due to type 1 diabetes mellitus Assessment & Plan: See endocrinology note. (7) UTI (urinary tract infection) Assessment & Plan: Yeast-start fluconazole. Continue ceftriaxone. (8) Fever Assessment & Plan: Continue ceftriaxone. Await blood culture results. (9) Increased ammonia level (10) Acute encephalopathy Assessment & Plan: Due to elevated ammonia Salty Bailey MD Aug 11, 2018 18:12
--- NOTE | 2018-08-11 19:58 | NUR ---
HAND-OFF: Report given to JADON DANIELS RN.
--- NOTE | 2018-08-11 20:00 | NUR ---
Received patient in bed. No SOB, no acute distress, no c/o pain. IV intact and patent on R hand running NS 50cc/hr. Bed in lowest position, locked, alarms on. Call light in reach. In stable condition.
[2018-08-11] MEDS: Tamsulosin 0.4mg cap ORAL SCH (21:44)
[2018-08-12] VITALS: BP 110/60
--- NOTE | 2018-08-12 02:00 | NUR ---
NURSE NOTES: Patient pulled out IV on R hand and refused new IV insertion. Stated, "Is this tattoo? I don't want tattoo." Explained risk and benefit regarding IV access but patient continued on refusing. Called DTR via phone, patient spoke to DTR and agreed to have another insertion. 22G on L hand intact and patent running fluid.
[2018-08-12] MEDS: LORazepam Inj 2mg/ml 1ml IV PRN ×2 (02:01→14:25)
--- NOTE | 2018-08-12 03:00 | NUR ---
NURSE NOTES: Patient dressed himself with gee and jose shirt and attempt to leave room. Stated, "I need to go home, bus is coming." Reality orientation given. Helped back to bed in comfortable position. Patient is clean and dry. Will continue monitor closely.
[2018-08-12 04:00] VITALS: BP 116/62
[2018-08-12] MEDS: Oxybutynin 5mg tab ORAL SCH (06:30)
[2018-08-12] MEDS: NovoLOG Insulin Flexpen SUBQ SCH ×7 (06:36→22:26)
--- NOTE | 2018-08-12 07:45 | NUR ---
HAND-OFF: Report given to Rosa Fuchs RN.
--- NOTE | 2018-08-12 07:46 | NUR ---
NURSE NOTES: Received patient in bed,awake, alert and oriented x1-2. Patient does not attempt to leave the facility @ this time. Patient knows his name and age. Patient is wearing his own clothes. RN encouraged patient to change it to hospital gown but patient refused @ this time. " I am ok with this." IV intact, no s/s of infiltration. Patient is fall risks, RN reminded patient to call nurses if needed and demonstrated how to use call light. Bed alarm is on for safety and side rails up. Close monitoring. Will continue plan of care.
[2018-08-12 08:00] VITALS: BP 104/52
[2018-08-12] MEDS: Lactulose 20gm/30ml UDC ORAL SCH ×3 (08:20→18:14)
[2018-08-12] MEDS: Fluconazole 100mg tab ORAL SCH (08:20)
[2018-08-12] MEDS: Spironolactone 50mg tab ORAL SCH (08:20)
[2018-08-12] MEDS: Propranolol 10mg tab ORAL SCH ×2 (08:21→22:24)
[2018-08-12] MEDS: [UNRECOGNIZED DRUG - REMARK] ORAL SCH (08:21)
[2018-08-12] MEDS: Levemir Flexpen SUBQ SCH ×2 (08:26→18:12)
[2018-08-12 08:57] LABS: HEMATOCRIT 34.5 % (42.0-52.0); HEMOGLOBIN 11.8 G/DL (14.2-18.0); MEAN CORPUSCULAR VOLUME 98 FL (80-99); PLATELET COUNT 44 K/UL (150-450); RED BLOOD COUNT 3.53 M/UL (4.70-6.10); RED CELL DISTRIBUTION WIDTH 12.7 % (11.6-14.8); WHITE BLOOD COUNT 3.2 K/UL (4.8-10.8)
[2018-08-12 09:19] LABS: ANION GAP 2 mmol/L (5-15); BLOOD UREA NITROGEN 13 mg/dL (7-18); CALCIUM 7.8 MG/DL (8.5-10.1); CARBON DIOXIDE 28 MMOL/L (21-32); CHLORIDE 105 MMOL/L (98-107); CREATININE 0.8 MG/DL (0.55-1.30); POTASSIUM 3.7 MMOL/L (3.5-5.1); SODIUM 135 MMOL/L (136-145)
--- NOTE | 2018-08-12 10:00 | NUR ---
NURSE NOTES: Patient came back from MRI dept in stable condition. Patient changed hs clothes to hospital gown but tried to go to restroom by hilself. RN reminded the patient to call nurses.
--- NOTE | 2018-08-12 10:06 | NUR ---
MRI BRAIN COMPLETED.
--- NOTE | 2018-08-12 10:07 | Infectious Diseases Prog Note ---
Assessment/Plan Assessment/Plan 67 yo male with PMHx of DM, Hep B, Liver cerrhosis and BPH who was sent to the ED from his custodial for increaed confusion and and low bloos sugar. UTI UA positive, confusion decreased glucose UCx 08/08 - Yeast Fever 102 - resolved No leukocytosis Hypogylcememia - Resolved Confusion - Not at baseline per family Ascites No pain or leukocytosis so SBP less likely US 08/09/18 - Evidence of hepatic cirrhosis, with hepatic surface nodularity and coarsened echogenicity, portal hypertension, with trace ascites, enlarged splenic vein, and possible bronson hepatis, splenic hilar varices, and splenomegaly, Unusual structure anteromedial to the right hepatic lobe. Stool-filled hepatic flexure of the colon. However, true mass lesion not completely excludable, and CT should be considered for better characterization - 08/11/18 - SP EGD DM HLD Liver cirrhosis Hep B Portal hypertention BPH PLAN - Continue Ceftriaxone #4/ - (UTI? less likely SBP) - Will stop if no infection evident tomorrow - Continue Flucoanzole 100mg PO Qday for 7 days ( End date 08/15/18) - Consider paracentesis - Monitor CBC and temps We will continue to follow the patient during this hospitalization. Subjective Allergies: Coded Allergies: No Known Allergies (Unverified , 08/08/18) Subjective S/P EGD 08/11/18 Afebrile No leukocytosis Objective Vital Signs Last 24 Hour Vital Signs Date Time Temp Pulse Resp B/P (MAP) Pulse Ox O2 Delivery O2 Flow Rate FiO2 08/12/18 08:22 104/52 08/12/18 08:21 90 104/52 08/12/18 08:00 97.6 90 19 104/52 (69) 99 08/12/18 04:00 97.5 87 16 116/62 (80) 99 08/12/18 00:00 97.9 87 16 110/60 (77) 98 08/11/18 21:00 Room Air 08/11/18 20:58 95 114/68 08/11/18 20:00 98.2 95 17 114/68 (83) 97 08/11/18 16:00 97.5 84 16 111/61 (78) 100 08/11/18 13:32 97.8 75 18 106/65 100 Nasal Cannula 3 08/11/18 13:20 78 15 105/65 100 Nasal Cannula 3 08/11/18 13:15 78 13 111/61 100 Nasal Cannula 3 08/11/18 13:13 68 18 98 08/11/18 13:10 97.2 76 20 116/74 98 Nasal Cannula 3 08/11/18 13:10 68 20 98 08/11/18 12:00 97.5 83 16 107/61 (76) 97 Height (Feet): 5 Height (Inches): 5.00 Weight (Pounds): 132 Objective Gen: NAD alert on RA HEENT: NCAT, MMM, EOMI LUNGS: CTAB, No W CARDS: RRR, S1, S2 ABD: Soft, NT, Distended, + BS Laboratory Tests Test 08/12/18 07:50 White Blood Count 3.2 K/UL (4.8-10.8) L Red Blood Count 3.53 M/UL (4.70-6.10) L Hemoglobin 11.8 G/DL (14.2-18.0) L Hematocrit 34.5 % (42.0-52.0) L Mean Corpuscular Volume 98 FL (80-99) Mean Corpuscular Hemoglobin 33.5 PG (27.0-31.0) H Mean Corpuscular Hemoglobin Concent 34.3 G/DL (32.0-36.0) Red Cell Distribution Width 12.7 % (11.6-14.8) Platelet Count 44 K/UL (150-450) L Mean Platelet Volume 9.2 FL (6.5-10.1) Neutrophils (%) (Auto) % (45.0-75.0) Lymphocytes (%) (Auto) % (20.0-45.0) Monocytes (%) (Auto) % (1.0-10.0) Eosinophils (%) (Auto) % (0.0-3.0) Basophils (%) (Auto) % (0.0-2.0) Neutrophils % (Manual) Pending Lymphocytes % (Manual) Pending Platelet Estimate Pending Platelet Morphology Pending Sodium Level 135 MMOL/L (136-145) L Potassium Level 3.7 MMOL/L (3.5-5.1) Chloride Level 105 MMOL/L (98-107) Carbon Dioxide Level 28 MMOL/L (21-32) Anion Gap 2 mmol/L (5-15) L Blood Urea Nitrogen 13 mg/dL (7-18) Creatinine 0.8 MG/DL (0.55-1.30) Estimat Glomerular Filtration Rate > 60 mL/min (>60) Glucose Level 211 MG/DL (74-106) H Calcium Level 7.8 MG/DL (8.5-10.1) L Ammonia 24 umol/L (11-32) Current Medications Medications (Trade) Dose Ordered Sig/Aubrey Route PRN Reason Start Time Stop Time Status Last Admin Dose Admin Acetaminophen (Tylenol) 650 mg Q6H PRN ORAL Mild Pain/Temp > 100.5 08/09/18 07:45 09/08/18 07:44 08/09/18 16:09 Ceftriaxone Sodium 1 gm/ Dextrose 55 ml @ 110 mls/hr Q24H IVPB 08/08/18 12:00 08/15/18 11:59 08/11/18 12:05 Dextrose (Dextrose 50%) 25 ml Q30M PRN IV Hypoglycemia 08/09/18 13:15 09/08/18 13:14 Dextrose (Dextrose 50%) 50 ml Q30M PRN IV Hypoglycemia 08/09/18 13:15 09/08/18 13:14 Fluconazole (Diflucan) 100 mg DAILY ORAL 08/11/18 09:00 08/18/18 08:59 08/12/18 08:20 Insulin Aspart (NovoLOG) BEFORE MEALS AND HS SUBQ 08/08/18 16:30 09/07/18 16:29 08/12/18 06:37 Insulin Aspart (NovoLOG) 8 units NOVOTIAC SUBQ 08/10/18 11:50 09/08/18 16:49 08/12/18 06:36 Insulin Detemir (Levemir) 12 units BID SUBQ 08/10/18 09:00 09/08/18 13:59 08/12/18 08:26 Isosorbide Dinitrate (Isordil) 30 mg DAILY ORAL 08/08/18 11:00 09/07/18 10:59 08/09/18 08:49 Lactulose (Cephulac) 30 gm THREE TIMES A DAY ORAL 08/08/18 13:00 09/07/18 12:59 08/12/18 08:20 Lorazepam (Ativan 2mg/ml 1ml) 1 mg Q4H PRN IV For Anxiety 08/09/18 19:00 08/16/18 18:59 08/12/18 02:01 Oxybutynin Chloride (Ditropan) 10 mg BEFORE BREAKFAST ORAL 08/09/18 06:30 09/08/18 06:29 08/10/18 06:53 Patient Own Medication (Patient's Own Med) 1 ea DAILY ORAL 08/09/18 09:00 09/08/18 08:59 08/12/18 08:21 Propranolol HCl (Inderal) 10 mg EVERY 12 HOURS ORAL 08/08/18 21:00 09/07/18 20:59 08/10/18 08:39 Rifaximin (Xifaxan) 550 mg EVERY 12 HOURS ORAL 08/08/18 21:00 08/15/18 20:59 08/12/18 08:20 Risperidone (RisperDAL) 0.5 mg BEDTIME ORAL 08/10/18 21:00 09/09/18 20:59 08/11/18 21:44 Sodium Chloride 1,000 ml @ 50 mls/hr Q20H IV 08/09/18 15:00 09/08/18 14:59 08/12/18 02:54 Spironolactone (Aldactone) 50 mg DAILY ORAL 08/09/18 09:00 09/08/18 08:59 08/12/18 08:20 Tamsulosin HCl (Flomax) 0.4 mg BEDTIME ORAL 08/08/18 21:00 09/07/18 20:59 08/11/18 21:44 Raji Thomas MD Aug 12, 2018 10:07
--- NOTE | 2018-08-12 11:11 | Diagnostic Imaging Report ---
Indication: Altered mental status, elevated ammonia levels Technique: sagittal T1 fast spin echo, axial T1 FLAIR, axial T2 FLAIR, axial T2 FS PROPELLER, axial T2* GRE, axial diffusion weighted images. ADC and exponential ADC maps generated Comparison: none Findings: No abnormal areas of restricted diffusion to suggest acute infarction. No acute hemorrhage or edema. Small focus of susceptibility artifact in the left posterior parietal deep white matter is consistent with old microbleed. No mass effect nor midline shift. There is age-related enlargement of the ventricles and extra axial CSF spaces. There is periventricular deep white matter high T2 signal consistent with chronic ischemic change. There is evidence of prior bilateral cataract surgery. The sinuses are unremarkable. 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
--- NOTE | 2018-08-12 11:25 | GI Progress Note ---
Assessment/Plan Problems: (1) Acute encephalopathy ICD Codes: G93.40 - Encephalopathy, unspecified SNOMED: 91426640, 239995181 (2) Hepatic cirrhosis ICD Codes: K74.60 - Unspecified cirrhosis of liver SNOMED: 51908806 (3) Anemia ICD Codes: D64.9 - Anemia, unspecified SNOMED: 973678171 Qualifiers: Qualified Codes: D64.9 - Anemia, unspecified (4) Cirrhosis of liver ICD Codes: K74.60 - Unspecified cirrhosis of liver SNOMED: 10740483 (5) Hepatitis B ICD Codes: B19.10 - Unspecified viral hepatitis B without hepatic coma SNOMED: 73603002 (6) Portal hypertension ICD Codes: K76.6 - Portal hypertension SNOMED: 22412912 (7) hepatitis Status: unchanged Status Narrative Discussed with Dr. Floyd Assessment/Plan Patient is currently being treated for hepatitis B as an outpatient Elevated ammonia levels now resolved SUMMARY OF FINDINGS: 1. Grade 1 distal esophageal varices with no banding. 2. Prior history of banding with scar in the distal esophagus. 3. Portal hypertensive gastropathy. RECOMMENDATIONS: Followup biopsy results and treat accordingly. continue propranolol Continue lactulose and rifaximin Follow-up alpha-fetoprotein As needed transfusions PPI Follow-up labs The patient was seen and examined at bedside and all new and available data was reviewed in the patients chart. I agree with the above findings, impression and plan. (Patient seen earlier today. Signature stamp does not reflect patient encounter time.). - Jamarcus Floyd MD Subjective Subjective Limited Objective Last 24 Hour Vital Signs Date Time Temp Pulse Resp B/P (MAP) Pulse Ox O2 Delivery O2 Flow Rate FiO2 08/12/18 09:00 Room Air 08/12/18 08:22 104/52 08/12/18 08:21 90 104/52 08/12/18 08:00 97.6 90 19 104/52 (69) 99 08/12/18 04:00 97.5 87 16 116/62 (80) 99 08/12/18 00:00 97.9 87 16 110/60 (77) 98 08/11/18 21:00 Room Air 08/11/18 20:58 95 114/68 08/11/18 20:00 98.2 95 17 114/68 (83) 97 08/11/18 16:00 97.5 84 16 111/61 (78) 100 08/11/18 13:32 97.8 75 18 106/65 100 Nasal Cannula 3 08/11/18 13:20 78 15 105/65 100 Nasal Cannula 3 08/11/18 13:15 78 13 111/61 100 Nasal Cannula 3 08/11/18 13:13 68 18 98 08/11/18 13:10 97.2 76 20 116/74 98 Nasal Cannula 3 08/11/18 13:10 68 20 98 08/11/18 12:00 97.5 83 16 107/61 (76) 97 Intake and Output 08/11/18 08/12/18 18:59 06:59 Intake Total 1595 ml 650 ml Balance 1595 ml 650 ml Intake Oral 740 ml IV Total 855 ml 650 ml # Voids 3 2 # Bowel Movements 4 Laboratory Tests Test 08/12/18 07:50 White Blood Count 3.2 K/UL (4.8-10.8) L Red Blood Count 3.53 M/UL (4.70-6.10) L Hemoglobin 11.8 G/DL (14.2-18.0) L Hematocrit 34.5 % (42.0-52.0) L Mean Corpuscular Volume 98 FL (80-99) Mean Corpuscular Hemoglobin 33.5 PG (27.0-31.0) H Mean Corpuscular Hemoglobin Concent 34.3 G/DL (32.0-36.0) Red Cell Distribution Width 12.7 % (11.6-14.8) Platelet Count 44 K/UL (150-450) L Mean Platelet Volume 9.2 FL (6.5-10.1) Neutrophils (%) (Auto) % (45.0-75.0) Lymphocytes (%) (Auto) % (20.0-45.0) Monocytes (%) (Auto) % (1.0-10.0) Eosinophils (%) (Auto) % (0.0-3.0) Basophils (%) (Auto) % (0.0-2.0) Neutrophils % (Manual) Pending Lymphocytes % (Manual) Pending Platelet Estimate Pending Platelet Morphology Pending Sodium Level 135 MMOL/L (136-145) L Potassium Level 3.7 MMOL/L (3.5-5.1) Chloride Level 105 MMOL/L (98-107) Carbon Dioxide Level 28 MMOL/L (21-32) Anion Gap 2 mmol/L (5-15) L Blood Urea Nitrogen 13 mg/dL (7-18) Creatinine 0.8 MG/DL (0.55-1.30) Estimat Glomerular Filtration Rate > 60 mL/min (>60) Glucose Level 211 MG/DL (74-106) H Calcium Level 7.8 MG/DL (8.5-10.1) L Ammonia 24 umol/L (11-32) Height (Feet): 5 Height (Inches): 5.00 Weight (Pounds): 132 General Appearance: no apparent distress, alert, confused, thin Cardiovascular: normal rate Respiratory/Chest: normal breath sounds, no respiratory distress Abdominal Exam: normal bowel sounds, non tender, soft Extremities: normal range of motion, non-tender Sujata Jackson NP Aug 12, 2018 11:25
--- NOTE | 2018-08-12 11:55 | NUR ---
CASE MANAGEMENT:REVIEW 08/12/18 SI: ASCITES. UTI. HYPOGLYCEMIA S/P EGD(+) ESOPHAGEAL VARICES 97.6 90 19 104/52 99% ON RA IS: IVF@50/HR IV ROCEPHIN Q24 ISORDIL PO QD DIFLUCAN PO QD RISPERDAL PO QHS LEVEMIR SQ BID : MED/SURG STATUS DCP: FROM [facility]
[2018-08-12 12:00] VITALS: BP 130/74
--- NOTE | 2018-08-12 12:10 | NUR ---
DISCHARGE PLANNING FAXED CLINICALS TO [facility] FOR PATIENT TO RETURN VRE COLONIZED? AWAITING DISCHARGE ORDER
--- NOTE | 2018-08-12 12:48 | Internal Med Progress Note ---
Subjective Date of Service: Aug 12, 2018 Physician Name Salty Bailey Attending Physician Charles Fontenot MD Current Medications Medications (Trade) Dose Ordered Sig/Aubrey Route PRN Reason Start Time Stop Time Status Last Admin Dose Admin Acetaminophen (Tylenol) 650 mg Q6H PRN ORAL Mild Pain/Temp > 100.5 08/09/18 07:45 09/08/18 07:44 08/09/18 16:09 Ceftriaxone Sodium 1 gm/ Dextrose 55 ml @ 110 mls/hr Q24H IVPB 08/08/18 12:00 08/15/18 11:59 08/11/18 12:05 Dextrose (Dextrose 50%) 25 ml Q30M PRN IV Hypoglycemia 08/09/18 13:15 09/08/18 13:14 Dextrose (Dextrose 50%) 50 ml Q30M PRN IV Hypoglycemia 08/09/18 13:15 09/08/18 13:14 Fluconazole (Diflucan) 100 mg DAILY ORAL 08/11/18 09:00 08/18/18 08:59 08/12/18 08:20 Insulin Aspart (NovoLOG) BEFORE MEALS AND HS SUBQ 08/08/18 16:30 09/07/18 16:29 08/12/18 12:24 Insulin Aspart (NovoLOG) 8 units NOVOTIAC SUBQ 08/10/18 11:50 09/08/18 16:49 08/12/18 12:23 Insulin Detemir (Levemir) 12 units BID SUBQ 08/10/18 09:00 09/08/18 13:59 08/12/18 08:26 Isosorbide Dinitrate (Isordil) 30 mg DAILY ORAL 08/08/18 11:00 09/07/18 10:59 08/09/18 08:49 Lactulose (Cephulac) 30 gm THREE TIMES A DAY ORAL 08/08/18 13:00 09/07/18 12:59 08/12/18 12:39 Lorazepam (Ativan 2mg/ml 1ml) 1 mg Q4H PRN IV For Anxiety 08/09/18 19:00 08/16/18 18:59 08/12/18 02:01 Oxybutynin Chloride (Ditropan) 10 mg BEFORE BREAKFAST ORAL 08/09/18 06:30 09/08/18 06:29 08/10/18 06:53 Patient Own Medication (Patient's Own Med) 1 ea DAILY ORAL 08/09/18 09:00 09/08/18 08:59 08/12/18 08:21 Propranolol HCl (Inderal) 10 mg EVERY 12 HOURS ORAL 08/08/18 21:00 09/07/18 20:59 08/10/18 08:39 Rifaximin (Xifaxan) 550 mg EVERY 12 HOURS ORAL 08/08/18 21:00 08/15/18 20:59 08/12/18 08:20 Risperidone (RisperDAL) 0.5 mg BEDTIME ORAL 08/10/18 21:00 09/09/18 20:59 08/11/18 21:44 Sodium Chloride 1,000 ml @ 50 mls/hr Q20H IV 08/09/18 15:00 09/08/18 14:59 08/12/18 02:54 Spironolactone (Aldactone) 50 mg DAILY ORAL 08/09/18 09:00 09/08/18 08:59 08/12/18 08:20 Tamsulosin HCl (Flomax) 0.4 mg BEDTIME ORAL 08/08/18 21:00 09/07/18 20:59 08/11/18 21:44 Allergies: Coded Allergies: No Known Allergies (Unverified , 08/08/18) ROS Limited/Unobtainable: Yes Subjective 67 YO M admitted with hypoglycemia. Now UTI. Cover for Int Med-Dr Fontenot. S/P endoscopy 08/11/18 Objective Last Vital Signs Date Time Temp Pulse Resp B/P (MAP) Pulse Ox O2 Delivery O2 Flow Rate FiO2 08/12/18 09:00 Room Air 08/12/18 08:22 104/52 08/12/18 08:21 90 08/12/18 08:00 97.6 19 99 08/11/18 13:32 3 Laboratory Tests Test 08/12/18 07:50 White Blood Count 3.2 K/UL (4.8-10.8) L Red Blood Count 3.53 M/UL (4.70-6.10) L Hemoglobin 11.8 G/DL (14.2-18.0) L Hematocrit 34.5 % (42.0-52.0) L Mean Corpuscular Volume 98 FL (80-99) Mean Corpuscular Hemoglobin 33.5 PG (27.0-31.0) H Mean Corpuscular Hemoglobin Concent 34.3 G/DL (32.0-36.0) Red Cell Distribution Width 12.7 % (11.6-14.8) Platelet Count 44 K/UL (150-450) L Mean Platelet Volume 9.2 FL (6.5-10.1) Neutrophils (%) (Auto) % (45.0-75.0) Lymphocytes (%) (Auto) % (20.0-45.0) Monocytes (%) (Auto) % (1.0-10.0) Eosinophils (%) (Auto) % (0.0-3.0) Basophils (%) (Auto) % (0.0-2.0) Differential Total Cells Counted 100 Neutrophils % (Manual) 76 % (45-75) H Lymphocytes % (Manual) 20 % (20-45) Monocytes % (Manual) 3 % (1-10) Eosinophils % (Manual) 1 % (0-3) Basophils % (Manual) 0 % (0-2) Band Neutrophils 0 % (0-8) Platelet Estimate Decreased L Platelet Morphology Normal Red Blood Cell Morphology Normal Sodium Level 135 MMOL/L (136-145) L Potassium Level 3.7 MMOL/L (3.5-5.1) Chloride Level 105 MMOL/L (98-107) Carbon Dioxide Level 28 MMOL/L (21-32) Anion Gap 2 mmol/L (5-15) L Blood Urea Nitrogen 13 mg/dL (7-18) Creatinine 0.8 MG/DL (0.55-1.30) Estimat Glomerular Filtration Rate > 60 mL/min (>60) Glucose Level 211 MG/DL (74-106) H Calcium Level 7.8 MG/DL (8.5-10.1) L Ammonia 24 umol/L (11-32) Intake and Output 08/11/18 08/12/18 18:59 06:59 Intake Total 1595 ml 650 ml Balance 1595 ml 650 ml Intake Oral 740 ml IV Total 855 ml 650 ml # Voids 3 2 # Bowel Movements 4 Objective General Appearance: WD/WN, no apparent distress, alert EENT: PERRL/EOMI, normal ENT inspection Neck: non-tender, normal alignment, supple, normal inspection Cardiovascular: normal peripheral pulses, normal rate, regular rhythm, no gallop/murmur, no JVD Respiratory/Chest: chest wall non-tender, lungs clear, normal breath sounds, no respiratory distress, no accessory muscle use Abdomen: normal bowel sounds, non tender, soft, no organomegaly, no mass Extremities: normal range of motion, non-tender Neurologic: business planning director II-XII grossly normal, no motor/sensory deficits Skin: normal pigmentation, warm/dry Assessment/Plan Problem List: (1) Diabetes mellitus type II, uncontrolled Assessment & Plan: TEDV=383-182. Continue levemir and novolog sliding sclae per endocrinology (2) Hepatitis B (3) Cirrhosis of liver (4) Portal hypertension (5) BPH (benign prostatic hyperplasia) Assessment & Plan: Continue flomax (6) Hypoglycemia due to type 1 diabetes mellitus Assessment & Plan: See endocrinology note. (7) UTI (urinary tract infection) Assessment & Plan: Yeast-start fluconazole. Continue ceftriaxone. (8) Fever Assessment & Plan: Continue ceftriaxone. Await blood culture results. (9) Increased ammonia level (10) Acute encephalopathy Assessment & Plan: MRI brain=neg infarct or hemorrhage. ?Due to elevated ammonia Status: stable Assessment/Plan Discussed with son, Richard OrlandoSalty iyer MD Aug 12, 2018 12:48
--- NOTE | 2018-08-12 13:26 | Pulmonology Progress Note ---
Assessment/Plan Problems: (1) Acute encephalopathy (2) Hepatic cirrhosis (3) Hypoglycemia due to type 1 diabetes mellitus (4) UTI (urinary tract infection) (5) Thrombocytopenia (6) Anemia (7) Leukopenia (8) hepatitis (9) History of diabetes mellitus Assessment/Plan feeling better all reviewed no new complains f/u ammonia level check cultures iv fluids lactulose blood smear pending feeling better Hepatitis panel showing Hep S Subjective ROS Limited/Unobtainable: No Constitutional: Reports: no symptoms Allergies: Coded Allergies: No Known Allergies (Unverified , 08/08/18) Objective Last 24 Hour Vital Signs Date Time Temp Pulse Resp B/P (MAP) Pulse Ox O2 Delivery O2 Flow Rate FiO2 08/12/18 09:00 Room Air 08/12/18 08:22 104/52 08/12/18 08:21 90 104/52 08/12/18 08:00 97.6 90 19 104/52 (69) 99 08/12/18 04:00 97.5 87 16 116/62 (80) 99 08/12/18 00:00 97.9 87 16 110/60 (77) 98 08/11/18 21:00 Room Air 08/11/18 20:58 95 114/68 08/11/18 20:00 98.2 95 17 114/68 (83) 97 08/11/18 16:00 97.5 84 16 111/61 (78) 100 08/11/18 13:32 97.8 75 18 106/65 100 Nasal Cannula 3 Intake and Output 08/11/18 08/12/18 18:59 06:59 Intake Total 1595 ml 650 ml Balance 1595 ml 650 ml Intake Oral 740 ml IV Total 855 ml 650 ml # Voids 3 2 # Bowel Movements 4 Objective General Appearance: WD/WN, no apparent distress Lines, tubes and drains: peripheral HEENT: normocephalic, atraumatic Neck: non-tender, normal alignment Respiratory/Chest: chest wall non-tender, decreased breath sounds Cardiovascular/Chest: normal peripheral pulses, normal rate Abdomen: normal bowel sounds, non tender Genitourinary/Rectal: normal genital exam Extremities: normal range of motion, non-tender Skin Exam: normal pigmentation Neurologic: straightedge man II-XII grossly normal Laboratory Tests 08/12/18 07:50: White Blood Count 3.2L, Red Blood Count 3.53L, Hemoglobin 11.8L, Hematocrit 34.5L, Mean Corpuscular Volume 98, Mean Corpuscular Hemoglobin 33.5H, Mean Corpuscular Hemoglobin Concent 34.3, Red Cell Distribution Width 12.7, Platelet Count 44L, Mean Platelet Volume 9.2, Neutrophils (%) (Auto) , Lymphocytes (%) ( Auto) , Monocytes (%) (Auto) , Eosinophils (%) (Auto) , Basophils (%) (Auto) , Differential Total Cells Counted 100, Neutrophils % (Manual) 76H, Lymphocytes % (Manual) 20, Monocytes % (Manual) 3, Eosinophils % (Manual) 1, Basophils % ( Manual) 0, Band Neutrophils 0, Platelet Estimate DecreasedL, Platelet Morphology Normal, Red Blood Cell Morphology Normal, Sodium Level 135L, Potassium Level 3.7, Chloride Level 105, Carbon Dioxide Level 28, Anion Gap 2L, Blood Urea Nitrogen 13, Creatinine 0.8, Estimat Glomerular Filtration Rate > 60 , Glucose Level 211H, Calcium Level 7.8L, Ammonia 24 Current Medications Medications (Trade) Dose Ordered Sig/Aubrey Route PRN Reason Start Time Stop Time Status Last Admin Dose Admin Acetaminophen (Tylenol) 650 mg Q6H PRN ORAL Mild Pain/Temp > 100.5 08/09/18 07:45 09/08/18 07:44 08/09/18 16:09 Ceftriaxone Sodium 1 gm/ Dextrose 55 ml @ 110 mls/hr Q24H IVPB 08/08/18 12:00 08/15/18 11:59 08/11/18 12:05 Dextrose (Dextrose 50%) 25 ml Q30M PRN IV Hypoglycemia 08/09/18 13:15 09/08/18 13:14 Dextrose (Dextrose 50%) 50 ml Q30M PRN IV Hypoglycemia 08/09/18 13:15 09/08/18 13:14 Fluconazole (Diflucan) 100 mg DAILY ORAL 08/11/18 09:00 08/18/18 08:59 08/12/18 08:20 Insulin Aspart (NovoLOG) BEFORE MEALS AND HS SUBQ 08/08/18 16:30 09/07/18 16:29 08/12/18 12:24 Insulin Aspart (NovoLOG) 8 units NOVOTIAC SUBQ 08/10/18 11:50 09/08/18 16:49 08/12/18 12:23 Insulin Detemir (Levemir) 12 units BID SUBQ 08/10/18 09:00 09/08/18 13:59 08/12/18 08:26 Isosorbide Dinitrate (Isordil) 30 mg DAILY ORAL 08/08/18 11:00 09/07/18 10:59 08/09/18 08:49 Lactulose (Cephulac) 30 gm THREE TIMES A DAY ORAL 08/08/18 13:00 09/07/18 12:59 08/12/18 12:39 Lorazepam (Ativan 2mg/ml 1ml) 1 mg Q4H PRN IV For Anxiety 08/09/18 19:00 08/16/18 18:59 08/12/18 02:01 Oxybutynin Chloride (Ditropan) 10 mg BEFORE BREAKFAST ORAL 08/09/18 06:30 09/08/18 06:29 08/10/18 06:53 Patient Own Medication (Patient's Own Med) 1 ea DAILY ORAL 08/09/18 09:00 09/08/18 08:59 08/12/18 08:21 Propranolol HCl (Inderal) 10 mg EVERY 12 HOURS ORAL 08/08/18 21:00 09/07/18 20:59 08/10/18 08:39 Rifaximin (Xifaxan) 550 mg EVERY 12 HOURS ORAL 08/08/18 21:00 08/15/18 20:59 08/12/18 08:20 Risperidone (RisperDAL) 0.5 mg BEDTIME ORAL 08/10/18 21:00 09/09/18 20:59 08/11/18 21:44 Sodium Chloride 1,000 ml @ 50 mls/hr Q20H IV 08/09/18 15:00 09/08/18 14:59 08/12/18 02:54 Spironolactone (Aldactone) 50 mg DAILY ORAL 08/09/18 09:00 09/08/18 08:59 08/12/18 08:20 Tamsulosin HCl (Flomax) 0.4 mg BEDTIME ORAL 08/08/18 21:00 09/07/18 20:59 08/11/18 21:44 Macy Jasso MD Aug 12, 2018 13:26
--- NOTE | 2018-08-12 13:52 | NUR ---
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
[2018-08-12] MEDS: cefTRIAXone 1 GM in D5W 55 ML IVPB SCH (14:18)
--- NOTE | 2018-08-12 14:25 | NUR ---
NURSE NOTES: all of a sudden Patient got up from his bed and started changing his clothes again and said " [place]." and he washed his face and hand to get ready for work. Patient got his stuff and trying to leave the unit. RN and COFFEE BREWER and charge nurse watched the patient and tried to give orientation but patient is anxious and tried to leave. Given ativan 1mg IV , wasted 1mg witnessed by another RN. Security was called. Patient went back in bed. Will continue to monitor.
[2018-08-12 16:00] VITALS: BP 107/67
--- NOTE | 2018-08-12 17:00 | NUR ---
NURSE NOTES: Unable to administer 8 units of scheduled insulin and administered 6 units of levemir due to patient did not eat @ this time. He wants to sleep more.
--- NOTE | 2018-08-12 19:00 | General Progress Note ---
Assessment/Plan Problem List: (1) Hepatic cirrhosis ICD Codes: K74.60 - Unspecified cirrhosis of liver SNOMED: 84942374 (2) History of diabetes mellitus ICD Codes: Z86.39 - Personal history of other endocrine, nutritional and metabolic disease SNOMED: 198497873 (3) Acute encephalopathy ICD Codes: G93.40 - Encephalopathy, unspecified SNOMED: 25802035, 236349630 (4) Hypoglycemia due to type 1 diabetes mellitus ICD Codes: E10.649 - Type 1 diabetes mellitus with hypoglycemia without coma SNOMED: 95769003925045, 82370915 (5) Thrombocytopenia ICD Codes: D69.6 - Thrombocytopenia, unspecified SNOMED: 677512655, 170859877 Assessment/Plan continue Levemir 12 units bid continue Novolog 8 units ac tid continue NISS Subjective ROS Limited/Unobtainable: Yes Allergies: Coded Allergies: No Known Allergies (Unverified , 08/08/18) Subjective events noted Objective Last 24 Hour Vital Signs Date Time Temp Pulse Resp B/P (MAP) Pulse Ox O2 Delivery O2 Flow Rate FiO2 08/12/18 16:00 98.6 69 20 107/67 (80) 97 08/12/18 12:00 97.4 67 19 130/74 (92) 99 08/12/18 09:00 Room Air 08/12/18 08:22 104/52 08/12/18 08:21 90 104/52 08/12/18 08:00 97.6 90 19 104/52 (69) 99 08/12/18 04:00 97.5 87 16 116/62 (80) 99 08/12/18 00:00 97.9 87 16 110/60 (77) 98 08/11/18 21:00 Room Air 08/11/18 20:58 95 114/68 08/11/18 20:00 98.2 95 17 114/68 (83) 97 Intake and Output 08/11/18 08/12/18 19:00 07:00 Intake Total 1595 ml 600 ml Balance 1595 ml 600 ml Intake Oral 740 ml IV Total 855 ml 600 ml # Voids 3 2 # Bowel Movements 4 Laboratory Tests 08/12/18 07:50: White Blood Count 3.2L, Red Blood Count 3.53L, Hemoglobin 11.8L, Hematocrit 34.5L, Mean Corpuscular Volume 98, Mean Corpuscular Hemoglobin 33.5H, Mean Corpuscular Hemoglobin Concent 34.3, Red Cell Distribution Width 12.7, Platelet Count 44L, Mean Platelet Volume 9.2, Neutrophils (%) (Auto) , Lymphocytes (%) ( Auto) , Monocytes (%) (Auto) , Eosinophils (%) (Auto) , Basophils (%) (Auto) , Differential Total Cells Counted 100, Neutrophils % (Manual) 76H, Lymphocytes % (Manual) 20, Monocytes % (Manual) 3, Eosinophils % (Manual) 1, Basophils % ( Manual) 0, Band Neutrophils 0, Platelet Estimate DecreasedL, Platelet Morphology Normal, Red Blood Cell Morphology Normal, Sodium Level 135L, Potassium Level 3.7, Chloride Level 105, Carbon Dioxide Level 28, Anion Gap 2L, Blood Urea Nitrogen 13, Creatinine 0.8, Estimat Glomerular Filtration Rate > 60 , Glucose Level 211H, Calcium Level 7.8L, Ammonia 24 Height (Feet): 5 Height (Inches): 5.00 Weight (Pounds): 132 General Appearance: no apparent distress Neck: normal alignment Cardiovascular: normal rate Respiratory/Chest: lungs clear Abdomen: normal bowel sounds Objective Current Medications Medications (Trade) Dose Ordered Sig/Aubrey Route PRN Reason Start Time Stop Time Status Last Admin Dose Admin Acetaminophen (Tylenol) 650 mg Q6H PRN ORAL Mild Pain/Temp > 100.5 08/09/18 07:45 09/08/18 07:44 08/09/18 16:09 Ceftriaxone Sodium 1 gm/ Dextrose 55 ml @ 110 mls/hr Q24H IVPB 08/08/18 12:00 08/15/18 11:59 08/12/18 14:18 Dextrose (Dextrose 50%) 25 ml Q30M PRN IV Hypoglycemia 08/09/18 13:15 09/08/18 13:14 Dextrose (Dextrose 50%) 50 ml Q30M PRN IV Hypoglycemia 08/09/18 13:15 09/08/18 13:14 Fluconazole (Diflucan) 100 mg DAILY ORAL 08/11/18 09:00 08/18/18 08:59 08/12/18 08:20 Insulin Aspart (NovoLOG) BEFORE MEALS AND HS SUBQ 08/08/18 16:30 09/07/18 16:29 08/12/18 18:11 Insulin Aspart (NovoLOG) 8 units NOVOTIAC SUBQ 08/10/18 11:50 09/08/18 16:49 08/12/18 12:23 Insulin Detemir (Levemir) 12 units BID SUBQ 08/10/18 09:00 09/08/18 13:59 08/12/18 18:12 Isosorbide Dinitrate (Isordil) 30 mg DAILY ORAL 08/08/18 11:00 09/07/18 10:59 08/09/18 08:49 Lactulose (Cephulac) 30 gm THREE TIMES A DAY ORAL 08/08/18 13:00 09/07/18 12:59 08/12/18 18:14 Lorazepam (Ativan 2mg/ml 1ml) 1 mg Q4H PRN IV For Anxiety 08/09/18 19:00 08/16/18 18:59 08/12/18 14:25 Oxybutynin Chloride (Ditropan) 10 mg BEFORE BREAKFAST ORAL 08/09/18 06:30 09/08/18 06:29 08/10/18 06:53 Patient Own Medication (Patient's Own Med) 1 ea DAILY ORAL 08/09/18 09:00 09/08/18 08:59 08/12/18 08:21 Propranolol HCl (Inderal) 10 mg EVERY 12 HOURS ORAL 08/08/18 21:00 09/07/18 20:59 08/10/18 08:39 Rifaximin (Xifaxan) 550 mg EVERY 12 HOURS ORAL 08/08/18 21:00 08/15/18 20:59 08/12/18 08:20 Risperidone (RisperDAL) 0.5 mg BEDTIME ORAL 08/10/18 21:00 09/09/18 20:59 08/11/18 21:44 Sodium Chloride 1,000 ml @ 50 mls/hr Q20H IV 08/09/18 15:00 09/08/18 14:59 08/12/18 02:54 Spironolactone (Aldactone) 50 mg DAILY ORAL 08/09/18 09:00 09/08/18 08:59 08/12/18 08:20 Tamsulosin HCl (Flomax) 0.4 mg BEDTIME ORAL 08/08/18 21:00 09/07/18 20:59 08/11/18 21:44 Item Value Date Time Bedside Blood Glucose 228 mg/dl H 08/12/18 1812 Bedside Blood Glucose 195 mg/dl H 08/12/18 1224 Bedside Blood Glucose 229 mg/dl H 08/12/18 0826 Bedside Blood Glucose 244 mg/dl H 08/12/18 0637 Bedside Blood Glucose 260 mg/dl H 08/11/18 2146 Bedside Blood Glucose 348 mg/dl H 08/11/18 1724 Cedric Kellogg MD Aug 12, 2018 19:00
--- NOTE | 2018-08-12 19:41 | NUR ---
HAND-OFF: Report given to Harish DUNCAN.
--- NOTE | 2018-08-12 19:42 | NUR ---
NURSE NOTES: Received patient in no apparent distress. Alert with confusion. IV site patent and intact. Family members are at bedside. Bed in lowest position. Call light within reach. Will continue to monitor.
[2018-08-12 20:00] VITALS: BP 120/60
[2018-08-12] MEDS: Tamsulosin 0.4mg cap ORAL SCH (22:24)
--- NOTE | 2018-08-12 22:52 | General Progress Note ---
Assessment/Plan Problem List: (1) Acute encephalopathy ICD Codes: G93.40 - Encephalopathy, unspecified SNOMED: 90628337, 033545118 Assessment/Plan risperdal .5mg po qhs the pt lacks capacity to make decisions/ Subjective Neurologic/Psychiatric: Reports: anxiety, depressed, emotional problems Allergies: Coded Allergies: No Known Allergies (Unverified , 08/08/18) Subjective the pt cont to be confused and disorganized Objective Last 24 Hour Vital Signs Date Time Temp Pulse Resp B/P (MAP) Pulse Ox O2 Delivery O2 Flow Rate FiO2 08/12/18 22:24 89 120/60 08/12/18 16:00 98.6 69 20 107/67 (80) 97 08/12/18 12:00 97.4 67 19 130/74 (92) 99 08/12/18 09:00 Room Air 08/12/18 08:22 104/52 08/12/18 08:21 90 104/52 08/12/18 08:00 97.6 90 19 104/52 (69) 99 08/12/18 04:00 97.5 87 16 116/62 (80) 99 08/12/18 00:00 97.9 87 16 110/60 (77) 98 Intake and Output 08/11/18 08/12/18 19:00 07:00 Intake Total 1595 ml 600 ml Balance 1595 ml 600 ml Intake Oral 740 ml IV Total 855 ml 600 ml # Voids 3 2 # Bowel Movements 4 Laboratory Tests 08/12/18 07:50: White Blood Count 3.2L, Red Blood Count 3.53L, Hemoglobin 11.8L, Hematocrit 34.5L, Mean Corpuscular Volume 98, Mean Corpuscular Hemoglobin 33.5H, Mean Corpuscular Hemoglobin Concent 34.3, Red Cell Distribution Width 12.7, Platelet Count 44L, Mean Platelet Volume 9.2, Neutrophils (%) (Auto) , Lymphocytes (%) ( Auto) , Monocytes (%) (Auto) , Eosinophils (%) (Auto) , Basophils (%) (Auto) , Differential Total Cells Counted 100, Neutrophils % (Manual) 76H, Lymphocytes % (Manual) 20, Monocytes % (Manual) 3, Eosinophils % (Manual) 1, Basophils % ( Manual) 0, Band Neutrophils 0, Platelet Estimate DecreasedL, Platelet Morphology Normal, Red Blood Cell Morphology Normal, Sodium Level 135L, Potassium Level 3.7, Chloride Level 105, Carbon Dioxide Level 28, Anion Gap 2L, Blood Urea Nitrogen 13, Creatinine 0.8, Estimat Glomerular Filtration Rate > 60 , Glucose Level 211H, Calcium Level 7.8L, Ammonia 24 Height (Feet): 5 Height (Inches): 5.00 Weight (Pounds): 132 General Appearance: no apparent distress, alert, confused Luis Jackson MD Aug 12, 2018 22:52
[2018-08-13] VITALS: BP 129/70
[2018-08-13 04:00] VITALS: BP 116/68
[2018-08-13] MEDS: NovoLOG Insulin Flexpen SUBQ SCH ×7 (06:11→20:42)
[2018-08-13] MEDS: Oxybutynin 5mg tab ORAL SCH (06:12)
--- NOTE | 2018-08-13 07:25 | NUR ---
nurse notes received patient resting comfortably in bed,patient awake, confused reality orientation provided, no sign of distress denies pain or discomfort, IVF patent and infusing well, on fall precaution observed and maintained, both side rails up for safety,kept clean dry and intact, needs met and anticipated tere painter
--- NOTE | 2018-08-13 07:30 | NUR ---
HAND-OFF: Report given to Belinda DUNCAN.
[2018-08-13 07:50] LABS: HEMATOCRIT 33.7 % (42.0-52.0); HEMOGLOBIN 11.6 G/DL (14.2-18.0); MEAN CORPUSCULAR VOLUME 96 FL (80-99); PLATELET COUNT 42 K/UL (150-450); RED BLOOD COUNT 3.49 M/UL (4.70-6.10); RED CELL DISTRIBUTION WIDTH 12.9 % (11.6-14.8); WHITE BLOOD COUNT 3.4 K/UL (4.8-10.8)
[2018-08-13 08:00] VITALS: BP 113/61
[2018-08-13 08:25] LABS: ANION GAP 4 mmol/L (5-15); BLOOD UREA NITROGEN 8 mg/dL (7-18); CALCIUM 7.6 MG/DL (8.5-10.1); CARBON DIOXIDE 28 MMOL/L (21-32); CHLORIDE 105 MMOL/L (98-107); CREATININE 0.7 MG/DL (0.55-1.30); SODIUM 137 MMOL/L (136-145)
[2018-08-13] MEDS: Propranolol 10mg tab ORAL SCH ×2 (08:31→20:41)
[2018-08-13] MEDS: Lactulose 20gm/30ml UDC ORAL SCH ×3 (08:31→17:15)
[2018-08-13] MEDS: Fluconazole 100mg tab ORAL SCH (08:31)
[2018-08-13] MEDS: Spironolactone 50mg tab ORAL SCH (08:31)
[2018-08-13] MEDS: Levemir Flexpen SUBQ SCH ×2 (08:33→17:12)
--- NOTE | 2018-08-13 09:39 | Infectious Diseases Prog Note ---
Assessment/Plan Assessment/Plan 67 yo male with PMHx of DM, Hep B, Liver cerrhosis and BPH who was sent to the ED from his long term for increaed confusion and and low bloos sugar. UTI UA positive, confusion decreased glucose UCx 08/08 - Yeast Fever 102 - resolved No leukocytosis Hypogylcememia - Resolved Confusion - Not at baseline per family Likely secondary to liver cirrhosis Ascites No pain or leukocytosis so SBP less likely US 08/09/18 - Evidence of hepatic cirrhosis, with hepatic surface nodularity and coarsened echogenicity, portal hypertension, with trace ascites, enlarged splenic vein, and possible bronson hepatis, splenic hilar varices, and splenomegaly, Unusual structure anteromedial to the right hepatic lobe. Stool-filled hepatic flexure of the colon. However, true mass lesion not completely excludable, and CT should be considered for better characterization - 08/11/18 - SP EGD DM HLD Liver cirrhosis Hep B Portal hypertention BPH PLAN - Continue Flucoanzole 100mg PO Qday for 7 days ( End date 08/15/18) - 08/13/18 SP Ceftriaxone #5- (UTI? less likely SBP) - Monitor CBC and temps We will continue to follow the patient during this hospitalization. Subjective Allergies: Coded Allergies: No Known Allergies (Unverified , 08/08/18) Subjective Still a little confused Afebrile No leukocytosis Objective Vital Signs Last 24 Hour Vital Signs Date Time Temp Pulse Resp B/P (MAP) Pulse Ox O2 Delivery O2 Flow Rate FiO2 08/13/18 08:31 84 116/68 08/13/18 08:31 116/68 08/13/18 08:18 Room Air 08/13/18 08:00 97.5 84 18 113/61 (78) 98 08/13/18 04:00 98.9 84 16 116/68 (84) 98 08/13/18 00:00 98.2 91 17 129/70 (89) 95 08/12/18 22:24 89 120/60 08/12/18 21:00 Room Air 08/12/18 20:00 98.2 89 16 120/60 (80) 98 08/12/18 16:00 98.6 69 20 107/67 (80) 97 08/12/18 12:00 97.4 67 19 130/74 (92) 99 Height (Feet): 5 Height (Inches): 5.00 Weight (Pounds): 132 Objective Gen: NAD, Confused HEENT: NCAT, MMM, EOMI LUNGS: CTAB, No W CARDS: RRR, S1, S2 ABD: Soft, NT, Distended, + BS Laboratory Tests Test 08/13/18 00:20 08/13/18 07:20 Stool Occult Blood Pending White Blood Count 3.4 K/UL (4.8-10.8) L Red Blood Count 3.49 M/UL (4.70-6.10) L Hemoglobin 11.6 G/DL (14.2-18.0) L Hematocrit 33.7 % (42.0-52.0) L Mean Corpuscular Volume 96 FL (80-99) Mean Corpuscular Hemoglobin 33.3 PG (27.0-31.0) H Mean Corpuscular Hemoglobin Concent 34.5 G/DL (32.0-36.0) Red Cell Distribution Width 12.9 % (11.6-14.8) Platelet Count 42 K/UL (150-450) L Mean Platelet Volume 7.6 FL (6.5-10.1) Neutrophils (%) (Auto) % (45.0-75.0) Lymphocytes (%) (Auto) % (20.0-45.0) Monocytes (%) (Auto) % (1.0-10.0) Eosinophils (%) (Auto) % (0.0-3.0) Basophils (%) (Auto) % (0.0-2.0) Neutrophils % (Manual) Pending Lymphocytes % (Manual) Pending Platelet Estimate Pending Platelet Morphology Pending Sodium Level 137 MMOL/L (136-145) Potassium Level 4.0 MMOL/L (3.5-5.1) Chloride Level 105 MMOL/L (98-107) Carbon Dioxide Level 28 MMOL/L (21-32) Anion Gap 4 mmol/L (5-15) L Blood Urea Nitrogen 8 mg/dL (7-18) Creatinine 0.7 MG/DL (0.55-1.30) Estimat Glomerular Filtration Rate > 60 mL/min (>60) Glucose Level 99 MG/DL (74-106) # Calcium Level 7.6 MG/DL (8.5-10.1) L Current Medications Medications (Trade) Dose Ordered Sig/Aubrey Route PRN Reason Start Time Stop Time Status Last Admin Dose Admin Acetaminophen (Tylenol) 650 mg Q6H PRN ORAL Mild Pain/Temp > 100.5 08/09/18 07:45 09/08/18 07:44 08/09/18 16:09 Ceftriaxone Sodium 1 gm/ Dextrose 55 ml @ 110 mls/hr Q24H IVPB 08/08/18 12:00 08/15/18 11:59 08/12/18 14:18 Dextrose (Dextrose 50%) 25 ml Q30M PRN IV Hypoglycemia 08/09/18 13:15 09/08/18 13:14 Dextrose (Dextrose 50%) 50 ml Q30M PRN IV Hypoglycemia 08/09/18 13:15 09/08/18 13:14 Fluconazole (Diflucan) 100 mg DAILY ORAL 08/11/18 09:00 08/18/18 08:59 08/13/18 08:31 Insulin Aspart (NovoLOG) BEFORE MEALS AND HS SUBQ 08/08/18 16:30 09/07/18 16:29 08/12/18 22:26 Insulin Aspart (NovoLOG) 8 units NOVOTIAC SUBQ 08/10/18 11:50 09/08/18 16:49 08/12/18 12:23 Insulin Detemir (Levemir) 12 units BID SUBQ 08/10/18 09:00 09/08/18 13:59 08/13/18 08:33 Isosorbide Dinitrate (Isordil) 30 mg DAILY ORAL 08/08/18 11:00 09/07/18 10:59 08/13/18 08:31 Lactulose (Cephulac) 30 gm THREE TIMES A DAY ORAL 08/08/18 13:00 09/07/18 12:59 08/13/18 08:31 Lorazepam (Ativan 2mg/ml 1ml) 1 mg Q4H PRN IV For Anxiety 08/09/18 19:00 08/16/18 18:59 08/12/18 14:25 Oxybutynin Chloride (Ditropan) 10 mg BEFORE BREAKFAST ORAL 08/09/18 06:30 09/08/18 06:29 08/13/18 06:12 Patient Own Medication (Patient's Own Med) 1 ea DAILY ORAL 08/13/18 09:00 09/12/18 08:59 Propranolol HCl (Inderal) 10 mg EVERY 12 HOURS ORAL 08/08/18 21:00 09/07/18 20:59 08/13/18 08:31 Rifaximin (Xifaxan) 550 mg EVERY 12 HOURS ORAL 08/08/18 21:00 08/15/18 20:59 08/13/18 08:31 Risperidone (RisperDAL) 0.5 mg BEDTIME ORAL 08/10/18 21:00 09/09/18 20:59 08/12/18 22:25 Sodium Chloride 1,000 ml @ 50 mls/hr Q20H IV 08/09/18 15:00 09/08/18 14:59 08/12/18 23:09 Spironolactone (Aldactone) 50 mg DAILY ORAL 08/09/18 09:00 09/08/18 08:59 08/13/18 08:31 Tamsulosin HCl (Flomax) 0.4 mg BEDTIME ORAL 08/08/18 21:00 09/07/18 20:59 08/12/18 22:24 Raji Thomas MD Aug 13, 2018 09:39
[2018-08-13] MEDS: [UNRECOGNIZED DRUG - REMARK] ORAL SCH (09:47)
--- NOTE | 2018-08-13 11:25 | GI Progress Note ---
Assessment/Plan Problems: (1) Acute encephalopathy ICD Codes: G93.40 - Encephalopathy, unspecified SNOMED: 95041221, 654014783 (2) Hepatic cirrhosis ICD Codes: K74.60 - Unspecified cirrhosis of liver SNOMED: 07787387 (3) Anemia ICD Codes: D64.9 - Anemia, unspecified SNOMED: 677419329 Qualifiers: Qualified Codes: D64.9 - Anemia, unspecified (4) Cirrhosis of liver ICD Codes: K74.60 - Unspecified cirrhosis of liver SNOMED: 12896378 (5) Hepatitis B ICD Codes: B19.10 - Unspecified viral hepatitis B without hepatic coma SNOMED: 73444757 (6) Portal hypertension ICD Codes: K76.6 - Portal hypertension SNOMED: 01116821 (7) hepatitis Status: stable, unchanged Status Narrative Discussed with Dr. Floyd. Assessment/Plan Patient is currently being treated for hepatitis B as an outpatient Elevated ammonia levels now resolved AFP WNL SUMMARY OF FINDINGS: 1. Grade 1 distal esophageal varices with no banding. 2. Prior history of banding with scar in the distal esophagus. 3. Portal hypertensive gastropathy. RECOMMENDATIONS: Followup biopsy results and treat accordingly. continue propranolol Continue lactulose and rifaximin As needed transfusions PPI Follow-up labs patient qualifies for liver transplant The patient was seen and examined at bedside and all new and available data was reviewed in the patients chart. I agree with the above findings, impression and plan. (Patient seen earlier today. Signature stamp does not reflect patient encounter time.). - Jamarcus Floyd MD Subjective Subjective Limited Objective Last 24 Hour Vital Signs Date Time Temp Pulse Resp B/P (MAP) Pulse Ox O2 Delivery O2 Flow Rate FiO2 08/13/18 08:31 84 116/68 08/13/18 08:31 116/68 08/13/18 08:18 Room Air 08/13/18 08:00 97.5 84 18 113/61 (78) 98 08/13/18 04:00 98.9 84 16 116/68 (84) 98 08/13/18 00:00 98.2 91 17 129/70 (89) 95 08/12/18 22:24 89 120/60 08/12/18 21:00 Room Air 08/12/18 20:00 98.2 89 16 120/60 (80) 98 08/12/18 16:00 98.6 69 20 107/67 (80) 97 08/12/18 12:00 97.4 67 19 130/74 (92) 99 Intake and Output 08/12/18 08/13/18 19:00 07:00 Intake Total 790 ml 550 ml Balance 790 ml 550 ml Intake Oral 240 ml IV Total 550 ml 550 ml # Voids 2 2 # Bowel Movements 2 Laboratory Tests Test 08/13/18 00:20 08/13/18 07:20 Stool Occult Blood Pending White Blood Count 3.4 K/UL (4.8-10.8) L Red Blood Count 3.49 M/UL (4.70-6.10) L Hemoglobin 11.6 G/DL (14.2-18.0) L Hematocrit 33.7 % (42.0-52.0) L Mean Corpuscular Volume 96 FL (80-99) Mean Corpuscular Hemoglobin 33.3 PG (27.0-31.0) H Mean Corpuscular Hemoglobin Concent 34.5 G/DL (32.0-36.0) Red Cell Distribution Width 12.9 % (11.6-14.8) Platelet Count 42 K/UL (150-450) L Mean Platelet Volume 7.6 FL (6.5-10.1) Neutrophils (%) (Auto) % (45.0-75.0) Lymphocytes (%) (Auto) % (20.0-45.0) Monocytes (%) (Auto) % (1.0-10.0) Eosinophils (%) (Auto) % (0.0-3.0) Basophils (%) (Auto) % (0.0-2.0) Differential Total Cells Counted 100 Neutrophils % (Manual) 72 % (45-75) Lymphocytes % (Manual) 17 % (20-45) L Monocytes % (Manual) 7 % (1-10) Eosinophils % (Manual) 1 % (0-3) Basophils % (Manual) 1 % (0-2) Band Neutrophils 2 % (0-8) Platelet Estimate Decreased L Platelet Morphology Normal Red Blood Cell Morphology Normal Sodium Level 137 MMOL/L (136-145) Potassium Level 4.0 MMOL/L (3.5-5.1) Chloride Level 105 MMOL/L (98-107) Carbon Dioxide Level 28 MMOL/L (21-32) Anion Gap 4 mmol/L (5-15) L Blood Urea Nitrogen 8 mg/dL (7-18) Creatinine 0.7 MG/DL (0.55-1.30) Estimat Glomerular Filtration Rate > 60 mL/min (>60) Glucose Level 99 MG/DL (74-106) # Calcium Level 7.6 MG/DL (8.5-10.1) L Height (Feet): 5 Height (Inches): 5.00 Weight (Pounds): 132 General Appearance: WD/WN, no apparent distress, alert Cardiovascular: normal rate Respiratory/Chest: normal breath sounds, no respiratory distress Abdominal Exam: normal bowel sounds, non tender, soft Extremities: non-tender Sujata Jackson NP Aug 13, 2018 11:25
[2018-08-13 11:46] VITALS: BP 117/61
[2018-08-13] MEDS: cefTRIAXone 1 GM in D5W 55 ML IVPB SCH (11:46)
--- NOTE | 2018-08-13 14:05 | Pulmonology Progress Note ---
Assessment/Plan Problems: (1) Acute encephalopathy (2) Hepatic cirrhosis (3) Hypoglycemia due to type 1 diabetes mellitus (4) UTI (urinary tract infection) (5) Thrombocytopenia (6) Anemia (7) Leukopenia (8) hepatitis (9) History of diabetes mellitus Assessment/Plan feeling better all reviewed no new complains f/u ammonia level check cultures iv fluids lactulose blood smear pending feeling better Hepatitis panel showing Hep S Subjective ROS Limited/Unobtainable: No Constitutional: Reports: no symptoms HEENT: Repors: no symptoms Respiratory: Reports: no symptoms Allergies: Coded Allergies: No Known Allergies (Unverified , 08/08/18) Objective Last 24 Hour Vital Signs Date Time Temp Pulse Resp B/P (MAP) Pulse Ox O2 Delivery O2 Flow Rate FiO2 08/13/18 11:46 97.9 82 18 117/61 (79) 98 08/13/18 08:31 84 116/68 08/13/18 08:31 116/68 08/13/18 08:18 Room Air 08/13/18 08:00 97.5 84 18 113/61 (78) 98 08/13/18 04:00 98.9 84 16 116/68 (84) 98 08/13/18 00:00 98.2 91 17 129/70 (89) 95 08/12/18 22:24 89 120/60 08/12/18 21:00 Room Air 08/12/18 20:00 98.2 89 16 120/60 (80) 98 08/12/18 16:00 98.6 69 20 107/67 (80) 97 Intake and Output 08/12/18 08/13/18 18:59 06:59 Intake Total 790 ml 550 ml Balance 790 ml 550 ml Intake Oral 240 ml IV Total 550 ml 550 ml # Voids 2 2 # Bowel Movements 2 Objective General Appearance: WD/WN, no apparent distress Lines, tubes and drains: peripheral HEENT: normocephalic, atraumatic Neck: non-tender, normal alignment Respiratory/Chest: chest wall non-tender, decreased breath sounds Cardiovascular/Chest: normal peripheral pulses, normal rate Abdomen: normal bowel sounds, non tender Genitourinary/Rectal: normal genital exam Extremities: normal range of motion, non-tender Skin Exam: normal pigmentation Neurologic: contact lens flashing puncher II-XII grossly normal Laboratory Tests 08/13/18 00:20: Stool Occult Blood Negative 08/13/18 07:20: White Blood Count 3.4L, Red Blood Count 3.49L, Hemoglobin 11.6L, Hematocrit 33.7L, Mean Corpuscular Volume 96, Mean Corpuscular Hemoglobin 33.3H, Mean Corpuscular Hemoglobin Concent 34.5, Red Cell Distribution Width 12.9, Platelet Count 42L, Mean Platelet Volume 7.6, Neutrophils (%) (Auto) , Lymphocytes (%) ( Auto) , Monocytes (%) (Auto) , Eosinophils (%) (Auto) , Basophils (%) (Auto) , Differential Total Cells Counted 100, Neutrophils % (Manual) 72, Lymphocytes % ( Manual) 17L, Monocytes % (Manual) 7, Eosinophils % (Manual) 1, Basophils % ( Manual) 1, Band Neutrophils 2, Platelet Estimate DecreasedL, Platelet Morphology Normal, Red Blood Cell Morphology Normal, Sodium Level 137, Potassium Level 4.0, Chloride Level 105, Carbon Dioxide Level 28, Anion Gap 4L, Blood Urea Nitrogen 8, Creatinine 0.7, Estimat Glomerular Filtration Rate > 60, Glucose Level 99#, Calcium Level 7.6L Current Medications Medications (Trade) Dose Ordered Sig/Aubrey Route PRN Reason Start Time Stop Time Status Last Admin Dose Admin Acetaminophen (Tylenol) 650 mg Q6H PRN ORAL Mild Pain/Temp > 100.5 08/09/18 07:45 09/08/18 07:44 08/09/18 16:09 Ceftriaxone Sodium 1 gm/ Dextrose 55 ml @ 110 mls/hr Q24H IVPB 08/08/18 12:00 08/15/18 11:59 08/13/18 11:46 Dextrose (Dextrose 50%) 25 ml Q30M PRN IV Hypoglycemia 08/09/18 13:15 09/08/18 13:14 Dextrose (Dextrose 50%) 50 ml Q30M PRN IV Hypoglycemia 08/09/18 13:15 09/08/18 13:14 Fluconazole (Diflucan) 100 mg DAILY ORAL 08/11/18 09:00 08/18/18 08:59 08/13/18 08:31 Insulin Aspart (NovoLOG) BEFORE MEALS AND HS SUBQ 08/08/18 16:30 09/07/18 16:29 08/13/18 11:45 Insulin Aspart (NovoLOG) 8 units NOVOTIAC SUBQ 08/10/18 11:50 09/08/18 16:49 08/13/18 11:44 Insulin Detemir (Levemir) 12 units BID SUBQ 08/10/18 09:00 09/08/18 13:59 08/13/18 08:33 Isosorbide Dinitrate (Isordil) 30 mg DAILY ORAL 08/08/18 11:00 09/07/18 10:59 08/13/18 08:31 Lactulose (Cephulac) 30 gm THREE TIMES A DAY ORAL 08/08/18 13:00 09/07/18 12:59 08/13/18 12:07 Lorazepam (Ativan 2mg/ml 1ml) 1 mg Q4H PRN IV For Anxiety 08/09/18 19:00 08/16/18 18:59 08/12/18 14:25 Oxybutynin Chloride (Ditropan) 10 mg BEFORE BREAKFAST ORAL 08/09/18 06:30 09/08/18 06:29 08/13/18 06:12 Patient Own Medication (Patient's Own Med) 1 ea DAILY ORAL 08/13/18 09:00 09/12/18 08:59 08/13/18 09:47 Propranolol HCl (Inderal) 10 mg EVERY 12 HOURS ORAL 08/08/18 21:00 09/07/18 20:59 08/13/18 08:31 Rifaximin (Xifaxan) 550 mg EVERY 12 HOURS ORAL 08/08/18 21:00 08/15/18 20:59 08/13/18 08:31 Risperidone (RisperDAL) 0.5 mg BEDTIME ORAL 08/10/18 21:00 09/09/18 20:59 08/12/18 22:25 Sodium Chloride 1,000 ml @ 50 mls/hr Q20H IV 08/09/18 15:00 09/08/18 14:59 08/12/18 23:09 Spironolactone (Aldactone) 50 mg DAILY ORAL 08/09/18 09:00 09/08/18 08:59 08/13/18 08:31 Tamsulosin HCl (Flomax) 0.4 mg BEDTIME ORAL 08/08/18 21:00 09/07/18 20:59 08/12/18 22:24 Macy Jasso MD Aug 13, 2018 14:05
[2018-08-13] MEDS: LORazepam Inj 2mg/ml 1ml IV PRN (15:18)
--- NOTE | 2018-08-13 15:18 | NUR ---
nurse notes patient very agitated ativan given prn, after 30 min with relief tere painter
[2018-08-13 16:04] VITALS: BP 108/64
--- NOTE | 2018-08-13 17:42 | General Progress Note ---
Assessment/Plan Problem List: (1) Hepatic cirrhosis ICD Codes: K74.60 - Unspecified cirrhosis of liver SNOMED: 79737465 (2) History of diabetes mellitus ICD Codes: Z86.39 - Personal history of other endocrine, nutritional and metabolic disease SNOMED: 578079016 (3) Acute encephalopathy ICD Codes: G93.40 - Encephalopathy, unspecified SNOMED: 75475756, 858897553 (4) Hypoglycemia due to type 1 diabetes mellitus ICD Codes: E10.649 - Type 1 diabetes mellitus with hypoglycemia without coma SNOMED: 02074368818101, 92158004 (5) Thrombocytopenia ICD Codes: D69.6 - Thrombocytopenia, unspecified SNOMED: 208985836, 644000825 Assessment/Plan continue Levemir 12 units bid continue Novolog 8 units ac tid continue NISS Subjective ROS Limited/Unobtainable: Yes Allergies: Coded Allergies: No Known Allergies (Unverified , 08/08/18) Subjective events noted Objective Last 24 Hour Vital Signs Date Time Temp Pulse Resp B/P (MAP) Pulse Ox O2 Delivery O2 Flow Rate FiO2 08/13/18 16:04 98.1 88 18 108/64 (79) 96 08/13/18 11:46 97.9 82 18 117/61 (79) 98 08/13/18 08:31 84 116/68 08/13/18 08:31 116/68 08/13/18 08:18 Room Air 08/13/18 08:00 97.5 84 18 113/61 (78) 98 08/13/18 04:00 98.9 84 16 116/68 (84) 98 08/13/18 00:00 98.2 91 17 129/70 (89) 95 08/12/18 22:24 89 120/60 08/12/18 21:00 Room Air 08/12/18 20:00 98.2 89 16 120/60 (80) 98 Intake and Output 08/12/18 08/13/18 18:59 06:59 Intake Total 790 ml 550 ml Balance 790 ml 550 ml Intake Oral 240 ml IV Total 550 ml 550 ml # Voids 2 2 # Bowel Movements 2 Laboratory Tests 08/13/18 00:20: Stool Occult Blood Negative 08/13/18 07:20: White Blood Count 3.4L, Red Blood Count 3.49L, Hemoglobin 11.6L, Hematocrit 33.7L, Mean Corpuscular Volume 96, Mean Corpuscular Hemoglobin 33.3H, Mean Corpuscular Hemoglobin Concent 34.5, Red Cell Distribution Width 12.9, Platelet Count 42L, Mean Platelet Volume 7.6, Neutrophils (%) (Auto) , Lymphocytes (%) ( Auto) , Monocytes (%) (Auto) , Eosinophils (%) (Auto) , Basophils (%) (Auto) , Differential Total Cells Counted 100, Neutrophils % (Manual) 72, Lymphocytes % ( Manual) 17L, Monocytes % (Manual) 7, Eosinophils % (Manual) 1, Basophils % ( Manual) 1, Band Neutrophils 2, Platelet Estimate DecreasedL, Platelet Morphology Normal, Red Blood Cell Morphology Normal, Sodium Level 137, Potassium Level 4.0, Chloride Level 105, Carbon Dioxide Level 28, Anion Gap 4L, Blood Urea Nitrogen 8, Creatinine 0.7, Estimat Glomerular Filtration Rate > 60, Glucose Level 99#, Calcium Level 7.6L Height (Feet): 5 Height (Inches): 5.00 Weight (Pounds): 132 General Appearance: no apparent distress Neck: normal alignment Cardiovascular: normal rate Respiratory/Chest: decreased breath sounds Abdomen: normal bowel sounds Pelvis: normal external exam Objective Current Medications Medications (Trade) Dose Ordered Sig/Aubrey Route PRN Reason Start Time Stop Time Status Last Admin Dose Admin Acetaminophen (Tylenol) 650 mg Q6H PRN ORAL Mild Pain/Temp > 100.5 08/09/18 07:45 09/08/18 07:44 08/09/18 16:09 Ceftriaxone Sodium 1 gm/ Dextrose 55 ml @ 110 mls/hr Q24H IVPB 08/08/18 12:00 08/15/18 11:59 08/13/18 11:46 Dextrose (Dextrose 50%) 25 ml Q30M PRN IV Hypoglycemia 08/09/18 13:15 09/08/18 13:14 Dextrose (Dextrose 50%) 50 ml Q30M PRN IV Hypoglycemia 08/09/18 13:15 09/08/18 13:14 Fluconazole (Diflucan) 100 mg DAILY ORAL 08/11/18 09:00 08/18/18 08:59 08/13/18 08:31 Insulin Aspart (NovoLOG) BEFORE MEALS AND HS SUBQ 08/08/18 16:30 09/07/18 16:29 08/13/18 17:10 Insulin Aspart (NovoLOG) 8 units NOVOTIAC SUBQ 08/10/18 11:50 09/08/18 16:49 08/13/18 17:11 Insulin Detemir (Levemir) 12 units BID SUBQ 08/10/18 09:00 09/08/18 13:59 08/13/18 17:12 Isosorbide Dinitrate (Isordil) 30 mg DAILY ORAL 08/08/18 11:00 09/07/18 10:59 08/13/18 08:31 Lactulose (Cephulac) 30 gm THREE TIMES A DAY ORAL 08/08/18 13:00 09/07/18 12:59 08/13/18 17:15 Lorazepam (Ativan 2mg/ml 1ml) 1 mg Q4H PRN IV For Anxiety 08/09/18 19:00 08/16/18 18:59 08/13/18 15:18 Oxybutynin Chloride (Ditropan) 10 mg BEFORE BREAKFAST ORAL 08/09/18 06:30 09/08/18 06:29 08/13/18 06:12 Patient Own Medication (Patient's Own Med) 1 ea DAILY ORAL 08/13/18 09:00 09/12/18 08:59 08/13/18 09:47 Propranolol HCl (Inderal) 10 mg EVERY 12 HOURS ORAL 08/08/18 21:00 09/07/18 20:59 08/13/18 08:31 Rifaximin (Xifaxan) 550 mg EVERY 12 HOURS ORAL 08/08/18 21:00 08/15/18 20:59 08/13/18 08:31 Risperidone (RisperDAL) 0.5 mg BEDTIME ORAL 08/10/18 21:00 09/09/18 20:59 08/12/18 22:25 Sodium Chloride 1,000 ml @ 50 mls/hr Q20H IV 08/09/18 15:00 09/08/18 14:59 08/12/18 23:09 Spironolactone (Aldactone) 50 mg DAILY ORAL 08/09/18 09:00 09/08/18 08:59 08/13/18 08:31 Tamsulosin HCl (Flomax) 0.4 mg BEDTIME ORAL 08/08/18 21:00 09/07/18 20:59 08/12/18 22:24 Item Value Date Time Bedside Blood Glucose 267 mg/dl H 08/13/18 1712 Bedside Blood Glucose 285 mg/dl H 08/13/18 1145 Bedside Blood Glucose 108 mg/dl 08/13/18 0833 Bedside Blood Glucose 108 mg/dl 08/13/18 0611 Bedside Blood Glucose 310 mg/dl H 08/12/18 2226 Bedside Blood Glucose 228 mg/dl H 08/12/18 1812 Bedside Blood Glucose 195 mg/dl H 08/12/18 1224 Cedric Kellogg MD Aug 13, 2018 17:42
--- NOTE | 2018-08-13 18:13 | Internal Med Progress Note ---
Subjective Date of Service: Aug 13, 2018 Physician Name Salty Bailey Attending Physician Charles Fontenot MD Current Medications Medications (Trade) Dose Ordered Sig/Aubrey Route PRN Reason Start Time Stop Time Status Last Admin Dose Admin Acetaminophen (Tylenol) 650 mg Q6H PRN ORAL Mild Pain/Temp > 100.5 08/09/18 07:45 09/08/18 07:44 08/09/18 16:09 Ceftriaxone Sodium 1 gm/ Dextrose 55 ml @ 110 mls/hr Q24H IVPB 08/08/18 12:00 08/15/18 11:59 08/13/18 11:46 Dextrose (Dextrose 50%) 25 ml Q30M PRN IV Hypoglycemia 08/09/18 13:15 09/08/18 13:14 Dextrose (Dextrose 50%) 50 ml Q30M PRN IV Hypoglycemia 08/09/18 13:15 09/08/18 13:14 Fluconazole (Diflucan) 100 mg DAILY ORAL 08/11/18 09:00 08/18/18 08:59 08/13/18 08:31 Insulin Aspart (NovoLOG) BEFORE MEALS AND HS SUBQ 08/08/18 16:30 09/07/18 16:29 08/13/18 17:10 Insulin Aspart (NovoLOG) 8 units NOVOTIAC SUBQ 08/10/18 11:50 09/08/18 16:49 08/13/18 17:11 Insulin Detemir (Levemir) 12 units BID SUBQ 08/10/18 09:00 09/08/18 13:59 08/13/18 17:12 Isosorbide Dinitrate (Isordil) 30 mg DAILY ORAL 08/08/18 11:00 09/07/18 10:59 08/13/18 08:31 Lactulose (Cephulac) 30 gm THREE TIMES A DAY ORAL 08/08/18 13:00 09/07/18 12:59 08/13/18 17:15 Lorazepam (Ativan 2mg/ml 1ml) 1 mg Q4H PRN IV For Anxiety 08/09/18 19:00 08/16/18 18:59 08/13/18 15:18 Oxybutynin Chloride (Ditropan) 10 mg BEFORE BREAKFAST ORAL 08/09/18 06:30 09/08/18 06:29 08/13/18 06:12 Patient Own Medication (Patient's Own Med) 1 ea DAILY ORAL 08/13/18 09:00 09/12/18 08:59 08/13/18 09:47 Propranolol HCl (Inderal) 10 mg EVERY 12 HOURS ORAL 08/08/18 21:00 09/07/18 20:59 08/13/18 08:31 Rifaximin (Xifaxan) 550 mg EVERY 12 HOURS ORAL 08/08/18 21:00 08/15/18 20:59 08/13/18 08:31 Risperidone (RisperDAL) 0.5 mg BEDTIME ORAL 08/10/18 21:00 09/09/18 20:59 08/12/18 22:25 Sodium Chloride 1,000 ml @ 50 mls/hr Q20H IV 08/09/18 15:00 09/08/18 14:59 08/12/18 23:09 Spironolactone (Aldactone) 50 mg DAILY ORAL 08/09/18 09:00 09/08/18 08:59 08/13/18 08:31 Tamsulosin HCl (Flomax) 0.4 mg BEDTIME ORAL 08/08/18 21:00 09/07/18 20:59 08/12/18 22:24 Allergies: Coded Allergies: No Known Allergies (Unverified , 08/08/18) ROS Limited/Unobtainable: Yes Subjective 67 YO M admitted with hypoglycemia. Now UTI. Cover for Int Med-Dr Fontenot. S/P endoscopy 08/11/18 Objective Last Vital Signs Date Time Temp Pulse Resp B/P (MAP) Pulse Ox O2 Delivery O2 Flow Rate FiO2 08/13/18 16:04 98.1 88 18 108/64 (79) 96 08/13/18 08:18 Room Air 08/11/18 13:32 3 Laboratory Tests Test 08/13/18 00:20 08/13/18 07:20 Stool Occult Blood Negative (NEGATIVE) White Blood Count 3.4 K/UL (4.8-10.8) L Red Blood Count 3.49 M/UL (4.70-6.10) L Hemoglobin 11.6 G/DL (14.2-18.0) L Hematocrit 33.7 % (42.0-52.0) L Mean Corpuscular Volume 96 FL (80-99) Mean Corpuscular Hemoglobin 33.3 PG (27.0-31.0) H Mean Corpuscular Hemoglobin Concent 34.5 G/DL (32.0-36.0) Red Cell Distribution Width 12.9 % (11.6-14.8) Platelet Count 42 K/UL (150-450) L Mean Platelet Volume 7.6 FL (6.5-10.1) Neutrophils (%) (Auto) % (45.0-75.0) Lymphocytes (%) (Auto) % (20.0-45.0) Monocytes (%) (Auto) % (1.0-10.0) Eosinophils (%) (Auto) % (0.0-3.0) Basophils (%) (Auto) % (0.0-2.0) Differential Total Cells Counted 100 Neutrophils % (Manual) 72 % (45-75) Lymphocytes % (Manual) 17 % (20-45) L Monocytes % (Manual) 7 % (1-10) Eosinophils % (Manual) 1 % (0-3) Basophils % (Manual) 1 % (0-2) Band Neutrophils 2 % (0-8) Platelet Estimate Decreased L Platelet Morphology Normal Red Blood Cell Morphology Normal Sodium Level 137 MMOL/L (136-145) Potassium Level 4.0 MMOL/L (3.5-5.1) Chloride Level 105 MMOL/L (98-107) Carbon Dioxide Level 28 MMOL/L (21-32) Anion Gap 4 mmol/L (5-15) L Blood Urea Nitrogen 8 mg/dL (7-18) Creatinine 0.7 MG/DL (0.55-1.30) Estimat Glomerular Filtration Rate > 60 mL/min (>60) Glucose Level 99 MG/DL (74-106) # Calcium Level 7.6 MG/DL (8.5-10.1) L Intake and Output 08/12/18 08/13/18 18:59 06:59 Intake Total 790 ml 550 ml Balance 790 ml 550 ml Intake Oral 240 ml IV Total 550 ml 550 ml # Voids 2 2 # Bowel Movements 2 Objective General Appearance: WD/WN, no apparent distress, alert EENT: PERRL/EOMI, normal ENT inspection Neck: non-tender, normal alignment, supple, normal inspection Cardiovascular: normal peripheral pulses, normal rate, regular rhythm, no gallop/murmur, no JVD Respiratory/Chest: chest wall non-tender, lungs clear, normal breath sounds, no respiratory distress, no accessory muscle use Abdomen: normal bowel sounds, non tender, soft, no organomegaly, no mass Extremities: normal range of motion, non-tender 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 Continue levemir and novolog sliding sclae per endocrinology (2) Hepatitis B (3) Cirrhosis of liver (4) Portal hypertension (5) BPH (benign prostatic hyperplasia) Assessment & Plan: Continue flomax (6) Hypoglycemia due to type 1 diabetes mellitus Assessment & Plan: See endocrinology note. (7) UTI (urinary tract infection) Assessment & Plan: Yeast-start fluconazole. Continue ceftriaxone. (8) Fever Assessment & Plan: Continue ceftriaxone. Await blood culture results. (9) Increased ammonia level (10) Acute encephalopathy Assessment & Plan: MRI brain=neg infarct or hemorrhage. ?Due to elevated ammonia Assessment/Plan Discussed with son, Richard Salty Oliver MD Aug 13, 2018 18:13
--- NOTE | 2018-08-13 19:22 | NUR ---
HAND-OFF: Report given to PERLA Moreira. Patient calm and quiet at this time perla painter
--- NOTE | 2018-08-13 19:30 | NUR ---
NURSE NOTES: Received patient in no apparent distress. Alert with confusion. IV site patent and intact. Bed in lowest position. Call light within reach. Will continue to monitor.
[2018-08-13 20:00] VITALS: BP 120/63
[2018-08-13] MEDS: Tamsulosin 0.4mg cap ORAL SCH (20:41)
--- NOTE | 2018-08-13 21:51 | General Progress Note ---
Assessment/Plan Problem List: (1) Acute encephalopathy ICD Codes: G93.40 - Encephalopathy, unspecified SNOMED: 20103712, 467535787 Status: stable Assessment/Plan risperdal .5mg po qhs the pt lacks capacity to make decisions/ Subjective Neurologic/Psychiatric: Reports: anxiety Allergies: Coded Allergies: No Known Allergies (Unverified , 08/08/18) Subjective the pt cont to be confused and disorganized Objective Last 24 Hour Vital Signs Date Time Temp Pulse Resp B/P (MAP) Pulse Ox O2 Delivery O2 Flow Rate FiO2 08/13/18 20:41 87 120/63 08/13/18 20:00 97.9 87 18 120/63 (82) 98 08/13/18 16:04 98.1 88 18 108/64 (79) 96 08/13/18 11:46 97.9 82 18 117/61 (79) 98 08/13/18 08:31 84 116/68 08/13/18 08:31 116/68 08/13/18 08:18 Room Air 08/13/18 08:00 97.5 84 18 113/61 (78) 98 08/13/18 04:00 98.9 84 16 116/68 (84) 98 08/13/18 00:00 98.2 91 17 129/70 (89) 95 08/12/18 22:24 89 120/60 Intake and Output 08/12/18 08/13/18 19:00 07:00 Intake Total 790 ml 600 ml Balance 790 ml 600 ml Intake Oral 240 ml IV Total 550 ml 600 ml # Voids 2 2 # Bowel Movements 2 Laboratory Tests 08/13/18 00:20: Stool Occult Blood Negative 08/13/18 07:20: White Blood Count 3.4L, Red Blood Count 3.49L, Hemoglobin 11.6L, Hematocrit 33.7L, Mean Corpuscular Volume 96, Mean Corpuscular Hemoglobin 33.3H, Mean Corpuscular Hemoglobin Concent 34.5, Red Cell Distribution Width 12.9, Platelet Count 42L, Mean Platelet Volume 7.6, Neutrophils (%) (Auto) , Lymphocytes (%) ( Auto) , Monocytes (%) (Auto) , Eosinophils (%) (Auto) , Basophils (%) (Auto) , Differential Total Cells Counted 100, Neutrophils % (Manual) 72, Lymphocytes % ( Manual) 17L, Monocytes % (Manual) 7, Eosinophils % (Manual) 1, Basophils % ( Manual) 1, Band Neutrophils 2, Platelet Estimate DecreasedL, Platelet Morphology Normal, Red Blood Cell Morphology Normal, Sodium Level 137, Potassium Level 4.0, Chloride Level 105, Carbon Dioxide Level 28, Anion Gap 4L, Blood Urea Nitrogen 8, Creatinine 0.7, Estimat Glomerular Filtration Rate > 60, Glucose Level 99#, Calcium Level 7.6L Height (Feet): 5 Height (Inches): 5.00 Weight (Pounds): 132 General Appearance: alert, confused, agitated Luis Jackson MD Aug 13, 2018 21:51
[2018-08-14] VITALS: BP 110/55
[2018-08-14 04:00] VITALS: BP 109/66
[2018-08-14] MEDS: Oxybutynin 5mg tab ORAL SCH (06:17)
[2018-08-14] MEDS: NovoLOG Insulin Flexpen SUBQ SCH ×4 (06:19→11:56)
--- NOTE | 2018-08-14 07:30 | NUR ---
HAND-OFF: Report given to Belinda DUNCAN.
[2018-08-14 08:00] VITALS: BP 105/56
[2018-08-14] MEDS: Lactulose 20gm/30ml UDC ORAL SCH ×2 (08:19→12:09)
[2018-08-14] MEDS: Fluconazole 100mg tab ORAL SCH (08:19)
[2018-08-14] MEDS: Propranolol 10mg tab ORAL SCH (08:19)
[2018-08-14] MEDS: Spironolactone 50mg tab ORAL SCH (08:20)
[2018-08-14] MEDS: [UNRECOGNIZED DRUG - REMARK] ORAL SCH (08:22)
[2018-08-14] MEDS: Levemir Flexpen SUBQ SCH (08:24)
[2018-08-14] MEDS: LORazepam Inj 2mg/ml 1ml IV PRN (08:50)
--- NOTE | 2018-08-14 09:32 | Infectious Diseases Prog Note ---
Assessment/Plan Assessment/Plan 67 yo male with PMHx of DM, Hep B, Liver cerrhosis and BPH who was sent to the ED from his [place] [facility] for increaed confusion and and low bloos sugar. UTI UA positive, confusion decreased glucose UCx 08/08 - Yeast Fever 102 - resolved No leukocytosis Hypogylcememia - Resolved Confusion - Not at baseline per family Likely secondary to liver cirrhosis Ascites No pain or leukocytosis so SBP less likely US 08/09/18 - Evidence of hepatic cirrhosis, with hepatic surface nodularity and coarsened echogenicity, portal hypertension, with trace ascites, enlarged splenic vein, and possible bronson hepatis, splenic hilar varices, and splenomegaly, Unusual structure anteromedial to the right hepatic lobe. Stool-filled hepatic flexure of the colon. However, true mass lesion not completely excludable, and CT should be considered for better characterization - 08/11/18 - SP EGD DM HLD Liver cirrhosis Hep B Portal hypertention BPH PLAN - Continue Flucoanzole 100mg PO Qday for 7 days ( End date 08/15/18) - 08/13/18 SP Ceftriaxone #5- (UTI? less likely SBP) - Monitor CBC and temps We will continue to follow the patient during this hospitalization. Subjective Allergies: Coded Allergies: No Known Allergies (Unverified , 08/08/18) Subjective Still a little confused Afebrile Objective Vital Signs Last 24 Hour Vital Signs Date Time Temp Pulse Resp B/P (MAP) Pulse Ox O2 Delivery O2 Flow Rate FiO2 08/14/18 08:19 91 109/66 08/14/18 08:19 109/66 08/14/18 04:00 97.6 91 19 109/66 (80) 98 08/14/18 00:00 98.1 86 18 110/55 (73) 98 08/13/18 21:00 Room Air 08/13/18 20:41 87 120/63 08/13/18 20:00 97.9 87 18 120/63 (82) 98 08/13/18 16:04 98.1 88 18 108/64 (79) 96 08/13/18 11:46 97.9 82 18 117/61 (79) 98 Height (Feet): 5 Height (Inches): 5.00 Weight (Pounds): 132 Objective Gen: NAD, Awake and alert HEENT: NCAT, MMM, EOMI LUNGS: CTAB, No W CARDS: RRR, S1, S2 ABD: Soft, NT, Distended, + BS Current Medications Medications (Trade) Dose Ordered Sig/Aubrey Route PRN Reason Start Time Stop Time Status Last Admin Dose Admin Acetaminophen (Tylenol) 650 mg Q6H PRN ORAL Mild Pain/Temp > 100.5 08/09/18 07:45 09/08/18 07:44 08/09/18 16:09 Ceftriaxone Sodium 1 gm/ Dextrose 55 ml @ 110 mls/hr Q24H IVPB 08/08/18 12:00 08/15/18 11:59 08/13/18 11:46 Dextrose (Dextrose 50%) 25 ml Q30M PRN IV Hypoglycemia 08/09/18 13:15 09/08/18 13:14 Dextrose (Dextrose 50%) 50 ml Q30M PRN IV Hypoglycemia 08/09/18 13:15 09/08/18 13:14 Fluconazole (Diflucan) 100 mg DAILY ORAL 08/11/18 09:00 08/18/18 08:59 08/14/18 08:19 Insulin Aspart (NovoLOG) BEFORE MEALS AND HS SUBQ 08/08/18 16:30 09/07/18 16:29 08/14/18 06:19 Insulin Aspart (NovoLOG) 8 units NOVOTIAC SUBQ 08/10/18 11:50 09/08/18 16:49 08/14/18 06:20 Insulin Detemir (Levemir) 12 units BID SUBQ 08/10/18 09:00 09/08/18 13:59 08/14/18 08:24 Isosorbide Dinitrate (Isordil) 30 mg DAILY ORAL 08/08/18 11:00 09/07/18 10:59 08/14/18 08:19 Lactulose (Cephulac) 30 gm THREE TIMES A DAY ORAL 08/08/18 13:00 09/07/18 12:59 08/14/18 08:19 Lorazepam (Ativan 2mg/ml 1ml) 1 mg Q4H PRN IV For Anxiety 08/09/18 19:00 08/16/18 18:59 08/14/18 08:50 Oxybutynin Chloride (Ditropan) 10 mg BEFORE BREAKFAST ORAL 08/09/18 06:30 09/08/18 06:29 08/14/18 06:17 Patient Own Medication (Patient's Own Med) 1 ea DAILY ORAL 08/13/18 09:00 09/12/18 08:59 08/14/18 08:22 Propranolol HCl (Inderal) 10 mg EVERY 12 HOURS ORAL 08/08/18 21:00 09/07/18 20:59 08/14/18 08:19 Rifaximin (Xifaxan) 550 mg EVERY 12 HOURS ORAL 08/08/18 21:00 08/15/18 20:59 08/14/18 08:19 Risperidone (RisperDAL) 0.5 mg BEDTIME ORAL 08/10/18 21:00 09/09/18 20:59 08/13/18 20:41 Sodium Chloride 1,000 ml @ 50 mls/hr Q20H IV 08/09/18 15:00 09/08/18 14:59 08/13/18 20:41 Spironolactone (Aldactone) 50 mg DAILY ORAL 08/09/18 09:00 09/08/18 08:59 08/14/18 08:20 Tamsulosin HCl (Flomax) 0.4 mg BEDTIME ORAL 08/08/18 21:00 09/07/18 20:59 08/13/18 20:41 Raji Thomas MD Aug 14, 2018 09:32
[2018-08-14 10:25] LABS: HEMATOCRIT 30.2 % (42.0-52.0); HEMOGLOBIN 10.2 G/DL (14.2-18.0); MEAN CORPUSCULAR VOLUME 97 FL (80-99); PLATELET COUNT 37 K/UL (150-450); RED BLOOD COUNT 3.11 M/UL (4.70-6.10); RED CELL DISTRIBUTION WIDTH 12.7 % (11.6-14.8); WHITE BLOOD COUNT 3.3 K/UL (4.8-10.8)
[2018-08-14 10:43] LABS: INR 1.7 (0.9-1.1)
--- NOTE | 2018-08-14 10:44 | NUR ---
DISCHARGE PLANNING PATIENT HAS BEEN REFERRED BACK TO: [facility] P:[phone] F:[phone] Addendum: 08/14/18 at 1050 by RODRICK PARRY CM SPOKE TO LEISA PETERSEN WILL BE RETURNING TO ROOM# 33-B "SKILLED".
--- NOTE | 2018-08-14 10:46 | NUR ---
SPOKE TO LEISA PT WILL BE RETURNING TO ROOM# 33-B "SKILLED".
[2018-08-14 11:00] LABS: ALANINE AMINOTRANSFERASE 81 U/L (12-78); ALBUMIN 1.4 G/DL (3.4-5.0); ALBUMIN/GLOBULIN RATIO 0.4 (1.0-2.7); ALKALINE PHOSPHATASE 154 U/L (46-116); ANION GAP 5 mmol/L (5-15); ASPARTATE AMINO TRANSFERASE 81 U/L (15-37); BILIRUBIN,TOTAL 2.9 MG/DL (0.2-1.0); BLOOD UREA NITROGEN 12 mg/dL (7-18); CALCIUM 7.9 MG/DL (8.5-10.1); CARBON DIOXIDE 27 MMOL/L (21-32); CHLORIDE 104 MMOL/L (98-107); CREATININE 0.9 MG/DL (0.55-1.30); PHOSPHORUS 2.8 MG/DL (2.5-4.9); POTASSIUM 4.2 MMOL/L (3.5-5.1); SODIUM 136 MMOL/L (136-145)
[2018-08-14] MEDS ORDERED: Haloperidol 5mg/ml Inj IM PRN (12:00)
[2018-08-14] MEDS: cefTRIAXone 1 GM in D5W 55 ML IVPB SCH (12:09)
[2018-08-14 12:56] VITALS: BP 112/61
--- NOTE | 2018-08-14 13:42 | GI Progress Note ---
Assessment/Plan Problems: (1) Acute encephalopathy ICD Codes: G93.40 - Encephalopathy, unspecified SNOMED: 20318168, [id number] (2) Hepatic cirrhosis ICD Codes: K74.60 - Unspecified cirrhosis of liver SNOMED: 95419243 (3) Anemia ICD Codes: D64.9 - Anemia, unspecified SNOMED: 595082631 Qualifiers: Qualified Codes: D64.9 - Anemia, unspecified (4) Cirrhosis of liver ICD Codes: K74.60 - Unspecified cirrhosis of liver SNOMED: 55697587 (5) Hepatitis B ICD Codes: B19.10 - Unspecified viral hepatitis B without hepatic coma SNOMED: 32521761 (6) Portal hypertension ICD Codes: K76.6 - Portal hypertension SNOMED: 93050669 (7) hepatitis Status: stable Status Narrative Discussed with Dr. Floyd. Assessment/Plan Patient is currently being treated for hepatitis B as an outpatient Elevated ammonia levels now resolved AFP WNL SUMMARY OF FINDINGS: 1. Grade 1 distal esophageal varices with no banding. 2. Prior history of banding with scar in the distal esophagus. 3. Portal hypertensive gastropathy. RECOMMENDATIONS: Followup biopsy results and treat accordingly. continue propranolol Continue lactulose and rifaximin As needed transfusions PPI Follow-up labs patient qualifies for liver transplant The patient was seen and examined at bedside and all new and available data was reviewed in the patients chart. I agree with the above findings, impression and plan. (Patient seen earlier today. Signature stamp does not reflect patient encounter time.). - Jamarcus Floyd MD Subjective Subjective Limited Objective Last 24 Hour Vital Signs Date Time Temp Pulse Resp B/P (MAP) Pulse Ox O2 Delivery O2 Flow Rate FiO2 08/14/18 12:56 97.8 83 19 112/61 (78) 98 08/14/18 08:19 91 109/66 08/14/18 08:19 109/66 08/14/18 08:10 Room Air 08/14/18 08:00 97.3 89 18 105/56 (72) 98 08/14/18 04:00 97.6 91 19 109/66 (80) 98 08/14/18 00:00 98.1 86 18 110/55 (73) 98 08/13/18 21:00 Room Air 08/13/18 20:41 87 120/63 08/13/18 20:00 97.9 87 18 120/63 (82) 98 08/13/18 16:04 98.1 88 18 108/64 (79) 96 Intake and Output 08/13/18 08/14/18 18:59 06:59 Intake Total 1355 ml 600 ml Output Total 250 ml Balance 1105 ml 600 ml Intake Oral 750 ml IV Total 605 ml 600 ml Output Urine Total 250 ml # Voids 2 2 # Bowel Movements 2 2 Laboratory Tests Test 08/14/18 09:40 White Blood Count 3.3 K/UL (4.8-10.8) L Red Blood Count 3.11 M/UL (4.70-6.10) L Hemoglobin 10.2 G/DL (14.2-18.0) L Hematocrit 30.2 % (42.0-52.0) L Mean Corpuscular Volume 97 FL (80-99) Mean Corpuscular Hemoglobin 32.9 PG (27.0-31.0) H Mean Corpuscular Hemoglobin Concent 33.9 G/DL (32.0-36.0) Red Cell Distribution Width 12.7 % (11.6-14.8) Platelet Count 37 K/UL (150-450) L Mean Platelet Volume 7.9 FL (6.5-10.1) Neutrophils (%) (Auto) % (45.0-75.0) Lymphocytes (%) (Auto) % (20.0-45.0) Monocytes (%) (Auto) % (1.0-10.0) Eosinophils (%) (Auto) % (0.0-3.0) Basophils (%) (Auto) % (0.0-2.0) Differential Total Cells Counted 100 Neutrophils % (Manual) 71 % (45-75) Lymphocytes % (Manual) 17 % (20-45) L Monocytes % (Manual) 10 % (1-10) Eosinophils % (Manual) 1 % (0-3) Basophils % (Manual) 1 % (0-2) Band Neutrophils 0 % (0-8) Platelet Estimate Decreased L Platelet Morphology Normal Red Blood Cell Morphology Normal Prothrombin Time 17.4 SEC (9.30-11.50) H Prothromb Time International Ratio 1.7 (0.9-1.1) H Activated Partial Thromboplast Time 44 SEC (23-33) H Sodium Level 136 MMOL/L (136-145) Potassium Level 4.2 MMOL/L (3.5-5.1) Chloride Level 104 MMOL/L (98-107) Carbon Dioxide Level 27 MMOL/L (21-32) Anion Gap 5 mmol/L (5-15) Blood Urea Nitrogen 12 mg/dL (7-18) Creatinine 0.9 MG/DL (0.55-1.30) Estimat Glomerular Filtration Rate > 60 mL/min (>60) Glucose Level 312 MG/DL (74-106) #H Calcium Level 7.9 MG/DL (8.5-10.1) L Phosphorus Level 2.8 MG/DL (2.5-4.9) Magnesium Level 1.6 MG/DL (1.8-2.4) L Total Bilirubin 2.9 MG/DL (0.2-1.0) H Direct Bilirubin 1.0 MG/DL (0.0-0.3) H Aspartate Amino Transf (AST/SGOT) 81 U/L (15-37) H Alanine Aminotransferase (ALT/SGPT) 81 U/L (12-78) H Alkaline Phosphatase 154 U/L (46-116) H Total Protein 5.1 G/DL (6.4-8.2) L Albumin 1.4 G/DL (3.4-5.0) L Globulin 3.7 g/dL Albumin/Globulin Ratio 0.4 (1.0-2.7) L Height (Feet): 5 Height (Inches): 5.00 Weight (Pounds): 132 General Appearance: no apparent distress Cardiovascular: normal rate Respiratory/Chest: no respiratory distress Abdominal Exam: normal bowel sounds, non tender, soft Extremities: normal range of motion, non-tender Sujata Jackson NP Aug 14, 2018 13:42
--- NOTE | 2018-08-14 14:21 | Pulmonology Progress Note ---
Assessment/Plan Problems: (1) Acute encephalopathy (2) Hepatic cirrhosis (3) Hypoglycemia due to type 1 diabetes mellitus (4) UTI (urinary tract infection) (5) Thrombocytopenia (6) Anemia (7) Leukopenia (8) hepatitis (9) History of diabetes mellitus Assessment/Plan feeling better all reviewed no new complains f/u ammonia level check cultures iv fluids lactulose blood smear pending feeling better Hepatitis panel showing Hep S dc to assisted today, med/recon done Subjective ROS Limited/Unobtainable: No Constitutional: Reports: no symptoms HEENT: Repors: no symptoms Allergies: Coded Allergies: No Known Allergies (Unverified , 08/08/18) Objective Last 24 Hour Vital Signs Date Time Temp Pulse Resp B/P (MAP) Pulse Ox O2 Delivery O2 Flow Rate FiO2 08/14/18 12:56 97.8 83 19 112/61 (78) 98 08/14/18 08:19 91 109/66 08/14/18 08:19 109/66 08/14/18 08:10 Room Air 08/14/18 08:00 97.3 89 18 105/56 (72) 98 08/14/18 04:00 97.6 91 19 109/66 (80) 98 08/14/18 00:00 98.1 86 18 110/55 (73) 98 08/13/18 21:00 Room Air 08/13/18 20:41 87 120/63 08/13/18 20:00 97.9 87 18 120/63 (82) 98 08/13/18 16:04 98.1 88 18 108/64 (79) 96 Intake and Output 08/13/18 08/14/18 18:59 06:59 Intake Total 1355 ml 600 ml Output Total 250 ml Balance 1105 ml 600 ml Intake Oral 750 ml IV Total 605 ml 600 ml Output Urine Total 250 ml # Voids 2 2 # Bowel Movements 2 2 Objective General Appearance: WD/WN, no apparent distress Lines, tubes and drains: peripheral HEENT: normocephalic, atraumatic Neck: non-tender, normal alignment Respiratory/Chest: chest wall non-tender, decreased breath sounds Cardiovascular/Chest: normal peripheral pulses, normal rate Abdomen: normal bowel sounds, non tender Genitourinary/Rectal: normal genital exam Extremities: normal range of motion, non-tender Skin Exam: normal pigmentation Neurologic: systems architect II-XII grossly normal Laboratory Tests 08/14/18 09:40: White Blood Count 3.3L, Red Blood Count 3.11L, Hemoglobin 10.2L, Hematocrit 30.2L, Mean Corpuscular Volume 97, Mean Corpuscular Hemoglobin 32.9H, Mean Corpuscular Hemoglobin Concent 33.9, Red Cell Distribution Width 12.7, Platelet Count 37L, Mean Platelet Volume 7.9, Neutrophils (%) (Auto) , Lymphocytes (%) ( Auto) , Monocytes (%) (Auto) , Eosinophils (%) (Auto) , Basophils (%) (Auto) , Differential Total Cells Counted 100, Neutrophils % (Manual) 71, Lymphocytes % ( Manual) 17L, Monocytes % (Manual) 10, Eosinophils % (Manual) 1, Basophils % ( Manual) 1, Band Neutrophils 0, Platelet Estimate DecreasedL, Platelet Morphology Normal, Red Blood Cell Morphology Normal, Prothrombin Time 17.4H, Prothromb Time International Ratio 1.7H, Activated Partial Thromboplast Time 44H , Sodium Level 136, Potassium Level 4.2, Chloride Level 104, Carbon Dioxide Level 27, Anion Gap 5, Blood Urea Nitrogen 12, Creatinine 0.9, Estimat Glomerular Filtration Rate > 60, Glucose Level 312#H, Calcium Level 7.9L, Phosphorus Level 2.8, Magnesium Level 1.6L, Total Bilirubin 2.9H, Direct Bilirubin 1.0H, Aspartate Amino Transf (AST/SGOT) 81H, Alanine Aminotransferase (ALT/SGPT) 81H, Alkaline Phosphatase 154H, Total Protein 5.1L, Albumin 1.4L, Globulin 3.7, Albumin/Globulin Ratio 0.4L Current Medications Medications (Trade) Dose Ordered Sig/Aubrey Route PRN Reason Start Time Stop Time Status Last Admin Dose Admin Acetaminophen (Tylenol) 650 mg Q6H PRN ORAL Mild Pain/Temp > 100.5 08/09/18 07:45 09/08/18 07:44 08/09/18 16:09 Ceftriaxone Sodium 1 gm/ Dextrose 55 ml @ 110 mls/hr Q24H IVPB 08/08/18 12:00 08/15/18 11:59 08/14/18 12:09 Dextrose (Dextrose 50%) 25 ml Q30M PRN IV Hypoglycemia 08/09/18 13:15 09/08/18 13:14 Dextrose (Dextrose 50%) 50 ml Q30M PRN IV Hypoglycemia 08/09/18 13:15 09/08/18 13:14 Fluconazole (Diflucan) 100 mg DAILY ORAL 08/11/18 09:00 08/18/18 08:59 08/14/18 08:19 Haloperidol Lactate (Haldol) 5 mg Q6H PRN IM Agitation 08/14/18 12:00 09/13/18 11:59 Insulin Aspart (NovoLOG) BEFORE MEALS AND HS SUBQ 08/08/18 16:30 09/07/18 16:29 08/14/18 11:55 Insulin Aspart (NovoLOG) 8 units NOVOTIAC SUBQ 08/10/18 11:50 09/08/18 16:49 08/14/18 11:56 Insulin Detemir (Levemir) 12 units BID SUBQ 08/10/18 09:00 09/08/18 13:59 08/14/18 08:24 Isosorbide Dinitrate (Isordil) 30 mg DAILY ORAL 08/08/18 11:00 09/07/18 10:59 08/14/18 08:19 Lactulose (Cephulac) 30 gm THREE TIMES A DAY ORAL 08/08/18 13:00 09/07/18 12:59 08/14/18 12:09 Lorazepam (Ativan 2mg/ml 1ml) 1 mg Q4H PRN IV For Anxiety 08/09/18 19:00 08/16/18 18:59 08/14/18 08:50 Oxybutynin Chloride (Ditropan) 10 mg BEFORE BREAKFAST ORAL 08/09/18 06:30 09/08/18 06:29 08/14/18 06:17 Patient Own Medication (Patient's Own Med) 1 ea DAILY ORAL 08/13/18 09:00 09/12/18 08:59 08/14/18 08:22 Propranolol HCl (Inderal) 10 mg EVERY 12 HOURS ORAL 08/08/18 21:00 09/07/18 20:59 08/14/18 08:19 Rifaximin (Xifaxan) 550 mg EVERY 12 HOURS ORAL 08/08/18 21:00 08/15/18 20:59 08/14/18 08:19 Risperidone (RisperDAL) 1 mg BEDTIME ORAL 08/14/18 21:00 09/13/18 20:59 Sodium Chloride 1,000 ml @ 50 mls/hr Q20H IV 08/09/18 15:00 09/08/18 14:59 08/13/18 20:41 Spironolactone (Aldactone) 50 mg DAILY ORAL 08/09/18 09:00 09/08/18 08:59 08/14/18 08:20 Tamsulosin HCl (Flomax) 0.4 mg BEDTIME ORAL 08/08/18 21:00 09/07/18 20:59 08/13/18 20:41 Macy Jasso MD Aug 14, 2018 14:21
--- NOTE | 2018-08-14 14:34 | NUR ---
DISCHARGE PLANNED PATIENT DISCHARGE TO: [facility]. ROOM#33-B SKILLED T: [phone] FOR NURSE TO NURSE REPORT [facility] HAS BEEN ARRANGED FOR [facility] AT [id number]
--- NOTE | 2018-08-14 15:14 | General Progress Note ---
Assessment/Plan Problem List: (1) Acute encephalopathy ICD Codes: G93.40 - Encephalopathy, unspecified SNOMED: 44591845, 584817869 Status: stable Assessment/Plan risperdal 1mg po qhs the pt lacks capacity to make decisions/ aativan prn haldol IM prn the son gave concert to above meds Subjective Neurologic/Psychiatric: Reports: anxiety, depressed, emotional problems Allergies: Coded Allergies: No Known Allergies (Unverified , 08/08/18) Subjective the pt cont to be confused and disorganized was agitated today spoke to son at length. the pts son was concerned about pt receiving Ativan the pt pulled out his IV and was severely agitated. Objective Last 24 Hour Vital Signs Date Time Temp Pulse Resp B/P (MAP) Pulse Ox O2 Delivery O2 Flow Rate FiO2 08/14/18 12:56 97.8 83 19 112/61 (78) 98 08/14/18 08:19 91 109/66 08/14/18 08:19 109/66 08/14/18 08:10 Room Air 08/14/18 08:00 97.3 89 18 105/56 (72) 98 08/14/18 04:00 97.6 91 19 109/66 (80) 98 08/14/18 00:00 98.1 86 18 110/55 (73) 98 08/13/18 21:00 Room Air 08/13/18 20:41 87 120/63 08/13/18 20:00 97.9 87 18 120/63 (82) 98 08/13/18 16:04 98.1 88 18 108/64 (79) 96 Intake and Output 08/13/18 08/14/18 19:00 07:00 Intake Total 1355 ml 550 ml Output Total 250 ml Balance 1105 ml 550 ml Intake Oral 750 ml IV Total 605 ml 550 ml Output Urine Total 250 ml # Voids 2 2 # Bowel Movements 2 2 Laboratory Tests 08/14/18 09:40: White Blood Count 3.3L, Red Blood Count 3.11L, Hemoglobin 10.2L, Hematocrit 30.2L, Mean Corpuscular Volume 97, Mean Corpuscular Hemoglobin 32.9H, Mean Corpuscular Hemoglobin Concent 33.9, Red Cell Distribution Width 12.7, Platelet Count 37L, Mean Platelet Volume 7.9, Neutrophils (%) (Auto) , Lymphocytes (%) ( Auto) , Monocytes (%) (Auto) , Eosinophils (%) (Auto) , Basophils (%) (Auto) , Differential Total Cells Counted 100, Neutrophils % (Manual) 71, Lymphocytes % ( Manual) 17L, Monocytes % (Manual) 10, Eosinophils % (Manual) 1, Basophils % ( Manual) 1, Band Neutrophils 0, Platelet Estimate DecreasedL, Platelet Morphology Normal, Red Blood Cell Morphology Normal, Prothrombin Time 17.4H, Prothromb Time International Ratio 1.7H, Activated Partial Thromboplast Time 44H , Sodium Level 136, Potassium Level 4.2, Chloride Level 104, Carbon Dioxide Level 27, Anion Gap 5, Blood Urea Nitrogen 12, Creatinine 0.9, Estimat Glomerular Filtration Rate > 60, Glucose Level 312#H, Calcium Level 7.9L, Phosphorus Level 2.8, Magnesium Level 1.6L, Total Bilirubin 2.9H, Direct Bilirubin 1.0H, Aspartate Amino Transf (AST/SGOT) 81H, Alanine Aminotransferase (ALT/SGPT) 81H, Alkaline Phosphatase 154H, Total Protein 5.1L, Albumin 1.4L, Globulin 3.7, Albumin/Globulin Ratio 0.4L Height (Feet): 5 Height (Inches): 5.00 Weight (Pounds): 132 General Appearance: alert, confused, agitated Luis Jackson MD Aug 14, 2018 15:14
--- NOTE | 2018-08-14 15:41 | Internal Med Progress Note ---
Subjective Physician Name Charles Fontenot Attending Physician Charles Fontenot MD Current Medications Medications (Trade) Dose Ordered Sig/Aubrey Route PRN Reason Start Time Stop Time Status Last Admin Dose Admin Acetaminophen (Tylenol) 650 mg Q6H PRN ORAL Mild Pain/Temp > 100.5 08/09/18 07:45 09/08/18 07:44 08/09/18 16:09 Ceftriaxone Sodium 1 gm/ Dextrose 55 ml @ 110 mls/hr Q24H IVPB 08/08/18 12:00 08/15/18 11:59 08/14/18 12:09 Dextrose (Dextrose 50%) 25 ml Q30M PRN IV Hypoglycemia 08/09/18 13:15 09/08/18 13:14 Dextrose (Dextrose 50%) 50 ml Q30M PRN IV Hypoglycemia 08/09/18 13:15 09/08/18 13:14 Fluconazole (Diflucan) 100 mg DAILY ORAL 08/11/18 09:00 08/18/18 08:59 08/14/18 08:19 Haloperidol Lactate (Haldol) 5 mg Q6H PRN IM Agitation 08/14/18 12:00 09/13/18 11:59 Insulin Aspart (NovoLOG) BEFORE MEALS AND HS SUBQ 08/08/18 16:30 09/07/18 16:29 08/14/18 11:55 Insulin Aspart (NovoLOG) 8 units NOVOTIAC SUBQ 08/10/18 11:50 09/08/18 16:49 08/14/18 11:56 Insulin Detemir (Levemir) 12 units BID SUBQ 08/10/18 09:00 09/08/18 13:59 08/14/18 08:24 Isosorbide Dinitrate (Isordil) 30 mg DAILY ORAL 08/08/18 11:00 09/07/18 10:59 08/14/18 08:19 Lactulose (Cephulac) 30 gm THREE TIMES A DAY ORAL 08/08/18 13:00 09/07/18 12:59 08/14/18 12:09 Lorazepam (Ativan 2mg/ml 1ml) 1 mg Q4H PRN IV For Anxiety 08/09/18 19:00 08/16/18 18:59 08/14/18 08:50 Oxybutynin Chloride (Ditropan) 10 mg BEFORE BREAKFAST ORAL 08/09/18 06:30 09/08/18 06:29 08/14/18 06:17 Patient Own Medication (Patient's Own Med) 1 ea DAILY ORAL 08/13/18 09:00 09/12/18 08:59 08/14/18 08:22 Propranolol HCl (Inderal) 10 mg EVERY 12 HOURS ORAL 08/08/18 21:00 09/07/18 20:59 08/14/18 08:19 Rifaximin (Xifaxan) 550 mg EVERY 12 HOURS ORAL 08/08/18 21:00 08/15/18 20:59 08/14/18 08:19 Risperidone (RisperDAL) 1 mg BEDTIME ORAL 08/14/18 21:00 09/13/18 20:59 Sodium Chloride 1,000 ml @ 50 mls/hr Q20H IV 08/09/18 15:00 09/08/18 14:59 08/13/18 20:41 Spironolactone (Aldactone) 50 mg DAILY ORAL 08/09/18 09:00 09/08/18 08:59 08/14/18 08:20 Tamsulosin HCl (Flomax) 0.4 mg BEDTIME ORAL 08/08/18 21:00 09/07/18 20:59 08/13/18 20:41 Allergies: Coded Allergies: No Known Allergies (Unverified , 08/08/18) Subjective open eyes, not verbal, confused, NAD Objective Last Vital Signs Date Time Temp Pulse Resp B/P (MAP) Pulse Ox O2 Delivery O2 Flow Rate FiO2 08/14/18 12:56 97.8 83 19 112/61 (78) 98 08/14/18 08:10 Room Air 08/11/18 13:32 3 Laboratory Tests Test 08/14/18 09:40 White Blood Count 3.3 K/UL (4.8-10.8) L Red Blood Count 3.11 M/UL (4.70-6.10) L Hemoglobin 10.2 G/DL (14.2-18.0) L Hematocrit 30.2 % (42.0-52.0) L Mean Corpuscular Volume 97 FL (80-99) Mean Corpuscular Hemoglobin 32.9 PG (27.0-31.0) H Mean Corpuscular Hemoglobin Concent 33.9 G/DL (32.0-36.0) Red Cell Distribution Width 12.7 % (11.6-14.8) Platelet Count 37 K/UL (150-450) L Mean Platelet Volume 7.9 FL (6.5-10.1) Neutrophils (%) (Auto) % (45.0-75.0) Lymphocytes (%) (Auto) % (20.0-45.0) Monocytes (%) (Auto) % (1.0-10.0) Eosinophils (%) (Auto) % (0.0-3.0) Basophils (%) (Auto) % (0.0-2.0) Differential Total Cells Counted 100 Neutrophils % (Manual) 71 % (45-75) Lymphocytes % (Manual) 17 % (20-45) L Monocytes % (Manual) 10 % (1-10) Eosinophils % (Manual) 1 % (0-3) Basophils % (Manual) 1 % (0-2) Band Neutrophils 0 % (0-8) Platelet Estimate Decreased L Platelet Morphology Normal Red Blood Cell Morphology Normal Prothrombin Time 17.4 SEC (9.30-11.50) H Prothromb Time International Ratio 1.7 (0.9-1.1) H Activated Partial Thromboplast Time 44 SEC (23-33) H Sodium Level 136 MMOL/L (136-145) Potassium Level 4.2 MMOL/L (3.5-5.1) Chloride Level 104 MMOL/L (98-107) Carbon Dioxide Level 27 MMOL/L (21-32) Anion Gap 5 mmol/L (5-15) Blood Urea Nitrogen 12 mg/dL (7-18) Creatinine 0.9 MG/DL (0.55-1.30) Estimat Glomerular Filtration Rate > 60 mL/min (>60) Glucose Level 312 MG/DL (74-106) #H Calcium Level 7.9 MG/DL (8.5-10.1) L Phosphorus Level 2.8 MG/DL (2.5-4.9) Magnesium Level 1.6 MG/DL (1.8-2.4) L Total Bilirubin 2.9 MG/DL (0.2-1.0) H Direct Bilirubin 1.0 MG/DL (0.0-0.3) H Aspartate Amino Transf (AST/SGOT) 81 U/L (15-37) H Alanine Aminotransferase (ALT/SGPT) 81 U/L (12-78) H Alkaline Phosphatase 154 U/L (46-116) H Total Protein 5.1 G/DL (6.4-8.2) L Albumin 1.4 G/DL (3.4-5.0) L Globulin 3.7 g/dL Albumin/Globulin Ratio 0.4 (1.0-2.7) L Intake and Output 08/13/18 08/14/18 19:00 07:00 Intake Total 1355 ml 550 ml Output Total 250 ml Balance 1105 ml 550 ml Intake Oral 750 ml IV Total 605 ml 550 ml Output Urine Total 250 ml # Voids 2 2 # Bowel Movements 2 2 Assessment/Plan Status Narrative MRI Brain: Impression: Negative for acute intracranial bleed, mass effect, or infarct Chronic and age-related changes, as described Evidence of old left parietal microbleed Assessment/Plan (1) Acute encephalopathy most likely hepatic encephalopathy. ICD Codes: G93.40 - Encephalopathy, unspecified SNOMED: 14010528, 732560974 (2) Hepatic cirrhosis ICD Codes: K74.60 - Unspecified cirrhosis of liver SNOMED: 19915654 (3) Anemia ICD Codes: D64.9 - Anemia, unspecified SNOMED: 911453984 Qualifiers: Qualified Codes: D64.9 - Anemia, unspecified (4) Cirrhosis of liver ICD Codes: K74.60 - Unspecified cirrhosis of liver SNOMED: 94280138 (5) Hepatitis B ICD Codes: B19.10 - Unspecified viral hepatitis B without hepatic coma SNOMED: 85737953 (6) Portal hypertension ICD Codes: K76.6 - Portal hypertension SNOMED: 28309255 (7) DM type 2 Assessment/Plan Patient is currently being treated for hepatitis B as an outpatient Elevated ammonia levels now resolved AFP WNL SUMMARY OF FINDINGS: 1. Grade 1 distal esophageal varices with no banding. 2. Prior history of banding with scar in the distal esophagus. 3. Portal hypertensive gastropathy. RECOMMENDATIONS: Followup biopsy results and treat accordingly. continue propranolol Continue lactulose and rifaximin As needed transfusions PPI Follow-up labs patient qualifies for liver transplant Plan: DC planning to SNF in AM. Charles Fontenot MD Aug 14, 2018 15:41
[2018-08-14 16:00] VITALS: BP 109/58
--- NOTE | 2018-08-14 16:30 | NUR ---
nurse notes discharged in stable condition with all belongings taken , discharge via private car, accompanied by ambulance personnel report given accordingly, tere painter
--- NOTE | 2018-08-14 16:41 | NUR ---
nurse notes discharge back to [facility], Called and spoke to Krupa daughter made aware regarding plan of care, tere painter
--- NOTE | 2018-08-16 09:33 | Discharge Summary ---
Discharge Summary Discharge Summary _ DATE OF ADMISSION: 08/08/2018 DATE OF DISCHARGE: 08/14/2018 DISCHARGED BY: Dr. Fontenot REASON FOR ADMISSION: 87 years old male with past medical history of insulin-dependent diabetes mellitus,, chronic hepatitis B, liver cirrhosis, portal hypertension, benign prostatic hypertrophy, hypercholesterolemia, presented with complaint of hypoglycemia and [facility] for [facility]. Patient was diaphoretic , hypotensive and with altered mental status. Blood glucose was 27. Patient was given 1 ampule of D50. Patient felt better , however was still weak. No nausea ,no vomiting, no fever no chills. Upon evaluation in the emergency department vital signs were stable. Laboratory workup revealed WBC 2.9 ,hemoglobin 10.4 hematocrit 29.4 platelet 47. Ammonia level 80 . Troponin was negative ,EKG revealed normal sinus rhythm, no acute ischemic changes. Urinalysis revealed moderate yeast, few bacteria ,evidence of significant pyuria and microscopic hematuria. Chest x-ray revealed mild left hilar bronchiectasis , no acute consolidation. Patient was admitted for further management. CONSULTANTS: pulmonary Dr. Jasso ID specialist Dr. Delgado GI specialist Dr. Floyd psychiatrist hat measurer Dr. Kellogg [facility] COURSE: Patient admitted and started on intravenous fluids with dextrose. Endocrinology consult was requested. Patient started on empiric antibiotic for urinary tract infection. Blood sugar stabilized with IV dextrose , and hat measurer started patient on long-acting Levemir daily along with short acting insulin 3 times a day before meals. Sliding scale of insulin was on board as needed. Blood sugar remained stable , no further episodes of hypoglycemia. Infectious disease specialist followed. Urine culture revealed Kiley. Blood cultures were negative. Patient was on fluconazole for total of 7-day. Ceftriaxone 5-day treatment was completed. Supplemental oxygen provided as needed to keep pulse oximetry above 92%. Pulmonary toilet was on standby as needed. Follow-up chest x-ray revealed no significant changes. Prior to discharge pulse oximetry stable on room air. GI specialist closely followed. Patient initially started on lactulose and Xifaxan for hepatic encephalopathy. Abdominal ultrasound was ordered for evaluation of liver malignancy as well as ascites and degree of cirrhosis. Abdominal ultrasound revealed evidence of hepatic cirrhosis with hepatic surface nodularity and coarsened echogenicity. 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 No gallstones no dilated ducts. Propranolol was continued. Serum alpha-fetoprotein was negative. CEA 7.8. Patient undergone upper endoscopy with biopsy ,which revealed grade 1 distal esophageal varices. Gastric biopsy demonstrated mild chronic gastritis , but no H. pylori. Hepatitis panel was positive for hepatitis B surface antigen. Patient is being treated for chronic hepatitis B as outpatient. Elevated ammonia resolved, prior to discharge ammonia 24. Hemoglobin and hematocrit were closely monitored with goal to keep hemoglobin above 7. Stool for occult blood was negative x2. Prior to discharge hemoglobin 10.2. Patient started on proton pump inhibitor. Per GI note , patient qualifies for liver transplant. MRI of the brain revealed no evidence of acute intracranial bleeding mass- effect or infarct. Chronic age-related changes noted. Evidence of old left parietal micro bleeding noted as well. Psychiatrist closely followed and diagnosed patient with acute encephalopathy. Per psychiatrist , patient lacked capacity to make informed decisions. Psychiatric medication regimen was optimized , after son gave consent for medications. Patient clinically stabilized and was ready for [facility] to [facility] for [facility] of care. FINAL DIAGNOSES: Hypoglycemia due to diabetes mellitus type 1 Acute encephalopathy, most likely hepatic encephalopathy Hepatic cirrhosis Chronic hepatitis B Portal hypertension Kiley UTI Anemia Thrombocytopenia Leukopenia DISCHARGE MEDICATIONS: See Medication Reconciliation list. DISCHARGE INSTRUCTIONS: [facility] was [facility] to the [facility] facility. Follow up with medical doctor at the facility. I have been assigned to dictate discharge summary for this account. I was not involved in the patient's management. Pat Borden NP Aug 16, 2018 09:33
--- NOTE | 2018-08-17 18:10 | Cardiology Report ---
APPROVED REPORT EKG Measurement Heart [id number] Normal sinus rhythm Right bundle branch block Abnormal ECG
== END 2018-08-14 16:00 | DRG 638 ==
LOC: EDBD 03:59 → EMR 04:10 → 3E 06:00 → EDBEDREQ 06:47 → 3E 13:11 → 4E 08-10 13:00
PROC: 0DB68ZX Excision of Stomach, Via Natural or Artificial Opening Endoscopic, Diagnostic (ICD-10-PCS; principal; 2018-08-11 12:51)
PROC: 0DB78ZX Excision of Stomach, Pylorus, Via Natural or Artificial Opening Endoscopic, Diagnostic (ICD-10-PCS; principal; 2018-08-11 12:51)
DX: E10.649 Type 1 diabetes mellitus with hypoglycemia without coma (principal); K76.6 Portal hypertension; B18.1 Chronic viral hepatitis B without delta-agent; B37.49 Other urogenital candidiasis; I85.10 Secondary esophageal varices without bleeding; K74.60 Unspecified cirrhosis of liver; K31.89 Other diseases of stomach and duodenum; Z79.4 Long term (current) use of insulin; N40.0 Benign prostatic hyperplasia without lower urinary tract symptoms; Z79.82 Long term (current) use of aspirin; E78.00 Pure hypercholesterolemia, unspecified; I10 Essential (primary) hypertension; K72.90 Hepatic failure, unspecified without coma; D64.9 Anemia, unspecified; D69.6 Thrombocytopenia, unspecified; K29.50 Unspecified chronic gastritis without bleeding
CPT/HCPCS: 36415; 70551; 71045; 76700; 80048; 80053; 81001; 82105; 82140; 82150; 82248; 82270; 82378; 82607; 82746; 82962; 83540; 83550; 83615; 83690; 83735; 84100; 84132; 84484; 85007; 85025; 85044; 85060; 85610; 85651; 85730; 86140; 86705; 86709; 86803; 87040; 87081; 87086; 87340; 93005; 94003; 94150; 96361; 96365; 99285; J1815; J2250; J3430; S5561